=== PATIENT | female | born 2000 | race Caucasian/White ===

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

== ENCOUNTER 2021-02-11 18:42 | Emergency (ER) | payer MEDICAID, SELFPAY ==
[2021-02-11 19:02] VITALS: BP 123/86; PULSE 97; RESP 20; TEMP 37; O2SAT 97
--- NOTE | 2021-02-11 19:17 | ED_ITS ---
HPI - COVID General: Chief Complaint: COVID symptoms Stated Complaint: Cough, Covid + Results Time Seen by Provider: 02/11/21 19:16 Triage information: Has fever, cough or shortness of breath . Exposure to COVID + person last 14 days History of Present Illness: HPI Narrative: 20-year-old female comes in today for persistent cough and congestion for about 2 weeks. Patient been treated for bronchitis. Patient had a COVID-19 test done from [employer] and it tested positive. Patient has come in for a verification of the test due to where she works. Patient reports some cough and congestion with some mild shortness of breath. COVID 19 common symptoms: positive non-productive cough and dyspnea COVID Results: SARS-CoV-2 Antigen (Rapid) Positive (Negative) H 02/11/21 19:51 02/11/21 SARS-CoV-2 RNA (RT-PCR) See comment 05/12/20 10:52 05/12/20 Review of Systems General: Reports: 10 or more systems reviewed and unremarkable except in HPI and below Resp: Reports: dyspnea and non-productive cough PFSH ED PFSH: Medical History Pelvic pain Surgical History No history of previous surgery S/P breast biopsy Benign cyst Family History Father Seizures Hypertension Stroke Mother No problems noted. Grandmother Hypertension paternal Grandfather Hypertension paternal Diabetes paternal Family/Other Diabetes paternal uncle Social History Smoking and tobacco status: never smoked Alcohol intake: never Marital status: Number of children: 1 Current occupational status: employed Physical Exam Const: COMMON NORMALS: no acute distress and patient oriented x3 GENERAL APPEARANCE: cooperative HENMT: COMMON NORMALS: normocephalic, TM's normal bilaterally and Normal external nose present HEAD & SCALP: normal to inspection and normocephalic NOSE: Normal external nose present TYMPANIC MEMBRANE: TM's normal bilaterally MOUTH: Normal oral and palatal mucosa present THROAT: posterior oropharynx normal Eye: GENERAL EYE: appearance normal, both eyes and all related structures Neck/C-Spine: COMMON NORMALS: full ROM Lymph: LYMPHATIC: no lymphadenopathy noted Chest: COMMONS NORMALS: normal inspection of the chest Resp: COMMON NORMALS: normal respiratory effort and clear to auscultation bilaterally EFFORT & INSPECTION: Yes able to speak in complete sentences AUSCULTATION: clear to auscultation bilaterally Cardio: COMMON NORMALS: regular rate and regular rhythm RATE: regular rate RHYTHM: regular rhythm GI: COMMON NORMALS: non-tender : COMMON NORMALS: Yes no CVA tenderness BLADDER/KIDNEY EXAM: Yes no CVA tenderness Back/Pelvis: COMMON NORMALS: no CVA tenderness and thoracic and lumbar spine normal to inspection Extremity: COMMON NORMALS: normal to inspection Neuro: COMMON NORMALS: patient oriented x3 and moves all extremities Psych: COMMON NORMALS: mental status grossly normal and cooperative Skin: COMMON NORMALS: no rashes or lesions noted GENERAL SKIN EXAM: no rashes or lesions noted Course Vital Signs: Vital signs: Vital Signs Temperature 98.6 F 02/11/21 19:02 Pulse Rate 97 02/11/21 19:02 Respiratory Rate 20 H 02/11/21 19:02 Blood Pressure 152/105 02/11/21 19:41 Pulse Oximetry 98 02/11/21 19:41 MDM - COVID MDM Narrative: Medical decision making narrative: 20-year-old female comes in today for complaints of chest discomfort. Patient reports that she has been ill for probably about 2 weeks but has had 2 rounds of antibiotics without any help. Patient reports over last 2 to 3 days she has felt worse. On exam patient Vital signs are normal. Respirations are even lungs are clear to auscultation. Skin is warm and dry color is pink. Differential diagnosis includes bronchitis, pneumonia, COVID-19. X-ray noted no pneumonia. COVID-19 test was positive. Patient did have a positive home COVID-19 test t00. Recommended out of work for 1 week. Encourage plenty of fluids and activity as tolerated. Lab Data: Labs: Lab Results 02/11/21 Range/Units 19:51 SARS-CoV-2 Ag (Rap id) Positive H (Negative) COVID Results: SARS-CoV-2 Antigen (Rapid) Positive (Negative) H 02/11/21 19:51 02/11/21 SARS-CoV-2 RNA (RT-PCR) See comment 05/12/20 10:52 05/12/20 Discharge Plan Discharge Patient Disposition: Home Clinical Impression: COVID-19 Condition: Stable Prescriptions: No Action medroxyprogesterone [Depo-Provera] 150 mg/mL suspension 150 mg IM .every 90 days Qty: 1 RF: 2 Vistaril 25 mg capsule 25 mg PO BID Qty: 20 RF: 0 Discharge Orders: Discharge ED (Routine); Ordered 02/11/21 Ordered By: Tramaine Villalobos Referrals: Shoshana Looney FNP [Primary Care Provider] - Discharge Diet: Usual diet Discharge Activity: Increase activity as tolerated Patient Instructions: Viral Syndrome (ED), Opioid Safety Activity Restrictions/Additional Instructions: Encourage plenty of fluids. Use acetaminophen and ibuprofen for pain. Activity as tolerated. Follow-up with primary care as needed. Return to the ED for new concerns. Stand Alone Forms: Work/School Release Coding Level of Care Code ED Interrelated Special Education Teacher for Jesse Fwamy Exam Comprehensive
--- NOTE | 2021-02-11 19:26 | XRR_ITS ---
PROCEDURE INFORMATION: Exam: XR Chest Exam date and time: 02/11/2021 7:26 PM Age: 20 years old Clinical indication: Cough; Additional info: Cough, congestion TECHNIQUE: Imaging protocol: XR of the chest. Views: 1 view. COMPARISON: CR XR chest 1V portable [id number] 11/10/2019 10:07 PM FINDINGS: Lungs: Unremarkable. No consolidation. Pleural spaces: Unremarkable. No pleural effusion. No pneumothorax. Heart/Mediastinum: Unremarkable. No cardiomegaly. Bones/joints: Unremarkable. XR/XR chest 1V portable [id number] IMPRESSION: No acute findings.
[2021-02-11 19:41] VITALS: BP 152/105; O2SAT 98
[2021-02-11 20:56] LABS: SARS Covid-2 Antigen Positive (Negative)
[2021-02-11 21:18] VITALS: BP 171/99; PULSE 97; RESP 18; O2SAT 96
== END 2021-02-11 21:20 | disposition home or self-care (01) ==
PROVIDERS: Emergency Provider Nurse Practitioner Family; PCP Nurse Practitioner Family
DX: U07.1 COVID-19 (principal)
CPT/HCPCS: 71045; 87426; 99283

== ENCOUNTER → 2021-02-21 09:58 | Outpatient (BNVA) | payer MEDICAID, SELFPAY | PROVIDERS: PCP Nurse Practitioner Family; Visit Provider Podiatrist Foot & Ankle Surgery | DX: M25.571 Pain in right ankle and joints of right foot (principal) | CPT/HCPCS: 73630 ==

== ENCOUNTER → 2021-04-20 11:18 | Outpatient (BNVA) | payer MEDICAID, SELFPAY | PROVIDERS: PCP Nurse Practitioner Family; Visit Provider Obstetrics & Gynecology | DX: N93.9 Abnormal uterine and vaginal bleeding, unspecified (principal) | CPT/HCPCS: 83036; 83525; 84443 ==

== ENCOUNTER 2021-07-16 10:01 | Outpatient (CLI) | payer MEDICAID, SELFPAY ==
[2021-07-17 14:08] LABS: Insulin ( Reference Lab Test) 20.9 uIU/mL
== END 2021-07-16 10:02 | disposition home or self-care (01) ==
LOC: LAB 10:08
PROVIDERS: PCP Nurse Practitioner Family; Visit Provider Obstetrics & Gynecology
DX: N92.6 Irregular menstruation, unspecified (principal)
CPT/HCPCS: 36415; 76830; 81025; 83525; 84702

== ENCOUNTER 2021-08-02 21:32 | Emergency (ER) | payer MEDICAID, SELFPAY ==
[2021-08-02 21:42] VITALS: BP 135/95; PULSE 99; RESP 16; TEMP 36.6; O2SAT 99; BMI 34.0
--- NOTE | 2021-08-02 23:09 | ED_ITS ---
HPI - General Adult General: Chief complaint: General Medical Stated complaint: diabetic, preg, dizzy Time Seen by Provider: 08/02/21 23:07 History of Present Illness: HPI narrative: 21-year-old female comes in today with complaints of malaise and a headache. Patient appears well. Patient appears no acute distress. Patient states that she just found out she was but does not tell me how she knows she is whether she took a test at home or a test at another clinic. Patient said that she was tested at [facility] for COVID-19 and was negative. Review of the record noted that patient had a test on the third of this month and it was negative. Patient reports that she is trying to get . Patient is to have some lab work tomorrow morning at her OBs office to confirm . Associated symptoms: Reports malaise Review of Systems Const: Reports: malaise [facility] PFSH: Medical History (Updated 08/03/21 @ 00:27 by ALLIE Garcia) Hand pain Pelvic pain Surgical History No history of previous surgery S/P breast biopsy Benign cyst Family History Father Seizures Hypertension Stroke Mother No problems noted. Grandmother Hypertension paternal Grandfather Hypertension paternal Diabetes paternal Family/Other Diabetes paternal uncle Social History (Updated 07/16/21 @ 08:31 by Unique Whitten LPN) Smoking and tobacco status: never smoked Alcohol intake: never Marital status: Number of children: 1 Physical Exam Const: COMMON NORMALS: patient oriented x3 and healthy appearing NUTRITIONAL APPEARANCE: overweight HENMT: COMMON NORMALS: atraumatic HEAD & SCALP: atraumatic Neck/C-Spine: COMMON NORMALS: full ROM Resp: COMMON NORMALS: normal respiratory effort Cardio: COMMON NORMALS: regular rate and regular rhythm RATE: regular rate RHYTHM: regular rhythm Extremity: COMMON NORMALS: no pedal edema Neuro: COMMON NORMALS: patient oriented x3 Psych: ATTITUDE: Yes calm Skin: COMMON NORMALS: no rashes or lesions noted GENERAL SKIN EXAM: no rashes or lesions noted Course Vital Signs: Vital signs: Vital Signs Temperature 97.8 F 08/02/21 21:42 Pulse Rate 77 08/02/21 23:31 Respiratory Rate 16 08/02/21 21:42 Blood Pressure 129/75 08/02/21 23:31 Pulse Oximetry 99 08/02/21 21:42 MDM - General Adult MDM Narrative: Medical decision making narrative: Patient comes in today with complaints of a headache and some dizziness. Patient did have a positive test and has been working hard to get . On exam respirations are even lungs are clear to auscultation. Vital signs are normal. Patient is not orthostatic. No neural deficits are noted. Differential diagnosis includes but not limited to dehydration, migraine headache, tension headache, malingering. La boratory values were unremarkable. Urinalysis was contaminated with large amounts of skin cells. Patient's hCG was approximately 740. Recommended patient drink plenty of water I do not recommend any medications at this time for her headache. Recommend may be some muscle rub and contact her primary care or NEGATIVE DEVELOPER tomorrow about what they would recommend. Patient agreed to plan and need for follow-up or return to the ER. Lab Data: Labs: Lab Results 08/02/21 08/02/21 08/02/21 23:10 23:26 23:26 WBC 11.7 10^3/uL 10^3 /uL (4.5-13.0) RBC 4.79 10^6/uL 10^6 /uL (4.1-5.3) Hgb 13.1 g/dL g/dL (11.5-15.3) Hct 40.7 % % (37.0-47.0) MCV 85.0 fl fl (81-99) MCH 27.3 pg L pg (28.0-34.0) MCHC 32.2 g/dL g/dL (30.0-36.0) RDW 13.9 % % (12.1-15.1) Plt Count 250 10^3/cmm 10^3 /cmm (130-400) MPV 13.3 fL H fL (7.4-10.4) Neut % (Auto) 60.0 % % Lymph % (Auto) 29.6 % % Lipscomb % (Auto) 7.2 % % Eos % (Auto) 2.4 % % Baso % (Auto) 0.5 % % Neut # (Auto) 6.98 10^3/uL 10^3 /uL (1.8-8.0) Lymph # (Auto) 3.5 10^3/uL 10^3/ uL (1.5-6.5) Lipscomb # (Auto) 0.8 10^3/uL 10^3/ uL (0.2-0.9) Eos # (Auto) 0.3 10^3/uL 10^3/ uL (0.0-0.8) Baso # (Auto) 0.1 10^3/uL 10^3/ uL (0.0-0.1) Nucleated RBC % (a uto) 0 % % Nucleated RBCs # 0.0 /100WBC /100W BC Sodium 138 mmol/L mmol/L (136-145) Potassium 3.6 mmol/L mmol/L (3.5-5.1) Chloride 103 mmol/L mmol/L (98-107) Carbon Dioxide 22 mmol/L mmol/L (22-29) Anion Gap 16.6 (5-19) BUN 8 mg/dL mg/dL (6-20) Creatinine 0.5 mg/dL mg/dL (0.5-0.9) GFR Calculation 157.3 mL/min H mL /min (90-130) Glucose 94 mg/dL mg/dL (65-115) Calculated Osmolal ity 284 mOsm/kg L mOs m/kg (285-295) Calcium 8.4 mg/dL L mg/dL (8.5-10.5) Ser , Erin i-Qnt 792.00 mIU/mL mIU /mL Urine Color Yellow (Yellow) Urine Appearance Hazy A (CLEAR) Urine pH 5 (5-7) Ur Specific Gravit y 1.030 (1.005-1.030) Urine Protein Neg (Negative) Urine Glucose (UA) Norm (Normal) Urine Ketones Negative (Negative) Urine Blood Neg (Negative) Urine Nitrate Negative (Negative) Urine Bilirubin Neg (Negative) Urine Urobilinogen Norm mg/dL mg/dL (Negative) Ur Leukocyte Regina ase 2+ H (Negative) Urine RBC 0-4 /hpf H /hpf (0-2) Urine WBC 40-55 /hpf H /hpf (0-5) Ur Squamous Epith Cells 40-55 /hpf H /hpf (0-5) Calcium Oxalate Cr ystal 0-4 /hpf H /hpf Amorphous Sediment Not Reportable Urine Bacteria 2+ /hpf H /hpf (NONE) Urine Mucus 2+ /hpf /hpf Discharge Plan Discharge Patient Disposition: Home Clinical Impression: and infectious disease in first trimester Headache Qualifiers: Headache type: unspecified Headache chronicity pattern: acute headache Intractability: not intractable Qualified Code(s): R51.9 - Headache, unspecified Condition: Stable Prescriptions: No Action No Known Home Medications RF: 0 Discharge Orders: Discharge ED (Routine); Ordered 08/03/21 Ordered By: Tramaine Villalobos Referrals: Shoshana Looney FNP [Primary Care Provider] - Discharge Diet: Usual diet Discharge Activity: Increase activity as tolerated Activity Restrictions/Additional Instructions: Home and rest. Drink plenty of fluids. Follow-up with primary care or NEGATIVE DEVELOPER in the morning for further evaluation and treatment. Return to the ER as needed. Coding Level of Care Code ED Edge Bander Operator for Jesse Fwd Exam Comprehensive
[2021-08-02 23:27] LABS: Add Urine Culture? No; Add Urine Microscopic? YES; Bacteria Urine 2+ /hpf; Bilirubin Urine Neg (Negative); Blood Urine Neg (Negative); Calcium Oxalate Crystals Urine 0-4 /hpf; Glucose Urine UA Norm (Normal); Ketones Urine Negative (Negative); Leukocyte Esterase Urine 2+ (Negative); Mucus Urine 2+ /hpf; Nitrate Urine Negative (Negative); Protein Urine Neg (Negative); RBC Urine 0-4 /hpf (0-2); Squamous Epithelial Cell Urine 40-55 /hpf (0-5); Urine Appearance Hazy (CLEAR); Urine Color Yellow (Yellow); Urobilinogen Urine Norm (Negative); WBC Urine 40-55 /hpf (0-5); pH Urine 5 (5-7)
[2021-08-02 23:31] VITALS: BP 127/89; BP 129/75; BP 137/96; PULSE 77; PULSE 91; PULSE 92
[2021-08-02 23:37] LABS: Basophils # 0.1 10^3/uL (0.0-0.1); Basophils % 0.5 %; Eosinophils # 0.3 10^3/uL (0.0-0.8); Eosinophils % 2.4 %; Hematocrit 40.7 % (37.0-47.0); Hemoglobin 13.1 g/dL (11.5-15.3); Lymphocytes # 3.5 10^3/uL (1.5-6.5); Lymphocytes % 29.6 %; Mean Corpuscular HGB Conc 32.2 g/dL (30.0-36.0); Mean Corpuscular Hemoglobin 27.3 pg (28.0-34.0); Monocytes # 0.8 10^3/uL (0.2-0.9); Monocytes % 7.2 %; Neutrophils # 6.98 10^3/uL (1.8-8.0); Nucleated Red Blood Cells % 0 %; Platelet Count 250 10^3/cmm (130-400); Red Blood Count 4.79 10^6/uL (4.1-5.3); Red Cell Distribution Width 13.9 % (12.1-15.1); White Blood Count 11.7 10^3/uL (4.5-13.0)
[2021-08-02 23:55] LABS: Mean Platelet Volume 13.3 fL (7.4-10.4)
[2021-08-03 00:19] LABS: Anion Gap 16.6 (5-19); Blood Urea Nitrogen 8 mg/dL (6-20); Calcium 8.4 mg/dL (8.5-10.5); Carbon Dioxide 22 mmol/L (22-29); Chloride 103 mmol/L (98-107); Glomerular Filtration Rate 157.3 mL/min (90-130); Glucose 94 mg/dL (65-115); Osmolality Calculated 284 mOsm/kg (285-295); Potassium 3.6 mmol/L (3.5-5.1); Sodium 138 mmol/L (136-145)
== END 2021-08-03 00:40 | disposition home or self-care (01) ==
PROVIDERS: Family Medicine; Emergency Provider Nurse Practitioner Family; PCP Nurse Practitioner Family
DX: O98.911 Unspecified maternal infectious and parasitic disease complicating pregnancy, first trimester (principal); Z3A.00 Weeks of gestation of pregnancy not specified; O26.891 Other specified pregnancy related conditions, first trimester; R51.9 Headache, unspecified; R42 Dizziness and giddiness
CPT/HCPCS: 80048; 81001; 84702; 85025; 99283

== ENCOUNTER → 2021-08-06 09:35 | Outpatient (BNVA) | payer MEDICAID, SELFPAY | PROVIDERS: PCP Nurse Practitioner Family; Visit Provider Obstetrics & Gynecology | DX: Z32.01 Encounter for pregnancy test, result positive (principal) | CPT/HCPCS: 84702 ==

== ENCOUNTER 2021-08-13 15:21 | Outpatient (CLI) | payer MEDICAID, SELFPAY ==
--- NOTE | 2021-08-13 15:30 | US_ITS ---
WS: [id number] EARLY OBSTETRICAL ULTRASOUND (<14 WEEKS). HISTORY: Z34.90 - Encounter for supervision of normal , dating evaluation. COMPARISON: None available. Single intrauterine gestational sac is identified. Cardiac activity at 116 BPM. [place]-rump length angy sures 0.5 cm which corresponds to a gestation of 6w2d. Normal-appearing yolk sac and amnion demonstra mala. No subchorionic hemorrhage. No free fluid. Cystic mass in the LEFT adnexa inseparable from the ovary. There is a tiny soft tissue nodule associa mala with cyst. This cyst was a complex cyst on the prior study of 07/16/2021 with thick septations. The re is some increased vascularity noted within the septations. There are no septations identified on t jacquie's examination although there is a soft tissue nodule within the wall. LEFT adnexal cyst measures 3.6 x 3.8 x 3.8 cm. Mural nodule measures 1.0 x 0.5 cm. US/US OB <=14 wk fetus w transvag IMPRESSION: 1. Single intrauterine gestation of 6 weeks 2 days with an EDC of 04/06/2022. 2. Large LEFT adnexal cyst with a nodule. This is probably a corpus luteum cys t. Thick septations with mild increased vascularity noted on the prior ultrasou nd of 07/16/2021 where associated with the ovary. Septations are no longer presen t. Recommend short-term reevaluation of the LEFT ovary to be sure this cystic m ass resolves and that this is a corpus luteum of . Recommend follow-up ultrasound in 4-6 weeks. Transvaginal ultrasound may be necessary.
== END 2021-08-13 15:22 | disposition home or self-care (01) ==
PROVIDERS: PCP Nurse Practitioner Family; Visit Provider Obstetrics & Gynecology
DX: Z34.01 Encounter for supervision of normal first pregnancy, first trimester; Z3A.01 Less than 8 weeks gestation of pregnancy
CPT/HCPCS: 76801; 76817

== ENCOUNTER 2021-08-14 16:43 | Outpatient (CLI) | payer MEDICAID, SELFPAY ==
[2021-08-14 16:59] LABS: Add Urine Microscopic? YES; Bilirubin Urine 1+ (Negative); Blood Urine Neg (Negative); Glucose Urine UA Norm (Normal); Ketones Urine Negative (Negative); Leukocyte Esterase Urine 2+ (Negative); Nitrate Urine Negative (Negative); Protein Urine Neg (Negative); Urine Appearance SL Hazy (CLEAR); Urine Color Yellow (Yellow); Urobilinogen Urine Norm (Negative); pH Urine 5 (5-7)
[2021-08-14 17:09] LABS: Add Urine Culture? No; Bacteria Urine 1+ /hpf; Mucus Urine 1+ /hpf; Squamous Epithelial Cell Urine 15-25 /hpf (0-5); WBC Urine 0-4 /hpf (0-5)
== END 2021-08-14 16:44 | disposition home or self-care (01) ==
PROVIDERS: PCP Nurse Practitioner Family; Visit Provider Obstetrics & Gynecology
DX: R39.9 Unspecified symptoms and signs involving the genitourinary system (principal)
CPT/HCPCS: 81001; 87086

== ENCOUNTER → 2021-08-23 00:01 | Outpatient (BNVA) | payer MEDICAID, SELFPAY | PROVIDERS: PCP Nurse Practitioner Family; Visit Provider Obstetrics & Gynecology | DX: R39.9 Unspecified symptoms and signs involving the genitourinary system (principal) | CPT/HCPCS: 81000; 87086 ==

== ENCOUNTER → 2021-08-28 14:51 | Outpatient (BNVA) | payer MEDICAID, SELFPAY | PROVIDERS: PCP Nurse Practitioner Family; Visit Provider Nurse Practitioner Women's Health | DX: Z34.80 Encounter for supervision of other normal pregnancy, unspecified trimester (principal) | CPT/HCPCS: 81000 ==

== ENCOUNTER → 2021-09-17 11:20 | Outpatient (BNVA) | payer MEDICAID, SELFPAY | PROVIDERS: PCP Nurse Practitioner Family; Visit Provider Obstetrics & Gynecology | DX: O09.899 Supervision of other high risk pregnancies, unspecified trimester (principal) | CPT/HCPCS: 80307; 84315; 84443; 85025; 86592; 86762; 86803; 86850; 86900; 87086; 87340 ==

== ENCOUNTER → 2021-10-22 08:31 | Outpatient (BNVA) | payer MEDICAID, SELFPAY | PROVIDERS: PCP Nurse Practitioner Family; Visit Provider Obstetrics & Gynecology | DX: O09.899 Supervision of other high risk pregnancies, unspecified trimester (principal) | CPT/HCPCS: 81000 ==

== ENCOUNTER 2021-11-05 09:35 | Emergency (ER) | payer MEDICAID, SELFPAY ==
[2021-11-05 09:53] VITALS: BP 123/85; PULSE 97; RESP 15; TEMP 37.4; O2SAT 97; BMI 30.9
--- NOTE | 2021-11-05 10:13 | CT_ITS ---
WS: [id number] CT HEAD NONCONTRAST HISTORY: worst headache she has ever had, left side weakness TECHNIQUE: Contiguous axial imaging performed through the brain in 2.5 mm imaging. Bone and soft tiss ue windows. Sagittal and coronal reformats reviewed. All CT scans at [facility] use at least one of these dose optimization techniques: automated exposure control; mA and/or kV adjustment per pa tient size (includes targeted exams where dose is matched to clinical indication); or iterative recon struction. DLP: 893.6 mGy.cm COMPARISON: None available. No acute intracranial hemorrhage, midline shift or mass effect. No atrophy or prior infarcts or herniation. Ventricles: Normal size with no hydrocephalus. Paranasal sinuses: As visualized are clear. Mastoid air cells: Well pneumatized. Calvarium and scalp: Skull is intact with no soft tissue edema or swelling. CT/CT head wo con* [id number] IMPRESSION: Negative head CT.
--- NOTE | 2021-11-05 10:15 | ED_ITS ---
HPI - Headache General: Chief Complaint: Headache Stated Complaint: headache, weakness Time Seen by Provider: 11/05/21 10:02 History of Present Illness: Patient is a 21-year-old female who is 18 weeks comes to the ED with a headache and some left-sided weakness. Patient was seen at her OB doctor today. Patient had a normal OB exam and heart tones were normal at OB appointment today. She told OB doctor about her headache and left-sided weakness and they sent her here to the ED to be evaluated. Patient says she is having the worst headache she ever had is on the left side of her head. She rates it a 10 out of 10. She says has been going on for the past 3 weeks. Today she woke up and had some weakness to her left arm and left leg. Headache worsens with light. She denies any nausea or emesis. She does not have a history of migraines. Denies any vision changes. Denies any vaginal bleeding or concerns about current . Associated symptoms: Deny chest pain, fever(s), nausea, rash or vomiting Review of Systems Const: Denies: fever(s), chills or fatigue Eyes: Denies: change in vision or eye discomfort ENMT: Denies: throat pain, odynophagia, nasal discharge or nasal congestion Card: Denies: chest pain, palpitations, edema, swelling of feet/ankles, dyspnea on exertion or orthopnea Resp: Denies: dyspnea, productive cough or non-productive cough GI: Denies: abdominal pain, nausea, vomiting, diarrhea, constipation or hematochezia : Denies: flank pain, dysuria, hematuria, vaginal bleeding or vaginal discharge Musc: Denies: neck pain, back pain or extremity swelling Skin/Breast: Denies: rash or new lesions Neuro: Reports: headache(s) and weakness in extremities (Left arm and left leg); Denies: numbness in extremities PFS ED PFSH: Medical History Hand pain Hyperprolactinemia Pelvic pain Surgical History No history of previous surgery S/P breast biopsy Benign cyst Family History Father Seizures Hypertension Stroke Mother No problems noted. Grandmother Hypertension paternal Grandfather Hypertension paternal Diabetes paternal Family/Other Diabetes paternal uncle Stomach cancer maternal aunt Denies family history of Colon cancer Ovarian cancer Heart disease Hypercholesteremia Breast cancer Uterine cancer Thyroid disease Physical Exam Const: COMMON NORMALS: no acute distress, patient oriented x3 and alert GENERAL APPEARANCE: cooperative HENMT: COMMON NORMALS: normocephalic HEAD & SCALP: normocephalic MOUTH: Normal oral and palatal mucosa present THROAT: posterior oropharynx normal and uvula midline Eye: COMMON NORMALS: Equal, round and reactive pupils present, EOMs intact bilaterally and conjunctivae normal CONJUNCTIVA: Yes conjunctivae normal PUPIL: Yes Equal, round and reactive pupils present Neck/C-Spine: COMMON NORMALS: supple GENERAL: Yes normal visual inspection Resp: COMMON NORMALS: normal respiratory effort, No retractions, No use of accessory muscles and clear to auscultation bilaterally AUSCULTATION: clear to auscultation bilaterally Cardio: COMMON NORMALS: regular rate, regular rhythm, S1 normal heart sound present, S2 normal heart sound present, No gallops present (Cardio), No clicks present (Cardio), No murmurs present (Cardio) and Peripheral pulses 2+ throughout RATE: regular rate RHYTHM: regular rhythm HEART SOUNDS: S1 normal heart sound present and S2 normal heart sound present PERIPHERAL PULSES: Peripheral pulses 2+ throughout GI: COMMON NORMALS: Normal to inspection, nondistended, normoactive bowel sounds present, Soft to palpation, non-tender and no masses PALPATION: Yes Soft to palpation : COMMON NORMALS: Yes no CVA tenderness BLADDER/KIDNEY EXAM: Yes no CVA tenderness Back/Pelvis: COMMON NORMALS: no CVA tenderness Extremity: COMMON NORMALS: normal to inspection Neuro: COMMON NORMALS: patient oriented x3, CN's II-XII intact bilaterally, moves all extremities, no focal motor deficits and no sensory deficits noted SENSORIUM/ORIENTATION: Yes alert SENSORY EXAM: Yes extremities (intact) MOTOR EXAM: 5/5 motor strength present throughout Skin: GENERAL SKIN EXAM: dry skin Course Reevaluation(s): Reevaluation #1: Patient headache improved after medications. Patient would like to rest has ready to be discharged home. Time: 12:20 Vital Signs: Vital signs: Vital Signs Temperature 98 F 11/05/21 12:55 Pulse Rate 66 11/05/21 12:55 Respiratory Rate 18 11/05/21 12:55 Blood Pressure 129/56 11/05/21 12:55 Pulse Oximetry 96 11/05/21 12:55 MDM - Headache Medical Decision Making Patient is a 21-year-old female comes to the ED with headache. Patient is also 18 weeks and was seen at her OB this morning and they told her to come here to the ED for evaluation of headache. Patient has no or baby concerns. Headaches been going on now for 3 weeks. Vitals are stable. Exam is benign including neuro exam showing no deficits as well. UA was unremarkable. Head CT showed no acute findings. Patient was given IV pain meds here in the ED and headache did improve. Patient was stable for discharge home. She was told to follow-up with her OB at her next scheduled appointment. Lab Data Radiology Impressions Head CT 11/05/21 10:13 IMPRESSION: Negative head CT. Laboratory Results Urine Color Yellow (Yellow) 11/05/21 10:04 Urine Appearance Clear (CLEAR) 11/05/21 10:04 Urine pH 7 (5-7) 11/05/21 10:04 Ur Specific [place] 1.020 (1.005-1.030) 11/05/21 10:04 Urine Protein Neg (Negative) 11/05/21 10:04 Urine Glucose (UA) Norm (Normal) 11/05/21 10:04 Urine Ketones Negative (Negative) 11/05/21 10:04 Urine Blood Neg (Negative) 11/05/21 10:04 Urine Nitrate Negative (Negative) 11/05/21 10:04 Urine Bilirubin Neg (Negative) 11/05/21 10:04 Urine Urobilinogen Norm mg/dL (Negative) 11/05/21 10:04 Ur Leukocyte Esterase Negative (Negative) 11/05/21 10:04 Discharge Plan Discharge Patient Disposition: Home Clinical Impression: Headache Qualifiers: Headache type: unspecified Headache chronicity pattern: acute headache Intractability: not intractable Qualified Code(s): R51.9 - Headache, unspecified Condition: Stable Prescriptions: No Action Gummies 400 mcg-35 mg- 25 mg-5 mg tablet,chewable PO 0RF aspirin [Adult Aspirin Regimen] 81 mg tablet,delayed release (DR/EC) 81 mg PO DAILY 0RF acetaminophen [Tylenol] 325 mg capsule 325 mg PO QID PRN0RF buspirone 5 mg tablet 5 mg PO BID Qty: 60 6RF ondansetron HCl [Zofran] 4 mg tablet 4 mg PO Q6H PRN (Reason: nausea and vomiting) Qty: 30 2RF Rx Instructions: Take one tablet every 6 hours as needed for nausea/vomiting. Discharge Orders: Discharge ED (Routine); Ordered 11/05/21 Ordered By: Trent Overton Referrals: Shoshana Looney FNP [Primary Care Provider] - Discharge Diet: Regular Discharge Activity: Increase activity as tolerated Activity Restrictions/Additional Instructions: Follow-up with your OB provider at your neck scheduled appointment. Take medications as previously prescribed. Return to the ER or your medical provider if condition worsens. Please read and understand discharge instructions. Thank you for choosing [facility] for your healthcare needs today. Please realize this is an emergency room and that we are providing you with a medical screening exam and this may not be complete and all inclusive of all the testing and or work up that you may need to determine your ailment or severity of your illness. It is very important that you follow up as instructed or that you return to the Emergency Department should you have concerns or if your condition changes or worsens in any way. Coding Level of Care Code ED Electrical Appliance Mechanic for Jesse Plunkett Exam Comprehensive
[2021-11-05 10:31] VITALS: BP 136/88; PULSE 80; RESP 18; TEMP 36.6; O2SAT 96
[2021-11-05 10:38] LABS: Add Urine Microscopic? NO; Charge for UA Resulting for Rev
[2021-11-05] MEDS: acetaminophen 1,000 MG/100 ML PIGGYBACK 400 MG IV (10:38)
[2021-11-05] MEDS: diphenhydrAMINE 50 mg/mL SDV 1mL 25 MG IVP (10:38)
[2021-11-05] MEDS: sodium chloride 0.9% 500 ML 999 ML IV (10:39)
[2021-11-05 10:41] LABS: Bilirubin Urine Neg (Negative); Blood Urine Neg (Negative); Glucose Urine UA Norm (Normal); Ketones Urine Negative (Negative); Leukocyte Esterase Urine Negative (Negative); Nitrate Urine Negative (Negative); Protein Urine Neg (Negative); Urine Appearance Clear (CLEAR); Urine Color Yellow (Yellow); Urobilinogen Urine Norm (Negative); pH Urine 7 (5-7)
[2021-11-05] MEDS: HYDROcodone-acetaminophen 7.5-325 mg Tablet 1 TAB PO (11:29)
[2021-11-05 12:55] VITALS: BP 129/56; PULSE 66; RESP 18; TEMP 36.6; O2SAT 96
== END 2021-11-05 12:56 | disposition home or self-care (01) ==
PROVIDERS: Emergency Provider Physician Assistant; PCP Nurse Practitioner Family
DX: O26.892 Other specified pregnancy related conditions, second trimester (principal); R51.9 Headache, unspecified; Z3A.18 18 weeks gestation of pregnancy
CPT/HCPCS: 70450; 81000; 81003; 84443; 87086; 87491; 87591; 87661; 96361; 96374; 96375; 99283; J1200; J7040

== ENCOUNTER → 2021-11-22 08:44 | Outpatient (BNVA) | payer MEDICAID, SELFPAY | PROVIDERS: PCP Nurse Practitioner Family; Visit Provider Obstetrics & Gynecology | DX: O09.899 Supervision of other high risk pregnancies, unspecified trimester (principal); Z3A.00 Weeks of gestation of pregnancy not specified | CPT/HCPCS: 81000 ==

== ENCOUNTER 2021-12-31 11:55 | Outpatient (CLI) | payer MEDICAID, SELFPAY ==
[2021-12-31 11:55] VITALS: BMI 32.2
[2021-12-31 12:04] VITALS: BP 127/66; PULSE 90
[2021-12-31 12:15] LABS: Glucose Point of Care 107 mg/dL (70-110)
[2021-12-31 12:24] VITALS: BP 113/60; PULSE 99
[2021-12-31 12:57] VITALS: BP 113/60; PULSE 99; RESP 18
== END 2021-12-31 12:35 | disposition home or self-care (01) ==
LOC: OPOB 12:01 → OBGYN 12:03
PROVIDERS: PCP Nurse Practitioner Family; Visit Provider Family Medicine
DX: O26.899 Other specified pregnancy related conditions, unspecified trimester (principal); Z3A.00 Weeks of gestation of pregnancy not specified
CPT/HCPCS: 36416; 82962; 99211

== ENCOUNTER 2022-01-22 09:53 | Outpatient (CLI) | payer MEDICAID, SELFPAY ==
[2022-01-22] VITALS (10 sets, daily range): BP systolic 113–134; BP diastolic 53–70; PULSE 72–96; RESP 16–17; TEMP 36.3; BMI 33.1
[2022-01-22 10:55] LABS: Basophils % 0.4 %; Eosinophils # 0.1 10^3/uL (0.0-0.8); Hematocrit 31.4 % (37.0-47.0); Hemoglobin 9.9 g/dL (11.5-15.3); Lymphocytes # 1.9 10^3/uL (1.5-6.5); Lymphocytes % 20.1 %; Mean Corpuscular HGB Conc 31.5 g/dL (30.0-36.0); Mean Corpuscular Hemoglobin 26.6 pg (28.0-34.0); Mean Corpuscular Volume 84.4 fl (81-99); Monocytes # 0.7 10^3/uL (0.2-0.9); Monocytes % 7.3 %; Neutrophils # 6.44 10^3/uL (1.8-8.0); Neutrophils % 67.6 %; Nucleated Red Blood Cells % 0 %; Platelet Count 180 10^3/cmm (130-400); Red Blood Count 3.72 10^6/uL (4.1-5.3); Red Cell Distribution Width 14.1 % (12.1-15.1); White Blood Count 9.5 10^3/uL (4.5-13.0)
[2022-01-22 11:11] LABS: Alanine Aminotransferase < 5 U/L (0-33); Albumin Level 3.5 g/dL (3.5-5.2); Alkaline Phosphatase 60 IU/L (35-105); Anion Gap 15.3 (5-19); Aspartate Amino Transferase 9 U/L (0-32); Blood Urea Nitrogen 5 mg/dL (6-20); Carbon Dioxide 20 mmol/L (22-29); Chloride 105 mmol/L (98-107); Globulin 2.4 g/dL (1.3-4.6); Glomerular Filtration Rate 203.5 mL/min (90-130); Glucose 124 mg/dL (65-115); Osmolality Calculated 283 mOsm/kg (285-295); Potassium 3.3 mmol/L (3.5-5.1); Sodium 137 mmol/L (136-145); Total Bilirubin 0.2 mg/dL (0.15-1.2); Total Protein 5.9 g/dL (6.6-8.7); Uric Acid 3.5 mg/dL (2.4-5.7)
[2022-01-22 11:16] LABS: Mean Platelet Volume 13.7 fL (7.4-10.4)
[2022-01-22 11:17] LABS: Slide Review Slide Review Perform
[2022-01-22 11:26] LABS: Urine Creatinine 227 mg/dL (28-217); Urine Protein Random 19 mg/dL
[2022-01-22 11:27] LABS: UPRO/UCREAT Ratio 0.08 mg/mg CR
[2022-01-22] MEDS: potassium chloride ER 20 mEq Tablet PO (12:42)
[2022-01-22 21:17] LABS: Add Urine Microscopic? YES; Bacteria Urine 1+ /hpf; Bilirubin Urine Neg (Negative); Blood Urine 3+ (Negative); Glucose Urine UA Norm (Normal); Ketones Urine Negative (Negative); Leukocyte Esterase Urine Negative (Negative); Nitrate Urine Negative (Negative); Protein Urine Neg (Negative); RBC Urine 25-40 /hpf (0-2); Specific Gravity, Urine 1.025 (1.005-1.030); Squamous Epithelial Cell Urine 0-4 /hpf (0-5); Urine Appearance Cloudy (CLEAR); Urine Color Yellow (Yellow); Urobilinogen Urine 1 mg/dL (Negative); WBC Urine 0-4 /hpf (0-5); pH Urine 6 (5-7)
[2022-01-22 21:18] LABS: Add Urine Culture? Yes; Amorphous Sediment Urine 2+ /hpf; Calcium Oxalate Crystals Urine 0-4 /hpf
== END 2022-01-22 12:45 | disposition home or self-care (01) ==
LOC: OPOB 09:54 → OBGYN 09:57
PROVIDERS: PCP Nurse Practitioner Family; Visit Provider Family Medicine
DX: O26.899 Other specified pregnancy related conditions, unspecified trimester (principal); Z3A.00 Weeks of gestation of pregnancy not specified; R60.9 Edema, unspecified; R42 Dizziness and giddiness
CPT/HCPCS: 59025; 80053; 81001; 82570; 84156; 84550; 85025; 87086; 99211

== ENCOUNTER → 2022-02-25 08:42 | Outpatient (BNVA) | payer MEDICAID, SELFPAY | PROVIDERS: PCP Nurse Practitioner Family; Visit Provider Obstetrics & Gynecology | DX: O09.899 Supervision of other high risk pregnancies, unspecified trimester (principal); N94.89 Other specified conditions associated with female genital organs and menstrual cycle; O09.291 Supervision of pregnancy with other poor reproductive or obstetric history, first trimester; O99.210 Obesity complicating pregnancy, unspecified trimester | CPT/HCPCS: 81000 ==

== ENCOUNTER → 2022-02-26 07:58 | Outpatient (BNVA) | payer MEDICAID, SELFPAY | PROVIDERS: PCP Nurse Practitioner Family; Visit Provider Obstetrics & Gynecology | DX: O09.899 Supervision of other high risk pregnancies, unspecified trimester (principal); Z3A.00 Weeks of gestation of pregnancy not specified | CPT/HCPCS: 82951; 82952; 85025 ==

== ENCOUNTER → 2022-03-08 13:15 | Outpatient (BNVA) | payer MEDICAID, SELFPAY | PROVIDERS: PCP Nurse Practitioner Family; Visit Provider Obstetrics & Gynecology | DX: R30.0 Dysuria (principal) | CPT/HCPCS: 81000; 87086 ==

== ENCOUNTER 2022-03-10 08:35 | Outpatient (CLI) | payer MEDICAID, SELFPAY ==
[2022-03-10 08:35] VITALS: BMI 36.2
[2022-03-10 08:51] VITALS: BP 135/72; PULSE 125
[2022-03-10 09:06] VITALS: BP 131/65; PULSE 117
[2022-03-10 09:18] LABS: Actim Prom Negative
[2022-03-10 09:21] VITALS: BP 125/65; PULSE 98
[2022-03-10 09:30] VITALS: BP 125/65; PULSE 98; RESP 16
== END 2022-03-10 09:30 | disposition home or self-care (01) ==
LOC: OPOB 08:40 → OBGYN 08:41
PROVIDERS: PCP Nurse Practitioner Family; Visit Provider Obstetrics & Gynecology
DX: O26.899 Other specified pregnancy related conditions, unspecified trimester (principal); Z3A.00 Weeks of gestation of pregnancy not specified; R10.9 Unspecified abdominal pain
CPT/HCPCS: 59025; 84112; 99211

== ENCOUNTER → 2022-03-12 11:27 | Outpatient (BNVA) | payer MEDICAID, SELFPAY | PROVIDERS: PCP Nurse Practitioner Family; Visit Provider Obstetrics & Gynecology | DX: O09.93 Supervision of high risk pregnancy, unspecified, third trimester (principal); Z3A.00 Weeks of gestation of pregnancy not specified | CPT/HCPCS: 81000; 87086 ==

== ENCOUNTER 2022-03-14 15:27 | Outpatient (CLI) | payer MEDICAID, SELFPAY ==
[2022-03-14] VITALS (8 sets, daily range): BP systolic 119–133; BP diastolic 61–82; PULSE 89–104; RESP 16; TEMP 36.1–36.6; BMI 36.7
[2022-03-14 16:29] LABS: Basophils # 0.1 10^3/uL (0.0-0.1); Basophils % 0.6 %; Eosinophils # 0.2 10^3/uL (0.0-0.8); Eosinophils % 1.3 %; Hemoglobin 10.1 g/dL (11.5-15.3); Lymphocytes # 2.1 10^3/uL (1.5-6.5); Lymphocytes % 17.4 %; Mean Corpuscular HGB Conc 30.6 g/dL (30.0-36.0); Mean Corpuscular Hemoglobin 24.9 pg (28.0-34.0); Mean Corpuscular Volume 81.3 fl (81-99); Mean Platelet Volume 14.1 fL (7.4-10.4); Monocytes % 7.9 %; Neutrophils # 8.36 10^3/uL (1.8-8.0); Neutrophils % 68.4 %; Nucleated Red Blood Cells % 0.2 %; Platelet Count 218 10^3/cmm (130-400); Red Blood Count 4.06 10^6/uL (4.1-5.3); White Blood Count 12.2 10^3/uL (4.5-13.0)
[2022-03-14 16:58] LABS: Add Urine Culture? No; Bacteria Urine TRACE /hpf; Bilirubin Urine Neg (Negative); Blood Urine 3+ (Negative); Glucose Urine UA Norm (Normal); Ketones Urine Negative (Negative); Leukocyte Esterase Urine Negative (Negative); Nitrate Urine Negative (Negative); Protein Urine Neg (Negative); RBC Urine 25-40 /hpf (0-2); Squamous Epithelial Cell Urine 0-4 /hpf (0-5); Urine Appearance Clear (CLEAR); Urine Color Yellow (Yellow); WBC Urine 0-4 /hpf (0-5); pH Urine 6 (5-7)
[2022-03-14 17:14] LABS: Alanine Aminotransferase 7 U/L (0-33); Albumin Level 3.2 g/dL (3.5-5.2); Alkaline Phosphatase 87 U/L (35-105); Anion Gap 15.1 (5-19); Aspartate Amino Transferase 10 U/L (0-32); Blood Urea Nitrogen 6 mg/dL (6-20); Calcium 8.6 mg/dL (8.5-10.5); Carbon Dioxide 21 mmol/L (22-29); Chloride 103 mmol/L (98-107); Globulin 2.6 g/dL (1.3-4.6); Glomerular Filtration Rate 203.5 mL/min (90-130); Glucose 76 mg/dL (65-115); Osmolality Calculated 276 mOsm/kg (285-295); Potassium 4.1 mmol/L (3.5-5.1); Sodium 135 mmol/L (136-145); Total Bilirubin 0.2 mg/dL (0.15-1.2); Total Protein 5.8 g/dL (6.6-8.7); Uric Acid 4.1 mg/dL (2.4-5.7)
[2022-03-14 17:16] LABS: Urine Creatinine 89 mg/dL (28-217); Urine Protein Random 9 mg/dL
[2022-03-14 17:26] LABS: Slide Review Slide Review Perform
== END 2022-03-14 17:45 | disposition home or self-care (01) ==
LOC: OPOB 15:28 → OBGYN 15:29
PROVIDERS: Obstetrics & Gynecology; PCP Nurse Practitioner Family; Visit Provider Obstetrics & Gynecology
DX: O26.899 Other specified pregnancy related conditions, unspecified trimester (principal); Z3A.00 Weeks of gestation of pregnancy not specified
CPT/HCPCS: 36415; 59025; 80053; 81000; 81001; 82570; 84156; 84550; 85025; 87081; 87086; 99211

== ENCOUNTER 2022-03-15 18:55 | Outpatient (CLI) | payer MEDICAID, SELFPAY ==
[2022-03-15] VITALS (7 sets, daily range): BP systolic 117–156; BP diastolic 70–78; PULSE 84–111; BMI 36.7
[2022-03-15] MEDS: HYDROcodone-acetaminophen 5-325 mg Tablet 1 TAB PO (20:04)
[2022-03-15 20:31] LABS: Bilirubin Urine Neg (Negative); Blood Urine 3+ (Negative); Glucose Urine UA Norm (Normal); Ketones Urine Negative (Negative); Leukocyte Esterase Urine Trace (Negative); Nitrate Urine Negative (Negative); Protein Urine Neg (Negative); Specific Gravity, Urine 1.015 (1.005-1.030); Urine Appearance Hazy (CLEAR); Urine Color Yellow (Yellow); Urobilinogen Urine Neg (Negative); pH Urine 6 (5-7)
[2022-03-15 20:32] LABS: Add Urine Culture? No; Bacteria Urine TRACE /hpf; Mucus Urine TRACE /hpf; RBC Urine 25-40 /hpf (0-2); Squamous Epithelial Cell Urine 15-25 /hpf (0-5)
== END 2022-03-15 21:00 | disposition home or self-care (01) ==
LOC: OPOB 18:57 → OBGYN 18:58
PROVIDERS: PCP Nurse Practitioner Family; Visit Provider Family Medicine
DX: O26.899 Other specified pregnancy related conditions, unspecified trimester (principal); R03.0 Elevated blood-pressure reading, without diagnosis of hypertension; G43.909 Migraine, unspecified, not intractable, without status migrainosus; Z3A.37 37 weeks gestation of pregnancy
CPT/HCPCS: 59025; 81001; 99211

== ENCOUNTER 2022-03-18 17:57 | Outpatient (CLI) | payer MEDICAID, SELFPAY ==
[2022-03-18] VITALS (17 sets, daily range): BP systolic 110–137; BP diastolic 54–91; PULSE 87–103; RESP 15; TEMP 35.9–36.9; BMI 37.4
--- NOTE | 2022-03-18 18:32 | USR_ITS ---
PROCEDURE INFORMATION: Exam: US Biophysical Profile Without Non-Stress Test Exam date and time: 03/18/2022 6:49 PM Age: 21 years old Clinical indication: Other: Decreased motion; ; Additional info: Decreased movement. TECHNIQUE: Imaging protocol: US biophysical profile without non-stress testing. COMPARISON: US OB >= 14 weeks fetus [facility] 11/22/2021 8:03 AM FINDINGS: heart rate: 129 bpm presentation: Cephalic Placenta: Posterior and Left grade 2 placenta . Amniotic fluid: Amniotic fluid volume is normal. Amniotic fluid index: RAJ is 16.8 cm. BIOPHYSICAL PROFILE: breathing movement (BPP): 0/2. Biophysical profile is 4/8. 0 for breathing and 0 for tone. body movement (BPP): 2/2 tone (BPP): 0/2 Amniotic fluid (BPP): 2/2 Biophysical profile score (BPP): 4/8 MATERNAL ANATOMY: Cervix: Cervical length measures 5.7 cm. US/US OB BPP wo NST [id number] IMPRESSION: Biophysical profile is 4/8. 0 for breathing and 0 for tone. Otherwise unremarkable exam.
[2022-03-18 18:57] LABS: Basophils # 0.1 10^3/uL (0.0-0.1); Basophils % 0.4 %; Eosinophils # 0.1 10^3/uL (0.0-0.8); Eosinophils % 1.2 %; Hemoglobin 9.6 g/dL (11.5-15.3); Lymphocytes % 18.1 %; Mean Corpuscular Hemoglobin 24.6 pg (28.0-34.0); Mean Corpuscular Volume 82.1 fl (81-99); Mean Platelet Volume 13.9 fL (7.4-10.4); Monocytes # 0.9 10^3/uL (0.2-0.9); Neutrophils # 7.61 10^3/uL (1.8-8.0); Neutrophils % 67.5 %; Nucleated Red Blood Cells % 0.4 %; Platelet Count 199 10^3/cmm (130-400); Red Cell Distribution Width 16.4 % (12.1-15.1); White Blood Count 11.3 10^3/uL (4.5-13.0)
[2022-03-18 19:00] LABS: Bacteria Urine TRACE /hpf; Bilirubin Urine Neg (Negative); Blood Urine Trace (Negative); Glucose Urine UA Norm (Normal); Ketones Urine Negative (Negative); Leukocyte Esterase Urine 1+ (Negative); Nitrate Urine Negative (Negative); Protein Urine Neg (Negative); RBC Urine 0-4 /hpf (0-2); Urine Appearance Clear (CLEAR); Urine Color Yellow (Yellow); Urobilinogen Urine Norm (Negative); pH Urine 6 (5-7)
[2022-03-18 19:15] LABS: Alanine Aminotransferase 8 U/L (0-33); Albumin Level 3.4 g/dL (3.5-5.2); Alkaline Phosphatase 87 U/L (35-105); Anion Gap 15.9 (5-19); Aspartate Amino Transferase 10 U/L (0-32); Blood Urea Nitrogen 6 mg/dL (6-20); Calcium 8.3 mg/dL (8.5-10.5); Carbon Dioxide 20 mmol/L (22-29); Chloride 107 mmol/L (98-107); Globulin 2.3 g/dL (1.3-4.6); Glomerular Filtration Rate 203.5 mL/min (90-130); Glucose 113 mg/dL (65-115); Osmolality Calculated 286 mOsm/kg (285-295); Potassium 3.9 mmol/L (3.5-5.1); Sodium 139 mmol/L (136-145); Total Bilirubin 0.2 mg/dL (0.15-1.2); Total Protein 5.7 g/dL (6.6-8.7); Uric Acid 4.4 mg/dL (2.4-5.7)
[2022-03-18 19:16] LABS: Urine Creatinine 48 mg/dL (28-217); Urine Protein Random 7 mg/dL
[2022-03-18 19:24] LABS: UPRO/UCREAT Ratio 0.15 mg/mg CR
[2022-03-18 19:39] LABS: Slide Review Slide Review Perform
[2022-03-19] VITALS (27 sets, daily range): BP systolic 88–133; BP diastolic 51–75; PULSE 75–114; RESP 15; TEMP 36.3–36.4
[2022-03-19] MEDS: acetaminophen 500 mg Tablet 1000 MG PO (08:03)
--- NOTE | 2022-03-19 08:07 | US_ITS ---
WS: [id number] BIOPHYSICAL PROFILE AMNIOTIC FLUID HISTORY: Abnormal biophysical profile 03/18/2022. COMPARISON: 03/18/2022 Cardiac activity: 129 bpm. Cervix: closed. Placenta: Posterior, no previa or abruption. Placenta grade: 2 Parameters are as follows: Breathin Movement: 2 Tone: 2 Fluid volume: 2 Amniotic fluid index: 16.1 cm. Largest vertical pocket of amniotic fluid is 4.7 cm. US/US OB BPP wo NST [id number] IMPRESSION: 1. Biophysical profile score: 8/8. 2. Normal amniotic fluid.
== END 2022-03-19 09:09 | disposition home or self-care (01) ==
LOC: OPOB 17:58 → OBGYN 03-19 08:56
PROVIDERS: PCP Nurse Practitioner Family; Visit Provider Obstetrics & Gynecology
DX: O16.3 Unspecified maternal hypertension, third trimester (principal); Z3A.37 37 weeks gestation of pregnancy; O26.893 Other specified pregnancy related conditions, third trimester; R51.9 Headache, unspecified
CPT/HCPCS: 36415; 59025; 76819; 80053; 81001; 82570; 84156; 84550; 85025; 99211; G0378

== ENCOUNTER → 2022-03-21 11:20 | Outpatient (BNVA) | payer MEDICAID, SELFPAY | PROVIDERS: PCP Nurse Practitioner Family; Visit Provider Obstetrics & Gynecology | DX: O99.213 Obesity complicating pregnancy, third trimester (principal); O16.3 Unspecified maternal hypertension, third trimester; Z3A.37 37 weeks gestation of pregnancy | CPT/HCPCS: 76816 ==

== ENCOUNTER 2022-03-21 16:37 | Inpatient (IN) | payer MEDICAID, SELFPAY ==
[2022-03-21] VITALS (9 sets, daily range): BP systolic 106–135; BP diastolic 56–79; PULSE 78–100; BMI 36.8
[2022-03-21 17:57] LABS: Basophils # 0.1 10^3/uL (0.0-0.1); Basophils % 0.5 %; Eosinophils # 0.1 10^3/uL (0.0-0.8); Eosinophils % 1.1 %; Hematocrit 32.4 % (37.0-47.0); Hemoglobin 9.8 g/dL (11.5-15.3); Lymphocytes # 1.8 10^3/uL (1.5-6.5); Lymphocytes % 16.8 %; Mean Corpuscular HGB Conc 30.2 g/dL (30.0-36.0); Mean Corpuscular Hemoglobin 24.6 pg (28.0-34.0); Mean Corpuscular Volume 81.2 fl (81-99); Monocytes # 0.8 10^3/uL (0.2-0.9); Monocytes % 7.1 %; Neutrophils # 7.65 10^3/uL (1.8-8.0); Neutrophils % 70.1 %; Nucleated Red Blood Cells % 0.4 %; Platelet Count 205 10^3/cmm (130-400); Red Blood Count 3.99 10^6/uL (4.1-5.3); Red Cell Distribution Width 17.1 % (12.1-15.1); White Blood Count 10.9 10^3/uL (4.5-13.0)
[2022-03-21 18:29] LABS: Slide Review Slide Review Perform
--- NOTE | 2022-03-21 18:44 | PC.NURSE ---
Pt states she has had blurry vision bilaterally and headaches. Pt states she spoke with her provider about such situation.
[2022-03-21 20:16] LABS: Bilirubin Urine Neg (Negative); Blood Urine 3+ (Negative); Glucose Urine UA Norm (Normal); Ketones Urine 1+ (Negative); Nitrate Urine Negative (Negative); Protein Urine Neg (Negative); Urine Appearance Clear (CLEAR); Urine Color Yellow (Yellow); pH Urine 6 (5-7)
[2022-03-21 20:17] LABS: Add Urine Microscopic? YES; Leukocyte Esterase Urine Trace (Negative); Urobilinogen Urine Norm (Negative)
[2022-03-21 20:18] LABS: Alanine Aminotransferase 9 U/L (0-33); Albumin Level 3.2 g/dL (3.5-5.2); Alkaline Phosphatase 97 U/L (35-105); Anion Gap 17.3 (5-19); Aspartate Amino Transferase 13 U/L (0-32); Blood Urea Nitrogen 8 mg/dL (6-20); Calcium 8.5 mg/dL (8.5-10.5); Carbon Dioxide 19 mmol/L (22-29); Chloride 101 mmol/L (98-107); Globulin 2.5 g/dL (1.3-4.6); Glomerular Filtration Rate 157.3 mL/min (90-130); Glucose 67 mg/dL (65-115); Osmolality Calculated 273 mOsm/kg (285-295); Potassium 4.3 mmol/L (3.5-5.1); RBC Urine TOO NUMEROUS TO CNT /hpf (0-2); Sodium 133 mmol/L (136-145); Total Bilirubin 0.2 mg/dL (0.15-1.2); Total Protein 5.7 g/dL (6.6-8.7)
[2022-03-21 20:19] LABS: Add Urine Culture? No; Bacteria Urine 1+ /hpf; Mucus Urine 2+ /hpf; Squamous Epithelial Cell Urine 15-25 /hpf (0-5)
--- NOTE | 2022-03-21 20:20 | PM.OPHPUD ---
Labor & Delivery H&P Update Date of Procedure: March 21, 2022 Date H&P Performed: 03/21/22 H&P update information: I have reviewed H&P completed within last 30 days, I have examined patient prior to procedure and No changes to prior documentation Admission Diagnosis: Preop diagnosis: Term , EDC 09/06/19
[2022-03-21 20:51] LABS: Urine Creatinine 188 mg/dL (28-217)
[2022-03-21 21:02] LABS: UPRO/UCREAT Ratio 0.14 mg/mg CR; Urine Protein Random 26 mg/dL
[2022-03-21] MEDS: dextrose 5%-lactated ringers 1,000 ML 125 ML IV (21:19)
[2022-03-21] MEDS: miSOPROStol 100 mcg tablet 25 MCG VAGINAL (21:20)
[2022-03-22] VITALS (54 sets, daily range): BP systolic 105–136; BP diastolic 52–93; PULSE 60–157; RESP 16; TEMP 36.6–37; O2SAT 98–99
[2022-03-22] MEDS: miSOPROStol 100 mcg tablet 25 MCG VAGINAL ×2 (01:17→05:22)
--- NOTE | 2022-03-22 08:21 | PM.PN ---
Subjective Subjective: Ms. Cabral is a 21 year old established patient with LMP of 07/01/2021 and GEMA of 04/07/2022 based on LMP and consistent with 6 week sonogram placing her at 37-4/7 weeks gestation. Vitals/I&O/Wt Last Vital Signs Temp 98.6 F 03/22/22 03:10 Pulse 84 03/22/22 07:30 Resp 16 03/22/22 03:10 BP 108/58 03/22/22 07:30 O2 Del Method 03/21/22 16:10 03/21/22 03/22/22 03/22/22 22:59 06:59 14:59 Intake Total 85.417 / 85.417 814.583 / 900.000 Balance 85.417 / 85.417 814.583 / 900.000 Weight last 48 hrs Weight 97.522 kg Physical Exam Narrative: GA: Alert and oriented ?3. Lungs: Clear to auscultation bilaterally. Heart: Regular rhythm and rate. Abdomen: Gravid, full the height equals dates, nontender. INSPECTOR ASSEMBLY: SVE; dilation: 4--5 cm, effacement: %, station: 25, presentation: Cephalic, membranes: Intact. Extremities: no edema, no cyanosis, no calves pain. heart tracing: Basal rate: 140's bpm, Variability: moderate, Accelerations: present, Decelerations: absent, Contraction: Regular. Data : 03/24/22 11:35 03/24/22 11:35 A&P Assessment and plan (1) Term : Ms. Cabral is a 21 year old established patient with LMP of 07/01/2021 and GEMA of 04/07/2022 based on LMP and consistent with 6 week sonogram placing her at 37-4/7 weeks gestation. Admitted for induction. OB ultrasound suggestive of abdominal edema. The patient had previously been seen in triage with a complaining of no movement have been an observation. Follow-up biophysical profile was 02/18. Patient was counseled regarding induction. Misoprostol was given for cervical ripening x3. heart tracing category 1. We will plan to start with oxytocin augmentation. Status: Resolved (2) History of pre-eclampsia in prior , currently in first trimester: Status: Inactive Attestations Medical Necessity Statement*: In my professional opinion per admitting diagnosis Coding Level of Care Code Acute Travel Sales Consultant for Chg Fwd Diagnoses Term Z34.90 History of pre-eclampsia in prior , currently in first trimester O09.291
[2022-03-22] MEDS: oxytocin 30 UNIT/500 ML BAG IV (09:42)
[2022-03-22] MEDS: dextrose 5%-lactated ringers 1,000 ML 125 ML IV ×2 (10:45→20:59)
[2022-03-22] MEDS: lactated ringers 1,000 ML 999 ML IV ×2 (18:45→19:30)
--- NOTE | 2022-03-22 19:00 | P.PN_ITS ---
GLASS RIBBON MACHINE OPERATOR ASSISTANT Subjective Subjective: Interval history: Delfina is a 21-year-old 001 with an IUP 37W5D dated by LMP dated by LMP and 6-week sonogram. History of term nearly 3 years ago. This gestation is complicated by obesity class I, glucose intolerance, and newly diagnosed anasarca in the female fetus. She was admitted yesterday for induction of labor secondary to the anasarca. Delfina's partner is Anastacio who is present today. This will be his first child. The couple is expecting a girl, Patricia. The daughter at home is Trang. Hospital Course Since arrival she is received multiple doses of vaginal Misoprostol followed by infusion of Pitocin. Pitocin is currently infusing at 18 milliunits/min. Delfina has not required any pain management thus far. Labor: Pain Control: tolerating well Dilation (cm): 5 (AROM with return of clear fluid) Effacement (%): 50 Station: -1 Amniotic Membrane Status: Ruptured Monitor Mode: External Contraction Frequency: 5 (Every 4 to 5 minutes) Contraction Pattern: Regular Status: Category I Vitals/I&O/Wt Last Vital Signs Temp 98.3 F 03/22/22 16:30 Pulse 68 03/22/22 21:04 Resp 16 03/22/22 19:30 BP 119/60 03/22/22 21:04 Pulse Ox 99 03/22/22 20:35 O2 Del Method 03/21/22 16:10 03/22/22 03/22/22 03/22/22 06:59 14:59 22:59 Intake Total 814.583 / 900.000 134.80 / 134.80 1053.00 / 1187.80 Balance 814.583 / 900.000 134.80 / 134.80 1053.00 / 1187.80 Weight last 48 hrs Weight 215 lb Physical Exam Const: COMMON NORMALS: no acute distress, patient oriented x3, healthy appearing, alert and well nourished HENMT: COMMON NORMALS: normocephalic and atraumatic HEAD & SCALP: no rmocephalic and atraumatic TEETH & GINGIVA: Yes fair dentition : COMMON NORMALS: Yes no CVA tenderness, Yes normal external appearance and Yes normal appearance of the vagina BLADDER/KIDNEY EXAM: Yes no CVA tenderness MANUAL OB EXAM: not dilated, effaced and station OTHER: SVE: Separate stretchy 5 cm /50%/-1 --> SROM ~ 1837 clear fluid Back/Pelvis: COMMON NORMALS: no CVA tenderness Extremity: GENERAL: Yes normal exam except as noted and Yes edema Neuro: COMMON NORMALS: patient oriented x3 SENSORIUM/ORIENTATION: Yes alert Psych: COMMON NORMALS: mental status grossly normal, Normal thought process present, cooperative, normal affect, speech normal and activity/motor behavior normal SPEECH: Yes normal speech THOUGHT PROCESS: Normal thought process present Data : 03/21/22 17:08 03/21/22 19:22 A&P Assessment and plan (1) Rupture of membranes with clear amniotic fluid: Status: Acute (2) at 37 weeks gestation or greater with abnormal testing: * Proceed with induction of labor including titration of Pitocin * Now feeling pain and requests pain management so Fentanyl now while preparing for epidural * Category 1 heart tone tracing and anticipate with network mgr pre sent Status: Acute (3) Obesity affecting : Status: Acute (4) Supervision of other high-risk : Status: Acute (5) Term : Status: Acute (6) -induced glucose intolerance: Status: Acute Attestations Medical Necessity Statement*: IUP 37W5D, anomaly, IOL, management of labor, delivery of baby Coding Level of Care Code Acute Rod Mill Tender for Chg Fwd Exam Detailed Diagnoses Rupture of membranes with clear amniotic fluid at 37 weeks gestation or greater with abnormal testing Obesity affecting O99.210 Supervision of other high-risk O09.899 Term Z34.90 -induced glucose intolerance O99.810
[2022-03-22] MEDS: fentaNYL 50 mcg/mL INJ 2mL IVP (19:30)
--- NOTE | 2022-03-22 20:24 | P.ANESASSM_ITS ---
Pre-Anesthetic Assessment Height/Weight: Height 1.63 m Weight 97.522 kg Temp Pulse Resp BP Pulse Ox O2 Del Method 98.3 F 86 16 115/59 98 03/22/22 16:30 03/22/22 20:22 03/22/22 19:30 03/22/22 20:22 03/22/22 20:20 03/21/22 16:10 Preop Diagnosis: Term , EDC 09/06/19 Labor Epidural Familial anesthetic complications: None Last intake: 1630- clears Social No alcohol and No tobacco Exam alert, oriented x 3 and clear to auscultation bilaterally Airway Submandibular: within normal limits Cervical ROM: within normal limits Mallampati: Class II Dentition: full History/ROS No significant history except as noted Pulmonary None reported CV/HEM None reported None reported Hepatic None reported GI None reported Metabolic Morbid Obesity and None reported Musc/skel None reported Neuropsych None reported Anesthetic Plan ASA status: 2 Anesthesia: Regional (specify below) Other: Labor Epidural Medications/Allergies Home Medications Medication Instructions Recorded Confirmed Last Taken Type acetaminophen 325 mg capsule 325 mg PO QID PRN Pain 11/05/21 03/21/22 03/21/22 History (Tylenol) PNV 153-FA 400 mcg-om3 35 mg-dha 1 tab PO DAILY 02/25/22 03/21/22 03/21/22 History 25 mg-epa 5 mg-fish oil chew tablet ( Gummies) aspirin 325 mg tablet 325 mg PO DAILY 02/25/22 03/21/22 03/21/22 History ferrous sulfate 325 mg (65 mg 325 mg PO BID 02/25/22 03/21/22 03/21/22 History iron) tablet Allergies Allergy/AdvReac Type Severity Reaction Status Date / Time adhesive tape Allergy burning Verified 03/21/22 09:40 skin, rash flare up Current Medications Generic Name Dose Route Start Last Admin Trade Name Freq PRN Reason Stop Dose Admin Fentanyl 25 - 100 mcg 03/21/22 17:45 03/22/22 19:30 Fentanyl 50 Mcg/Ml Inj 2ml IVP 100 mcg Q1H PRN Administration SEVERE PAIN Lactated Ringer's 1,000 mls @ 999 mls/hr 03/21/22 17:45 03/22/22 18:45 Lactated Ringers IV 999 mls/hr .Q1H1M PRN Administration BLEEDING Dextrose/Lactated Ringer's 1,000 mls @ 125 mls/hr 03/21/22 17:45 03/22/22 18:45 Dextrose 5%-Lactated Ringers IV Infused .Q8H GOOD Infusion Oxytocin 30 unit in 500 mls @ 1 mls/hr 03/22/22 09:15 03/22/22 17:36 Pitocin IV 18 milliunit/min .Q24H GOOD 18 mls/hr Titration Protocol 1 MILLIUNIT/MIN Ropivacaine 200 mg in 100 mls @ 13 mls/hr 03/22/22 19:00 03/22/22 20:19 Naropin Premix EPIDURAL 13 mls/hr .Q7H42M GOOD Administration PFSH Anesthesia Medical History Hand pain Hyperprolactinemia Pelvic pain Surgical History No history of previous surgery S/P breast biopsy Benign cyst Family History Father Seizures Hypertension Stroke Mother No problems noted. Grandmother Hypertension paternal Grandfather Hypertension paternal Diabetes paternal Family/Other Diabetes paternal uncle Stomach cancer maternal aunt Denies family history of Colon cancer Ovarian cancer Heart disease Hypercholesteremia Breast cancer Uterine cancer Thyroid disease Social History Smoking and tobacco status: never smoked Female Reproductive History : 2 Data Anesthesia : 03/21/22 17:08 03/21/22 19:22 Short CBC 03/21/22 Range/Units 17:08 WBC 10.9 (4.5-13.0) 10^3/uL Hgb 9.8 L (11.5-15.3) g/dL Hct 32.4 L (37.0-47.0) % MCV 81.2 (81-99) fl Plt Count 205 (130-400) 10^3/cmm Neut % (Auto) 70.1 % Neut # (Auto) 7.65 (1.8-8.0) 10^3/uL BMP 03/21/22 19:22 Sodium 133 L Potassium 4.3 Chloride 101 Carbon Dioxide 19 L BUN 8 Creatinine 0.5 Glucose 67 Calcium 8.5 Liver Function 03/21/22 Range/Units 19:22 Total Bilirubin 0.2 (0.15-1.2) mg/dL AST 13 (0-32) U/L ALT 9 (0-33) U/L Alkaline Phosphatase 97 (35-105) U/L Albumin 3.2 L (3.5-5.2) g/dL Urine 03/21/22 Range/Units 19:22 Urine Color Yellow (Yellow) Urine Appearance Clear (CLEAR) Urine pH 6 (5-7) Ur Specific [place] 1.020 (1.005-1.030) Urine Protein Neg (Negative) Urine Glucose (UA) Norm (Normal) Urine Ketones 1+ H (Negative) Urine Nitrate Negative (Negative) Urine Bilirubin Neg (Negative) Ur Leukocyte Esterase Trace H (Negative) Urine RBC Too numerous to cnt H (0-2) /hpf Urine WBC 5-10 H (0-5) /hpf Cardiac Studies: No Data to Display Anesthesia Procedures Epidural Time Out Performed: Yes Consent: from patient, risks and benefits reviewed and patient agrees to proceed Lumbar Level: L3-L4 Epidural position: sitting Epidural procedure: sterile prep of area, 1% lidocaine to numb the area, ne gative for paresthesia passed, test dose given, 1.5% xylocaine 1:200k epi, placed PCEA, no systemic response, sterile dressing applied, L.U.D. no apparent complications and 0.2% Ropiavacaine @ mls/hr (13) Additional Comments: CELESTE at 7.5 cm catheter threaded to 15 cm VSS 100 mcg Fentanyl given via epidural with remainder of lidocaine.
--- NOTE | 2022-03-22 20:45 | PC.NURSE ---
This nurse recieved orders from Dr. Lamb at 1910 on 03/22/2022 to give 100mcg of fentanyl to this patient, I also received orders from from Adonis to half the pitocin during the epidural so this nurse turned the pitocin down to 9 at 1955.
[2022-03-22] MEDS: ondansetron 2 mg/ML SDV 2 mL 4 MG IVP (20:57)
--- NOTE | 2022-03-22 23:00 | PM.OBGYPN ---
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 History of term nearly 3 years ago. This gestation is complicated by obesity class I, glucose intolerance, and newly diagnosed anasarca in the female fetus. She was admitted yesterday for induction of labor secondary to the anasarca. Delfina's partner is Anastacio who is present today. This will be his first child. The couple is expecting a girl, Patricia. The daughter at home is Trang. Endorses continued loss of fluid, endorses scant vaginal bleeding, denies headache, denies right upper quadrant pain, denies visual changes. Endorses increasing pressure and denies pain. Hospital Course Since arrival she is received multiple doses of vaginal Misoprostol followed by infusion of Pitocin. Pitocin is c infusing. Epidural was placed without incident at which time the Pitocin infusion rate was halved. Labor: Dilation (cm): 5 Effacement (%): 50 Station: 0 Amniotic Membrane Status: Ruptured Monitor Mode: External Contraction Frequency: 5 (Every 4 to 5 minutes) Contraction Pattern: Regular Status: Category I Vitals/I&O/Wt Last Vital Signs Temp 98.3 F 03/22/22 16:30 Pulse 146 H 03/22/22 22:49 Resp 16 03/22/22 19:30 BP 112/61 03/22/22 22:49 Pulse Ox 99 03/22/22 20:35 O2 Del Method 03/21/22 16:10 03/22/22 03/22/22 03/23/22 14:59 22:59 06:59 Intake Total 134.80 / 134.80 1053.00 / 1187.80 Balance 134.80 / 134.80 1053.00 / 1187.80 Weight last 48 hrs Weight 215 lb Physical Exam Narrative: Endorses continued loss of fluid, endorses scant vaginal bleeding, denies headache, denies right upper quadrant pain, denies visual changes. Endorses increasing pressure and denies pain Const: COMMON NORMALS: patient oriented x3 : SPECULUM EXAM - CERVIX: Yes Cervical os open OB/EXTERNAL & SPECULUM: external exam normal, Active bleeding present, Cervical os open and other (SVE: Anterior lip/completely effaced/+1 station/anterior); no herpetic lesions, no vulvar erythema and no vulvar tenderness Extremity: NARRATIVE EXTREMITY EXAM: +3 pitting edema Neuro: COMMON NORMALS: patient oriented x3 and moves all extremities Urinary Catheter Management: Fonseca: Cath Placed During This Visit: yes Urinary Catheter Date of Insertion: 03/22/22 Urinary Catheter Time of Insertion: 21:50 Data : 03/21/22 17:08 03/21/22 19:22 A&P Assessment and plan (1) Term : Status: Acute (2) Obesity affecting : Status: Acute (3) Supervision of other high-risk : Status: Acute (4) Rupture of membranes with clear amniotic fluid: Continue titration of Pitocin. Continue titration of epidural. Category 2 tracing and anticipate with commercial fisher present. Status: Acute Attestations Medical Necessity Statement*: IUP 37W5D, anomaly, induction of labor, management of labor Coding Level of Care Code Acute Computer Information Science Professor for Chg Fwd Diagnoses Term Z34.90 Obesity affecting O99.210 Supervision of other high-risk O09.899 Rupture of membranes with clear amniotic fluid
[2022-03-23] VITALS (11 sets, daily range): BP systolic 102–147; BP diastolic 53–85; PULSE 70–94; RESP 16–18; TEMP 36.6–36.8; O2SAT 98–99
--- NOTE | 2022-03-23 00:40 | P.PCNOB_ITS ---
Delivery Note: Date of delivery: March 23, 2022 Pre-delivery diagnoses: * IUP 37W5D * 001 * Suspected anasarca/hydrops * Glucose intolerance Post-delivery diagnoses: * IUP 37W5D * 001 * Viable female with normal-appearing anatomy * Glucose intolerance Procedure: Term normal spontaneous delivery (). Delivering Physician: Julee Lamb MD, FACOG Estimated blood loss (mL): 200 Findings: Intact perineum with no perennial nor vaginal lacerations. Viable female infant, Patricia Taylor, with normal anatomy. * scores: 7 at one minute and 8 at five minutes. * weight: 8 lbs 5oz (3770 g) * Delivery time: 03/22/2022 at 2353 Pre-Delivery Course: Delfina is a 21-year-old now 002 who was admitted yesterday for induction of labor at term secondary to suspected anomaly. Gestation was complicated by maternal obesity and glucose intolerance. Specif ically, yesterday's ultrasound revealed increased abdominal girth thought to be anasarca/hydrops. She had history of having 1 term delivery without complications. GBS negative. After she was admitted she received several doses of Misoprostol, infusion of Pitocin, AROM (03/22/2022 @1837), and epidural without incident. Labor progressed normally. Delivery: Upon complete dilation, +3 station and medicine experiencing extreme pelvic pressure she was placed in modified Jatin position. She was instructed on pushing she pushed very effectively. With coaching the patient pushed about the 's head to the perineum. The perineum appeared adequate. The patient pushed again and the head crowns in the slight asynclitic KRISTINE position. Nuchal cord x1 was appreciated and it was loose enough to reduce. The anterior shoulder was delivered with a downward motion, the posterior shoulder delivered with an upward motion, and the remainder of the 's body delivered without any difficulty. cried spontaneously and was placed on the mother's abdomen and resuscitated by the attending manager heart. Delayed cord clamping was performed. Cord gases were collected as well as cord blood. Pitocin was administered and the placenta delivered spontaneously and was found to be intact with a centrally inserted three-vessel cord. Delfina delivered her second daughter, Patricia Taylor, who is anticipated to exclusively breast-feed. Viable female infant appeared to have normal anatomy. scores were 7 at one minute and 8 at five minutes. weight: 8 lbs 5oz (3770 g) Delivery time: 03/22/2022 at 2353 Post-Delivery Status: Remains with Delfina and partner, Anastacio. , Patricia Taylor, is to breast. Family appears to be bonding well. History History History 2 Term 1 0 Miscarriages/Ectopic 0 Living Children 1 Past Pregnancies Del. Date GA/Weeks Outcome Route Wt Inf Gender Labor Lgth Comp. Anesth esia Location 08/24/19 38 live - full term Vaginal 7 lb 15 oz Female [place], [place]-Dr. Avina A&P Assessment and plan (1) Normal spontaneous vaginal delivery: Status: Acute (2) care and examination immediately after delivery: Status: Acute Plan * Routine care * Breast-feeding * Anticipate discharge on day #2, 03/24/2022 Coding Level of Care Code Acute Chicle Grinder Feeder for Chg Fwd Diagnoses Normal spontaneous vaginal delivery O80 care and examination immediately after delivery Z39.0
--- NOTE | 2022-03-23 10:41 | ANE.PACU2 ---
Inpatient post-anesthesia follow up: Airway intact: Yes Vital signs: Temperature 98.3 F Pulse Rate 94 Respiratory Rate 17 Blood Pressure 147/81 Pulse Oximetry 99 Oxygen Delivery Me thod Room Air Oxygen Flow Rate Fraction of Inspir ed Oxygen Hydration adequate: Yes Nausea and vomiting: No Pain level: 2 Mental status: Baseline
[2022-03-23] MEDS: prenatal vitamin Capsule 1 CAP PO (11:23)
[2022-03-23] MEDS: docusate sodium 100 mg Capsule PO (11:23)
[2022-03-23] MEDS: ibuprofen 800 mg tablet PO ×2 (11:23→18:29)
[2022-03-23 11:54] LABS: Hemoglobin 8.6 g/dL (11.5-15.3); Mean Corpuscular HGB Conc 29.7 g/dL (30.0-36.0); Mean Corpuscular Hemoglobin 24.3 pg (28.0-34.0); Mean Corpuscular Volume 81.9 fl (81-99); Mean Platelet Volume 13.9 fL (7.4-10.4); Platelet Count 177 10^3/cmm (130-400); Red Blood Count 3.54 10^6/uL (4.1-5.3); Red Cell Distribution Width 17.2 % (12.1-15.1); White Blood Count 11.8 10^3/uL (4.5-13.0)
--- NOTE | 2022-03-23 14:25 | P.PN_ITS ---
Subjective Subjective: Hospital Course:?? Delfina is a 21-ye ar-old now 0 02 who was admitte d 03/22/2022 for ind uction of labor at term secondary to suspected a nomaly.? Gestation was complicated b y maternal obesity and glucose intol erance.? Specifica lly, pre-admit ult rasound revealed i ncreased abdominal girth thought to be anasarca/hydrop s.? She had histor y of having 1 term delivery without complications.? GB S negative. After she was admitted she received sever al doses of Misopr ostol, infusion of Pitocin, AROM (03/22/2022 @1837), and epidural without incident.? Labor p rogressed normally and resulted in N without compli cations. Patricia Taylor is not raising he r right arm otherw issimba is doing well and is breastfeedi ng. There was NO s houlder dystocia a lbeit there was a nuchal cord which was loose and easi ly reduced at the time of labor. Norma Taylor was imaged this morning. Vi able female infant ,?Patricia Taylor, with n ormal anatomy. * AP GAR scores:?7 at o ne minute and 8 at five minutes. * Fe ashli weight:?8 lbs 5oz (3770 g) * Deli very time:? 2 at 2353 Madiso n is PPD #1. Repo rts light vaginal bleeding/lochia, e ndorses mild urine cramping with monica ast-feeding, ambul ating without diff iculty, voiding wi thout difficulty, tolerating p.o. in take, and denies e motional concerns. Vitals/I&O/Wt Last Vital Signs Temp 98.0 F 03/23/22 11:30 Pulse 81 03/23/22 11:30 Resp 18 03/23/22 11:30 BP 132/85 03/23/22 11:30 Pulse Ox 98 03/23/22 11:30 O2 Del Method 03/23/22 11:30 03/22/22 03/23/22 03/23/22 22:59 06:59 14:59 Intake Total 1053.00 / 1187.80 Output Total 1000 / 1000 Balance 1053.00 / 1187.80 -1000 / 187.80 Weight last 48 hrs Weight 215 lb Physical Exam Const: COMMON NORMALS: no acute distress, patient oriented x3, healthy appearing (Albeit has the appearance consistent with class I obesity) and alert Resp: COMMON NORMALS: normal respiratory effort Cardio: COMMON NORMALS: regular rate and regular rhythm RATE: regular rate RHYTHM: regular rhythm : UTERUS PALPATION: No Uterus tender and Yes Other OB uterine findings (Firm fundus at the umbilicus) Extremity: OTHER: 2+ lower extremity pitting edema bilaterally; no signs of DVT Neuro: COMMON NORMALS: patient oriented x3 SENSORIUM/ORIENTATION: Yes alert Psych: COMMON NORMALS: mental status grossly normal, Normal thought process present, cooperative, normal affect, speech normal and activity/motor behavior normal SPEECH: Yes normal speech THOUGHT PROCESS: Normal thought process present Skin: COMMON NORMALS: no rashes or lesions noted, no wounds and turgor normal GENERAL SKIN EXAM: no rashes or lesions noted and turgor normal Urinary Catheter Management: Fonseca: Cath Placed During This Visit: yes, but has since been removed by the nurse Reason for Continuing Indwelling Catheter: Decision to DC Catheter Urinary Catheter Date of Insertion: 03/22/22 Urinary Catheter Time of Insertion: 21:50 Date Urinary Catheter Removed: 03/22/22 Time Urinary Catheter Discontinued: 23:44 Data : 03/23/22 11:40 03/21/22 19:22 Other Labs: Laboratory Tests 03/18/22 03/21/22 03/23/22 18:43 17:08 11:40 Hgb 9.6 L 9.8 L 8.6L Hct 32.0 L 32.4 L 29.0 L Plt Count 199 205 177 Micro: Microbiology 08/24/19 12:44 Gram Stain - Final Placenta A&P Assessment and plan (1) care and examination immediately after delivery: * Continue care. * Anticipate discharge on day #2 Status: Acute (2) Normal spontaneous vaginal delivery: * Continue breast-feeding. Status: Acute (3) Acute on chronic anemia: * IV iron, Venofer prior to discharge. Status: Acute Attestations Medical Necessity Statement*: care, acute on chronic anemia Coding Level of Care Code Acute Occupational Therapy Asst for [facility] Fwd Exam Detailed Diagnoses care and examination immediately after delivery Z39.0 Normal spontaneous vaginal delivery O80 Acute on chronic anemia D64.9
[2022-03-23] MEDS: iron sucrose 200 MG in sodium chloride 0.9% (100 ml) 100 ML 220 MG IV (17:29)
[2022-03-23] MEDS: lanolin oint 7 gm 1 APPLIC TOPICAL (21:22)
[2022-03-24 04:40] VITALS: BP 106/53; PULSE 72; RESP 14; TEMP 36.6
--- NOTE | 2022-03-24 09:01 | P.DS_ITS ---
Discharge Providers Date of Admission: 03/21/22 16:37 Date of Discharge: March 24, 2022 Attending Provider at Admission: Adryan Lopez MD Primary Care Provider: ALLIE Orozco Diagnoses at Discharge Discharge Diagnosis (1) care and examination immediately after delivery: Details from hospital stay: HOSPITAL COURSE Delfina is a 21-year-old now 002 PPD #2 who was admitted for induction of labor at term secondary to suspected anomaly.? Gestation was complicated by maternal obesity, anemia and glucose intolerance.? Specifically, ultrasound revealed increased abdominal girth thought to be anasarca/hydrops.? She had history of having 1 term delivery without complications.? GBS negative. Since admit had an uncomplicated induction of labor for recent significant above.? This is day #2 status post in the treatment of anemia.? Delfina had infusion of IV iron on post day #1 and day #2. Delfina reports light vaginal bleeding/lochia, endorses mild uterine cramping with breast-feeding, ambulating without dizziness, voiding without difficulty or pain, tolerating p.o. intake, and denies emotional concerns.? Requests discharge to home. Date of delivery:March 23, 2022 Intact perineum with no perennial nor vaginal lacerations. Viable female infant,?Patricia Taylor, with normal anatomy albeit will remain hospitalized for physical therapy associated with right arm. Patricia Taylor is not raising her right arm otherwise is doing well and is breastfeed- ing. There was NO shoulder dystocia albeit there was a nuchal cord which was loose and easily reduced at the time of delivery.? Patricia Taylor was imaged on PPD #1. * scores:?7 at one minute and 8 at five minutes. * weight:?8 lbs 5oz (3770 g) * Delivery time:?03/22/2022 at 2353 ? Vitals/I&O/Wt Last Vital Signs Temp ?98.0 F ?03/23/22 11:30 Pulse ?81 ?03/23/22 11:30 Resp ?18 ?03/23/22 11:30 BP ?132/85 ?03/23/22 11:30 Pulse Ox ?98 ?03/23/22 11:30 O2 Del Method ? ?03/23/22 11:30 ? 03/22/22 03/23/22 03/23/22 ? 22:59 06:59 14:59 Intake Total 1053.00 / 1187.80 ? ? Output Total ? 1000 / 1000 ? Balance 1053.00 / 1187.80 -1000 / 187.80 ? Weight last 48 hrs Weight? 215 lb? Physical Exam Const:?? COMMON NORMALS: no acute distress, patient oriented x3, healthy appearing (Albeit has the appearance consistent with class I obesity) and alert Resp:?? COMMON NORMALS: normal respiratory effort Cardio:?? COMMON NORMALS: regular rate and regular rhythm? RATE: regular rate? RHYTHM: regular rhythm :?? UTERUS PALPATION: No Uterus tender and Yes Other OB uterine findings (Firm fundus at the umbilicus) Extremity:?? OTHER: 2+ lower extremity pitting edema bilater ally; no signs of DVT Neuro:?? COMMON NORMALS: patient oriented x3? SENSORIUM/ORIENTATION: Yes alert Psych:?? COMMON NORMALS: mental status grossly normal, Normal thought process present, cooperative, normal affect, speech normal and activity/motor behavior normal? SPEECH: Yes normal speech? THOUGHT PROCESS: Normal thought process present Skin:?? COMMON NORMALS: no rashes or lesions noted, no wounds and turgor normal? GENERAL SKIN EXAM: no rashes or lesions noted and turgor normal Urinary Catheter Management:?? Fonseca: Cath Placed During This Visit: yes, but has since been removed by the nurse Reason for Continuing Indwelling Catheter: Decision to DC Catheter Urinary Catheter Date of Insertion: 03/22/22 Urinary Catheter Time of Insertion: 21:50 Date Urinary Catheter Removed: 03/22/22 Time Urinary Catheter Discontinued: 23:44 Status: Acute (2) Normal spontaneous vaginal delivery: Status: Acute (3) Acute on chronic anemia: Status: Acute Reason for Visit Reason for Visit: Induction Physical Exam Const: COMMON NORMALS: no acute distress, patient oriented x3, no limitations and alert HENMT: COMMON NORMALS: normocephalic and atraumatic HEAD & SCALP: normocephalic and atraumatic Chest: COMMONS NORMALS: normal inspection of the chest and normal inspection of the breasts Resp: COMMON NORMALS: normal respiratory effort and No retractions Cardio: COMMON NORMALS: regular rate and regular rhythm RATE: regular rate RHYTHM: regular rhythm GI: COMMON NORMALS: Soft to palpation and non-tender PALPATION: Yes Soft to palpation : COMMON NORMALS: Yes no CVA tenderness BLADDER/KIDNEY EXAM: Yes no CVA tenderness MANUAL OB EXAM: other (Firm fundus 1 fingerbreadth beneath the umbilicus) Back/Pelvis: COMMON NORMALS: no CVA tenderness Neuro: COMMON NORMALS: patient oriented x3 SENSORIUM/ORIENTATION: Yes alert Psych: COMMON NORMALS: mental status grossly normal, Normal thought process present, cooperative, normal affect, speech normal and activity/motor behavior normal SPEECH: Yes normal speech THOUGHT PROCESS: Normal thought process present Skin: COMMON NORMALS: no rashes or lesions noted and turgor normal GENERAL SKIN EXAM: no rashes or lesions noted and turgor normal Urinary Catheter Management: Fonseca: Cath Placed During This Visit: yes, but has since been removed by the nurse Reason for Continuing Indwelling Catheter: Decision to DC Catheter Urinary Catheter Date of Insertion: 03/22/22 Urinary Catheter Time of Insertion: 21:50 Date Urinary Catheter Removed: 03/22/22 Time Urinary Catheter Discontinued: 23:44 Discharge Data Studies Completed and Pending Laboratory Results WBC 11.8 10^3/uL (4.5-13.0) 03/23/22 11:40 RBC 3.54 10^6/uL (4.1-5.3) L 03/23/22 11:40 Hgb 8.6 g/dL (11.5-15.3) L 03/23/22 11:40 Hct 29.0 % (37.0-47.0) L 03/23/22 11:40 MCV 81.9 fl (81-99) 03/23/22 11:40 MCH 24.3 pg (28.0-34.0) L 03/23/22 11:40 MCHC 29.7 g/dL (30.0-36.0) L 03/23/22 11:40 RDW 17.2 % (12.1-15.1) H 03/23/22 11:40 Plt Count 177 10^3/cmm (130-400) 03/23/22 11:40 MPV 13.9 fL (7.4-10.4) H 03/23/22 11:40 Neut % (Auto) 70.1 % 03/21/22 17:08 Lymph % (Auto) 16.8 % 03/21/22 17:08 [place] % (Auto) 7.1 % 03/21/22 17:08 Eos % (Auto) 1.1 % 03/21/22 17:08 Baso % (Auto) 0.5 % 03/21/22 17:08 Neut # (Auto) 7.65 10^3/uL (1.8-8.0) 03/21/22 17:08 Lymph # (Auto) 1.8 10^3/uL (1.5-6.5) 03/21/22 17:08 [place] # (Auto) 0.8 10^3/uL (0.2-0.9) 03/21/22 17:08 Eos # (Auto) 0.1 10^3/uL (0.0-0.8) 03/21/22 17:08 Baso # (Auto) 0.1 10^3/uL (0.0-0.1) 03/21/22 17:08 Nucleated RBC % (auto) 0.4 % 03/21/22 17:08 Nucleated RBCs # 0.0 /100WBC 03/21/22 17:08 Sodium 133 mmol/L (136-145) L 03/21/22 19:22 Potassium 4.3 mmol/L (3.5-5.1) 03/21/22 19:22 Chloride 101 mmol/L (98-107) 03/21/22 19:22 Carbon Dioxide 19 mmol/L (22-29) L 03/21/22 19:22 Anion Gap 17.3 (5-19) 03/21/22 19:22 BUN 8 mg/dL (6-20) 03/21/22 19:22 Creatinine 0.5 mg/dL (0.5-0.9) 03/21/22 19:22 GFR Calculation 157.3 mL/min (90-130) H 03/21/22 19:22 Glucose 67 mg/dL (65-115) 03/21/22 19:22 Calculated Osmolality 273 mOsm/kg (285-295) L 03/21/22 19:22 Uric Acid 5.0 mg/dL (2.4-5.7) 03/21/22 19:22 Calcium 8.5 mg/dL (8.5-10.5) 03/21/22 19:22 Total Bilirubin 0.2 mg/dL (0.15-1.2) 03/21/22 19:22 AST 13 U/L (0-32) 03/21/22 19:22 ALT 9 U/L (0-33) 03/21/22 19:22 Alkaline Phosphatase 97 U/L (35-105) 03/21/22 19:22 Total Protein 5.7 g/dL (6.6-8.7) L 03/21/22 19: Albumin 3.2 g/dL (3.5-5.2) L 03/21/22 19: Globulin 2.5 g/dL (1.3-4.6) 03/21/22 19: Urine Color Yellow (Yellow) 03/21/22 19: Urine Appearance Clear (CLEAR) 03/21/22 19:22 Urine pH 6 (5-7) 03/21/22 19:22 Ur Specific Leonard 1.020 (1.005-1.030) 03/21/22 19:22 Urine Protein Neg (Negative) 03/21/22 19:22 Urine Glucose (UA) Norm (Normal) 03/21/22 19:22 Urine Ketones 1+ (Negative) H 03/21/22 19: Urine Blood 3+ (Negative) H 03/21/22 19: Urine Nitrate Negative (Negative) 03/21/22 19: Urine Bilirubin Neg (Negative) 03/21/22 19:22 Urine Urobilinogen Norm mg/dL (Negative) 03/21/22 19: Ur Leukocyte Esterase Trace (Negative) H 03/21/22 19:22 Urine RBC Too numerous to cnt /hpf (0-2) H 03/21/22 19:22 Urine WBC 5-10 /hpf (0-5) H 03/21/22 19:22 Ur Squamous Epith Cells 15-25 /hpf (0-5) H 03/21/22 19:22 Amorphous Sediment Not Reportable 03/21/22 19:22 Urine Bacteria 1+ /hpf (NONE) H 03/21/22 19:22 Urine Mucus 2+ /hpf 03/21/22 19:22 U Random Total Protein 26 mg/dL 03/21/22 19: Urine Creatinine 188 mg/dL (28-217) 03/21/22 19:22 Protein/Creatinin Ratio 0.14 mg/mg CR 03/21/22 19:22 Laboratory Tests 03/23/22 03/24/22 03/24/22 11:40 11:35 11:35 Hgb 8.6 L 8.4 L Hct 29.0 L 29.0 L Plt Count 177 160 BUN 7 Creatinine 0.6 AST 13 ALT 12 Vitals Last Vital Signs Temp 97.9 F 03/24/22 04:40 Pulse 72 03/24/22 04:40 Resp 14 03/24/22 04:40 BP 106/53 03/24/22 04:40 Pulse Ox 99 03/23/22 17:56 O2 Del Method 03/24/22 04:40 Discharge Plan Discharge Patient Disposition: Home Condition: Good Prescriptions: New ibuprofen 800 mg Tablet 800 mg PO TID 60 Days Qty: 40 1RF -U 106.5-1 mg Capsule 1 cap PO DAILY 360 Days Qty: 90 12RF Lanolin (HPA) 100 % Cream 1 applic topical PRN PRN (Reason: Dryness) 360 Days Qty: 1 11RF acetaminophen 325 mg Tablet 650 mg PO Q6H PRN (Reason: Mild pain or temp > 100.4) Qty: 60 1RF Continued ferrous sulfate 325 mg (65 mg iron) tablet 325 mg PO BID Gummies 400 mcg-35 mg- 25 mg-5 mg tablet,chewable 1 tab PO DAILY Discontinued acetaminophen [Tylenol] 325 mg capsule 325 mg PO QID PRN (Reason: Pain) aspirin 325 mg tablet 325 mg PO DAILY Discharge Orders: Discharge Order (Routine); Ordered 03/24/22 Ordered By: Julee Lamb Discharge Diet: As Directed Discharge Activity: Resume usual activity and Increase activity as tolerated Patient Instructions: Opioid Safety Activity Restrictions/Additional Instructions: Progress x6 weeks Return to clinic in 1 week for blood pressure check Preeclampsia/eclampsia precautions as well as HELLP precautions Discharge Attestations Time Spent in Discharge Care*: greater than 30 min Quality Metrics Clinical Quality Measures [ No reported AMI, CVA or VTE this stay] Coding Level of Care Code Acute Chg FW DC note Exam Comprehensive Diagnoses care and examination immediately after delivery Z39.0 Normal spontaneous vaginal delivery O80 Acute on chronic anemia D64.9
--- NOTE | 2022-03-24 09:10 | PM.PN ---
Subjective Subjective: HOSPITAL COURSE Delfina is a 21-year-old now 002 PPD #2 who was admitted for induction of labor at term secondary to suspected anomaly.? Gestation was complicated by maternal obesity, anemia and glucose intolerance.? Specifically, ultrasound revealed increased abdominal girth thought to be anasarca/hydrops.? She had history of having 1 term delivery without complications.? GBS negative. Since admit had an uncomplicated induction of labor for recent significant above. This is day #2 status post in the treatment of anemia. Delfina had infusion of IV iron on post day #1 and day #2. Delfina reports light vaginal bleeding/lochia, endorses mild uterine cramping with breast-feeding, ambulating without dizziness, voiding without difficulty or pain, tolerating p.o. intake, and denies emotional concerns. Requests discharge to home. Date of delivery:March 23, 2022 Intact perineum with no perennial nor vaginal lacerations. Viable female infant,?Patricia Taylor, with normal anatomy albeit will remain hospitalized for physical therapy associated with right arm. Patricia Taylor is not raising her right arm otherwise is doing well and is breastfeed- ing. There was NO shoulder dystocia albeit there was a nuchal cord which was loose and easily reduced at the time of delivery.? Patricia Taylor was imaged on PPD #1. scores:?7 at one minute and 8 at five minutes. weight:?8 lbs 5oz (3770 g) Delivery time:?03/22/2022 at 2353 Vitals/I&O/Wt Last Vital Signs Temp 97.9 F 03/24/22 04:40 Pulse 72 03/24/22 04:40 Resp 14 03/24/22 04:40 BP 106/53 03/24/22 04:40 Pulse Ox 99 03/23/22 17:56 O2 Del Method 03/24/22 04:40 Selected Entries 03/23/22 06:02 03/23/22 11:30 03/23/22 17:56 Blood Pressure 147/81 132/85 138/85 03/24/22 04:40 Blood Pressure 106/53 03/23/22 03/24/22 03/24/22 22:59 06:59 14:59 Intake Total 810 / 810 Balance 810 / 810 Physical Exam Const: COMMON NORMALS: no acute distress, average body habitus, patient oriented x3, no limitations, healthy appearing and alert Chest: COMMONS NORMALS: normal inspection of the chest and normal inspection of the breasts Resp: COMMON NORMALS: normal respiratory effort and No use of accessory muscles Cardio: COMMON NORMALS: regular rate and regular rhythm RATE: regular rate RHYTHM: regular rhythm GI: COMMON NORMALS: Soft to palpation and non-tender PALPATION: Yes Soft to palpation : COMMON NORMALS: Yes no CVA tenderness and Yes normal external appearance BLADDER/KIDNEY EXAM: Yes no CVA tenderness UTERUS PALPATION: No Uterus tender and Yes Other OB uterine findings (Firm fundus 1 fingerbreadth below the umbilicus) Back/Pelvis: COMMON NORMALS: no CVA tenderness Extremity: COMMON NORMALS: normal to inspection, full ROM, no clubbing, cyanosis or edema and no calf tenderness Neuro: COMMON NORMALS: patient oriented x3 SENSORIUM/ORIENTATION: Yes alert Psych: COMMON NORMALS: mental status grossly normal, Normal thought process present, cooperative, normal affect, speech normal and activity/motor behavior normal SPEECH: Yes normal speech THOUGHT PROCESS: Normal thought process present Skin: COMMON NORMALS: no rashes or lesions noted and turgor normal GENERAL SKIN EXAM: no rashes or lesions noted and turgor normal Urinary Catheter Management: Fonseac: Cath Placed During This Visit: yes, but has since been removed by the nurse Reason for Continuing Indwelling Catheter: Decision to DC Catheter Urinary Catheter Date of Insertion: 03/22/22 Urinary Catheter Time of Insertion: 21:50 Date Urinary Catheter Removed: 03/22/22 Time Urinary Catheter Discontinued: 23:44 Data : 03/23/22 11:40 03/21/22 19:22 A&P Assessment and plan (1) care and examination immediately after delivery: Contraception: 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 Activity: Pelvic rest for 6 weeks and resume normal activities as tolerated Status: Acute (2) Acute on chronic anemia: Status post IV iron infusion Increase dietary iron Status: Acute (3) Normal spontaneous vaginal delivery: Status: Acute (4) Obesity (BMI 30-39.9): Decrease simple carbohydrate intake Status: Acute (5) Elevated blood pressure reading without diagnosis of hypertension: PIH panel prior to discharge to home Status: Acute Attestations Medical Necessity Statement*: day #2, elevated blood pressure Coding Level of Care Code Acute Political Advisor for g Dimitrios Diagnoses care and examination immediately after delivery Z39.0 Acute on chronic anemia D64.9 Normal spontaneous vaginal delivery O80 Obesity (BMI 30-39.9) E66.9 Elevated blood pressure reading without diagnosis of hypertension R03.0
[2022-03-24] MEDS: ibuprofen 800 mg tablet PO ×2 (09:36→15:13)
[2022-03-24] MEDS: prenatal vitamin Capsule 1 CAP PO (09:37)
[2022-03-24] MEDS: docusate sodium 100 mg Capsule PO (09:37)
[2022-03-24] MEDS: iron sucrose 200 MG in sodium chloride 0.9% (100 ml) 100 ML 220 MG IV (09:39)
--- NOTE | 2022-03-24 10:49 | PC.NURSE ---
1045 PIID in left hand/wrist flushed without difficulty following ferrous sulfate infusion. PIID discontinued catheter tip intact. Site asymptomatic.
[2022-03-24 11:15] VITALS: BP 129/81; PULSE 77; RESP 16; TEMP 36.6; O2SAT 99
[2022-03-24 11:52] LABS: Basophils % 0.4 %; Eosinophils # 0.3 10^3/uL (0.0-0.8); Eosinophils % 2.7 %; Hemoglobin 8.4 g/dL (11.5-15.3); Lymphocytes # 2.1 10^3/uL (1.5-6.5); Lymphocytes % 20.8 %; Mean Corpuscular Hemoglobin 24.2 pg (28.0-34.0); Mean Corpuscular Volume 83.6 fl (81-99); Mean Platelet Volume 13.5 fL (7.4-10.4); Monocytes # 0.5 10^3/uL (0.2-0.9); Monocytes % 4.8 %; Neutrophils # 6.64 10^3/uL (1.8-8.0); Neutrophils % 65.8 %; Nucleated Red Blood Cells % 0.3 %; Platelet Count 160 10^3/cmm (130-400); Red Blood Count 3.47 10^6/uL (4.1-5.3); Red Cell Distribution Width 17.4 % (12.1-15.1); White Blood Count 10.1 10^3/uL (4.5-13.0)
[2022-03-24 12:09] LABS: Alanine Aminotransferase 12 U/L (0-33); Albumin Level 2.9 g/dL (3.5-5.2); Alkaline Phosphatase 72 U/L (35-105); Anion Gap 14.7 (5-19); Aspartate Amino Transferase 13 U/L (0-32); Blood Urea Nitrogen 7 mg/dL (6-20); Calcium 8.5 mg/dL (8.5-10.5); Carbon Dioxide 23 mmol/L (22-29); Chloride 110 mmol/L (98-107); Globulin 2.4 g/dL (1.3-4.6); Glomerular Filtration Rate 127.5 mL/min (90-130); Glucose 115 mg/dL (65-115); Osmolality Calculated 297 mOsm/kg (285-295); Potassium 3.7 mmol/L (3.5-5.1); Sodium 144 mmol/L (136-145); Total Bilirubin 0.2 mg/dL (0.15-1.2); Total Protein 5.3 g/dL (6.6-8.7)
[2022-03-24 18:20] VITALS: BP 128/84; PULSE 84; RESP 16; TEMP 36.7
== END 2022-03-24 18:30 | disposition home or self-care (01) | DRG 807 ==
LOC: OPOB 16:38 → OBGYN 16:40
PROVIDERS: Obstetrics & Gynecology; Admitting Provider Obstetrics & Gynecology; PCP Nurse Practitioner Family; Visit Provider Obstetrics & Gynecology
DX: O40.3XX0 Polyhydramnios, third trimester, not applicable or unspecified (principal); Z37.0 Single live birth; O13.4 Gestational [pregnancy-induced] hypertension without significant proteinuria, complicating childbirth; O99.214 Obesity complicating childbirth; O99.814 Abnormal glucose complicating childbirth; O69.2XX0 Labor and delivery complicated by other cord entanglement, with compression, not applicable or unspecified; O99.02 Anemia complicating childbirth; D64.9 Anemia, unspecified; Z3A.37 37 weeks gestation of pregnancy
CPT/HCPCS: 36415; 51702; 59025; 59409; 80053; 81000; 81001; 82570; 84156; 84550; 85025; 85027; 87086; J1756; J2405; J2795; J3010

== ENCOUNTER 2022-04-05 16:54 | Outpatient (CLI) | payer MEDICAID, SELFPAY ==
[2022-04-05 17:27] LABS: Basophils # 0.1 10^3/uL (0.0-0.1); Basophils % 1.1 %; Eosinophils # 0.4 10^3/uL (0.0-0.8); Eosinophils % 5.7 %; Hematocrit 40.3 % (37.0-47.0); Hemoglobin 12.2 g/dL (11.5-15.3); Lymphocytes # 2.6 10^3/uL (1.5-6.5); Mean Corpuscular HGB Conc 30.3 g/dL (30.0-36.0); Mean Corpuscular Hemoglobin 25.2 pg (28.0-34.0); Mean Corpuscular Volume 83.3 fl (81-99); Mean Platelet Volume 12.4 fL (7.4-10.4); Monocytes # 0.5 10^3/uL (0.2-0.9); Neutrophils # 3.91 10^3/uL (1.8-8.0); Neutrophils % 51.7 %; Nucleated Red Blood Cells % 0 %; Platelet Count 291 10^3/cmm (130-400); Red Blood Count 4.84 10^6/uL (4.1-5.3); Red Cell Distribution Width 18.6 % (12.1-15.1); White Blood Count 7.6 10^3/uL (4.5-13.0)
[2022-04-05 17:42] LABS: Ferritin 103 ng/mL (15-150)
== END 2022-04-05 16:55 | disposition home or self-care (01) ==
LOC: LAB 16:58
PROVIDERS: PCP Nurse Practitioner Family; Visit Provider Obstetrics & Gynecology
DX: D64.9 Anemia, unspecified (principal)
CPT/HCPCS: 36415; 82728; 85025

== ENCOUNTER → 2022-05-03 15:28 | Outpatient (BNVA) | payer MEDICAID, SELFPAY | PROVIDERS: PCP Nurse Practitioner Family; Visit Provider Obstetrics & Gynecology | DX: Z12.4 Encounter for screening for malignant neoplasm of cervix (principal) | CPT/HCPCS: 88175 ==

== ENCOUNTER 2022-07-21 20:17 | Emergency (ER) | payer MEDICAID, SELFPAY ==
[2022-07-21 20:40] VITALS: BP 132/87; PULSE 60; RESP 18; TEMP 36.4; O2SAT 98
--- NOTE | 2022-07-21 20:47 | ECG_ITS ---
[facility] Test Date: 2022-07-21 Pat Name: Delfina Cabral Department: Room: Gender: Female Clinical Supervisor: : 2000 Requested By: Luis Mitchell Order Number: [id number] Clifford MD: Yassine Jarrell M.D. Measurements Intervals [place] Rate: 71 P: 34 AL: 157 QRS: 22 QRSD: 110 T: 30 QT: 362 QTc: 394 Interpretive Statements SINUS RHYTHM Compared to ECG 11/22/2020 10:44:28 No significant changes Electronically Signed On 07-22-2022 20:34:22 RECORDS TECH by Yassine Jarrell M.D. [email or web address]
--- NOTE | 2022-07-21 20:47 | XRR_ITS ---
PROCEDURE INFORMATION: Exam: XR Chest Exam date and time: 07/21/2022 9:17 PM Age: 22 years old Clinical indication: Pain; Chest pressure; Additional info: Cp TECHNIQUE: Imaging protocol: Radiologic exam of the chest. Views: 1 view. COMPARISON: CR (CHEST, ) 02/11/2021 7:33 PM FINDINGS: Lungs: No consolidation. Pleural spaces: No pleural effusion. No pneumothorax. Heart/Mediastinum: No cardiomegaly. Bones/joints: Unremarkable. XR/XR chest 1V portable [id number] IMPRESSION: No acute abnormality demonstrated.
[2022-07-22 00:18] LABS: Basophils # 0.1 10^3/uL (0.0-0.1); Basophils % 0.4 %; Eosinophils # 0.4 10^3/uL (0.0-0.8); Eosinophils % 3.1 %; Hematocrit 42.5 % (37.0-47.0); Hemoglobin 13.6 g/dL (11.5-15.3); Lymphocytes % 26.2 %; Mean Corpuscular Hemoglobin 28.2 pg (28.0-34.0); Mean Corpuscular Volume 88.2 fl (81-99); Mean Platelet Volume 12.8 fL (7.4-10.4); Monocytes # 0.7 10^3/uL (0.2-0.9); Monocytes % 6.2 %; Neutrophils # 7.28 10^3/uL (1.8-7.7); Neutrophils % 63.6 %; Nucleated Red Blood Cells % 0 %; Platelet Count 212 10^3/cmm (130-400); Red Blood Count 4.82 10^6/uL (4.1-5.3); Red Cell Distribution Width 13.2 % (12.1-15.1); White Blood Count 11.5 10^3/uL (4.0-10.0)
[2022-07-22 00:46] LABS: Alanine Aminotransferase 34 U/L (0-33); Albumin Level 4.6 g/dL (3.5-5.2); Alkaline Phosphatase 82 U/L (35-105); Anion Gap 16.8 (5-19); Aspartate Amino Transferase 17 U/L (0-32); Blood Urea Nitrogen 18 mg/dL (6-20); Calcium 8.9 mg/dL (8.5-10.5); Carbon Dioxide 23 mmol/L (22-29); Chloride 105 mmol/L (98-107); Globulin 2.7 g/dL (1.3-4.6); Glomerular Filtration Rate 155.7 mL/min (90-130); Glucose 89 mg/dL (65-115); Lipase 19 U/L (13-60); Osmolality Calculated 293 mOsm/kg (285-295); Potassium 3.8 mmol/L (3.5-5.1); Sodium 141 mmol/L (136-145); Total Bilirubin 0.2 mg/dL (0.15-1.2); Total Protein 7.3 g/dL (6.6-8.7)
--- NOTE | 2022-07-22 00:46 | CTR_ITS ---
PROCEDURE INFORMATION: Exam: CT Head Without Contrast Exam date and time: 07/22/2022 12:57 AM Age: 22 years old Clinical indication: Pain; Headache not specified; Additional info: MARIE, worst headache of life, unrelenting TECHNIQUE: Imaging protocol: Computed tomography of the head without contrast. Radiation optimization: All CT scans at this facility use at least one of these dose optimization techniques: automated exposure control; mA and/or kV adjustment per patient size (includes targeted exams where dose is matched to clinical indication); or iterative reconstruction. COMPARISON: CT head wo con* [id number] 11/05/2021 10:51 AM RADIATION DOSE METRICS: Total DLP (mGy-cm): 1140.48 FINDINGS: Brain: No acute intracranial hemorrhage or mass effect. No definite acute infarct by CT. Cerebral ventricles: Ventricle size is normal for age. Paranasal sinuses: Minimal mucosal thickening in the right ethmoid sinus. Included paranasal sinuses otherwise appear essentially clear. Mastoid air cells: No significant acute finding. Bones/joints: No definite acute skull fracture. Soft tissues: No significant acute finding. CT/CT head wo con* [id number] IMPRESSION: 1. No acute intracranial hemorrhage or mass effect. 2. Other findings discussed above.
[2022-07-22 00:56] LABS: Thyroid Stimulating Hormone 15.21 uIU/mL (0.27-4.20)
--- NOTE | 2022-07-22 00:59 | ED_ITS ---
HPI - Chest Pain General: Chief Complaint: Chest Pain Stated Complaint: chest pain Time Seen by Provider: 07/22/22 00:05 Source: patient Mode of arrival: ambulatory Limitations: no limitations History of Present Illness: Patient presents emergency department today for evaluation treatment of multiple complaints including generalized headache for several weeks, intense fatigue with dyspnea on exertion, retrosternal chest pain, bilateral hand swelling, vision different . Patient is 4 months postpart and indicated she had preeclampsia during . Patient had some lab work and was found to have an abnormal thyroid. She started Synthroid approximately 5 days ago. Patient is currently breast-feeding. Patient states she has tried Tylenol and ibuprofen for her symptoms without any relief. She also notes that she is vitamin D deficient and is currently being supplemented. Patient states that she does get elevated blood pressures and that it causes her face to flush. She notified her doctor today of the symptoms persisting and they referred her on here to the emergency room. Review of Systems General: Reports: 10 or more systems reviewed and unremarkable except in HPI and below Const: Reports: fatigue Eyes: Reports: change in vision (feels her vision isnt the same) Card: Reports: chest pain and dyspnea on exertion Neuro: Reports: headache(s) PFSH ED PFSH: Medical History Cellulitis of forearm, left Hand pain History of pre-eclampsia in prior , currently in first trimester Hyperprolactinemia Pelvic pain Surgical History No history of previous surgery S/P breast biopsy Benign cyst Family History Father Seizures Hypertension Stroke Mother No problems noted. Grandmother Hypertension paternal Grandfather Hypertension paternal Diabetes paternal Family/Other Diabetes paternal uncle Stomach cancer maternal aunt Denies family history of Colon cancer Ovarian cancer Heart disease Hypercholesteremia Breast cancer Uterine cancer Thyroid disease Social History Smoking and tobacco status: never smoked Physical Exam Const: COMMON NORMALS: no acute distress, patient oriented x3 and alert HENMT: COMMON NORMALS: normocephalic, atraumatic, hearing grossly normal bilaterally and moist oral mucous membranes HEAD & SCALP: normocephalic and atraumatic Eye: COMMON NORMALS: Equal, round and reactive pupils present, EOMs intact bilaterally and conjunctivae normal CONJUNCTIVA: Yes conjunctivae normal PUPIL: Yes Equal, round and reactive pupils present Neck/C-Spine: COMMON NORMALS: full ROM and no JVD Lymph: LYMPHATIC: no lymphadenopathy noted Resp: COMMON NORMALS: normal respiratory effort, No retractions, No use of accessory muscles and clear to auscultation bilaterally AUSCULTATION: clear to auscultation bilaterally Cardio: COMMON NORMALS: no JVD, regular rate and regular rhythm RATE: regular rate RHYTHM: regular rhythm GI: COMMON NORMALS: Normal to inspection, nondistended, normoactive bowel sounds present : COMMON NORMALS: Yes no CVA tenderness BLADDER/KIDNEY EXAM: Yes no CVA tenderness Back/Pelvis: COMMON NORMALS: no CVA tenderness, no thoracic nor lumbar tenderness and thoraco-lumbar ROM normal Extremity: COMMON NORMALS: normal to inspection, full ROM and capillary refill normal Neuro: COMMON NORMALS: patient oriented x3 SENSORIUM/ORIENTATION: Yes alert Psych: COMMON NORMALS: mental status grossly normal, Normal thought process present, cooperative, normal affect and activity/motor behavior normal THOUGHT PROCESS: Normal thought process present Skin: COMMON NORMALS: no rashes or lesions noted and no wounds GENERAL SKIN EXAM: no rashes or lesions noted Course Vital Signs: Vital signs: Vital Signs Temperature 97.6 F 07/21/22 20:40 Pulse Rate 60 07/21/22 20:40 Respiratory Rate 18 07/21/22 20:40 Blood Pressure 132/87 07/21/22 20:40 Pulse Oximetry 98 07/21/22 20:40 MDM - Chest Pain Medical Decision Making Patient presented to the ER today for evaluation treatment of generalized headache, retrosternal chest pain, bilateral hand swelling, and nausea. Patient states she has had symptoms now for several weeks and did have a history of preeclampsia with her most recent . Patient is 4 months . She states her blood pressure has gotten elevated and causes her face to flush. Patient's initial lab work was otherwise unremarkable with a negative chest x- ray and head CT. However, during the patient's work-up, she indicated she needed to leave and left before her final lab work had posted and did not receive her total treatment course. Patient was asked to follow-up with her primary care doctor to go over her test results. It does appear that her TSH is significantly elevated which could be causing some of her issues-especially the possibility of chest pain problems. However, she needs to follow-up with primary care or, should return to the emergency department if acutely worsening. Differential Diagnosis Likely acute massive pulmonary embolism (Eclampsia, hypertension, TIA, ICH, anemia, electrolyte imbalance) and acute myocardial infarction Lab Data 07/21/22 00:12 07/21/22 00:12 Radiology Impressions Chest X-Ray 07/21/22 20:47 IMPRESSION: No acute abnormality demonstrated. Head CT 07/22/22 00:46 IMPRESSION: 1. No acute intracranial hemorrhage or mass effect. 2. Other findings discussed above. Laboratory Results WBC 11.5 10^3/uL (4.0-10.0) H 07/21/22 00:12 RBC 4.82 10^6/uL (4.1-5.3) 07/21/22 00:12 Hgb 13.6 g/dL (11.5-15.3) 07/21/22 00:12 Hct 42.5 % (37.0-47.0) 07/21/22 00:12 MCV 88.2 fl (81-99) 07/21/22 00:12 MCH 28.2 pg (28.0-34.0) 07/21/22 00:12 MCHC 32.0 g/dL (30.0-36.0) 07/21/22 00:12 RDW 13.2 % (12.1-15.1) 07/21/22 00:12 Plt Count 212 10^3/cmm (130-400) 07/21/22 00:12 MPV 12.8 fL (7.4-10.4) H 07/21/22 00:12 Neut % (Auto) 63.6 % 07/21/22 00:12 Lymph % (Auto) 26.2 % 07/21/22 00:12 [place] % (Auto) 6.2 % 07/21/22 00:12 Eos % (Auto) 3.1 % 07/21/22 00:12 Baso % (Auto) 0.4 % 07/21/22 00:12 Neut # (Auto) 7.28 10^3/uL (1.8-7.7) 07/21/22 00:12 Lymph # (Auto) 3.0 10^3/uL (0.8-4.8) 07/21/22 00:12 [place] # (Auto) 0.7 10^3/uL (0.2-0.9) 07/21/22 00:12 Eos # (Auto) 0.4 10^3/uL (0.0-0.8) 07/21/22 00:12 Baso # (Auto) 0.1 10^3/uL (0.0-0.1) 07/21/22 00:12 Nucleated RBC % (auto) 0 % 07/21/22 00:12 Nucleated RBCs # 0.0 /100WBC 07/21/22 00:12 D-Dimer <= 0.27 ug/mIFEU (0-0.59) 07/22/22 00:12 Sodium 141 mmol/L (136-145) 07/21/22 00:12 Potassium 3.8 mmol/L (3.5-5.1) 07/21/22 00:12 Chloride 105 mmol/L (98-107) 07/21/22 00:12 Carbon Dioxide 23 mmol/L (22-29) 07/21/22 00:12 Anion Gap 16.8 (5-19) 07/21/22 00:12 BUN 18 mg/dL (6-20) 07/21/22 00:12 Creatinine 0.5 mg/dL (0.5-0.9) 07/21/22 00:12 GFR Calculation 155.7 mL/min (90-130) H 07/21/22 00:12 Glucose 89 mg/dL (65-115) 07/21/22 00:12 Calculated Osmolality 293 mOsm/kg (285-295) 07/21/22 00:12 Calcium 8.9 mg/dL (8.5-10.5) 07/21/22 00:12 Total Bilirubin 0.2 mg/dL (0.15-1.2) 07/21/22 00:12 AST 17 U/L (0-32) 07/21/22 00:12 ALT 34 U/L (0-33) H 07/21/22 00:12 Alkaline Phosphatase 82 U/L (35-105) 07/21/22 00:12 Total Protein 7.3 g/dL (6.6-8.7) 07/21/22 00:12 Albumin 4.6 g/dL (3.5-5.2) 07/21/22 00:12 Globulin 2.7 g/dL (1.3-4.6) 07/21/22 00:12 Lipase 19 U/L (13-60) 07/21/22 00:12 TSH 15.21 uIU/mL (0.27-4.20) H 07/21/22 00:12 Urine Color Light yellow (Yellow) 07/22/22 01:00 Urine Appearance Clear (CLEAR) 07/22/22 01:00 Urine pH 5 (5-7) 07/22/22 01:00 Ur Specific [place] 1.025 (1.005-1.030) 07/22/22 01:00 Urine Protein Neg (Negative) 07/22/22 01:00 Urine Glucose (UA) Norm (Normal) 07/22/22 01:00 Urine Ketones Negative (Negative) 07/22/22 01:00 Urine Blood Neg (Negative) 07/22/22 01:00 Urine Nitrate Negative (Negative) 07/22/22 01:00 Urine Bilirubin Neg (Negative) 07/22/22 01:00 Urine Urobilinogen Neg mg/dL (Negative) 07/22/22 01:00 Ur Leukocyte Esterase Negative (Negative) 07/22/22 01:00 Discharge Plan Discharge Patient Disposition: Left Against Medical Advice Clinical Impression: Headache, Chest pain, Dyspnea on exertion Condition: Stable Prescriptions: No Action cholecalciferol (vitamin D3) [Dialyvite Vitamin D] 125 mcg (5,000 unit) capsule 125 mcg PO DAILY levothyroxine 13 mcg capsule 25 mcg PO DAILY Referrals: Fay Sommer DO [Primary Care Provider] - Activity Restrictions/Additional Instructions: Pt needs to follow up with PCP regarding testing results as most are still pending at this time. Coding Level of Care Code ED Glazier Helper for Chg Fwd Exam Comprehensive
[2022-07-22 01:07] LABS: D Dimer <= 0.27 ug/mIFEU (0-0.59)
[2022-07-22] MEDS: metoclopramide 5 mg/mL SDV 2 mL 10 MG IVP (01:15)
[2022-07-22 01:31] LABS: Add Urine Microscopic? NO; Charge for UA Resulting for Rev
[2022-07-22 01:33] LABS: Urine Appearance Clear (CLEAR); Urine Color Light yellow (Yellow); pH Urine 5 (5-7)
[2022-07-22 01:34] LABS: Bilirubin Urine Neg (Negative); Blood Urine Neg (Negative); Glucose Urine UA Norm (Normal); Ketones Urine Negative (Negative); Leukocyte Esterase Urine Negative (Negative); Nitrate Urine Negative (Negative); Protein Urine Neg (Negative); Specific Gravity, Urine 1.025 (1.005-1.030); Urobilinogen Urine Neg (Negative)
== END 2022-07-22 02:00 | disposition left against medical advice (07) ==
PROVIDERS: Emergency Medicine; Emergency Provider Physician Assistant; PCP Family Medicine
DX: R07.9 Chest pain, unspecified (principal); R51.9 Headache, unspecified; R06.00 Dyspnea, unspecified; Z53.21 Procedure and treatment not carried out due to patient leaving prior to being seen by health care provider
CPT/HCPCS: 36415; 70450; 71045; 80053; 81003; 83690; 84443; 85025; 85378; 93005; 96374; 99285; J2765

== ENCOUNTER → 2022-07-22 14:06 | Outpatient (BNVA) | payer MEDICAID, SELFPAY | PROVIDERS: PCP Family Medicine; Visit Provider Internal Medicine | DX: E03.9 Hypothyroidism, unspecified (principal); E07.9 Disorder of thyroid, unspecified | CPT/HCPCS: 36415; 83516; 84439; 84443; 84480; 86376; 86800 ==

== ENCOUNTER 2022-07-25 09:14 | Outpatient (CLI) | payer MEDICAID, SELFPAY ==
--- NOTE | 2022-07-25 09:30 | US_ITS ---
WS: [id number] THYROID ULTRASOUND HISTORY: hypothyroidism COMPARISON: None available. Right lobe: 3.4 cm x 2.9 cm x 6.9 cm (w x ap x l). Volume: 35.8 cm3. Markedly enlarged heterogeneous thyroid. Hypoechoic nodular pattern throughout the entire gland. No d iscrete mass. There is diffuse increased vascularity. Left lobe: 2.8 cm x 3.0 cm x 7.3 cm (w x ap x l). Volume: 31.8 cm3. Markedly enlarged heterogeneous thyroid. Hypoechoic, nodular pattern throughout the entire gland. No discrete mass. Diffuse increased vascularity. No adenopathy. Isthmus: 1.2 cm. US/US thyroid 71242 IMPRESSION: Markedly enlarged heterogeneous gland with increased vascularity. Most typical for Nola's thyroiditis.
== END 2022-07-25 09:15 | disposition home or self-care (01) ==
PROVIDERS: PCP Family Medicine; Visit Provider Internal Medicine
DX: E03.9 Hypothyroidism, unspecified (principal); E04.9 Nontoxic goiter, unspecified
CPT/HCPCS: 76536

== ENCOUNTER 2022-07-31 11:02 | Outpatient (CLI) | payer MEDICAID, SELFPAY ==
[2022-07-31 11:59] LABS: Free T4 Free Thyroxine 0.91 ng/dL (0.82-1.77)
== END 2022-07-31 11:03 | disposition home or self-care (01) ==
LOC: LAB 11:06
PROVIDERS: PCP Family Medicine; Visit Provider Internal Medicine
DX: E06.3 Autoimmune thyroiditis (principal); E03.9 Hypothyroidism, unspecified
CPT/HCPCS: 36415; 84439

== ENCOUNTER 2022-09-05 13:36 | Emergency (ER) | payer MEDICAID, SELFPAY ==
[2022-09-05] VITALS (7 sets, daily range): BP systolic 109–135; BP diastolic 73–102; PULSE 67–92; RESP 16; TEMP 36.9; O2SAT 95–100
[2022-09-05 15:05] LABS: Basophils # 0.1 10^3/uL (0.0-0.1); Basophils % 0.9 %; Eosinophils # 0.3 10^3/uL (0.0-0.8); Eosinophils % 2.9 %; Hematocrit 41.5 % (37.0-47.0); Hemoglobin 13.3 g/dL (11.5-15.3); Lymphocytes # 2.7 10^3/uL (0.8-4.8); Lymphocytes % 29.5 %; Mean Corpuscular Hemoglobin 28.4 pg (28.0-34.0); Mean Corpuscular Volume 88.5 fl (81-99); Mean Platelet Volume 12.8 fL (7.4-10.4); Monocytes # 0.6 10^3/uL (0.2-0.9); Monocytes % 6.1 %; Neutrophils # 5.37 10^3/uL (1.8-7.7); Neutrophils % 59.8 %; Nucleated Red Blood Cells % 0 %; Platelet Count 230 10^3/cmm (130-400); Red Blood Count 4.69 10^6/uL (4.1-5.3); Red Cell Distribution Width 13.7 % (12.1-15.1)
[2022-09-05 15:23] LABS: Alanine Aminotransferase 28 U/L (0-33); Albumin Level 4.4 g/dL (3.5-5.2); Alkaline Phosphatase 87 U/L (35-105); Anion Gap 16.1 (5-19); Aspartate Amino Transferase 19 U/L (0-32); Blood Urea Nitrogen 11 mg/dL (6-20); Calcium 8.8 mg/dL (8.5-10.5); Carbon Dioxide 25 mmol/L (22-29); Chloride 104 mmol/L (98-107); Glomerular Filtration Rate 126.2 mL/min (90-130); Glucose 83 mg/dL (65-115); Osmolality Calculated 291 mOsm/kg (285-295); Potassium 4.1 mmol/L (3.5-5.1); Sodium 141 mmol/L (136-145); Total Bilirubin 0.2 mg/dL (0.15-1.2); Total Protein 7.4 g/dL (6.6-8.7)
--- NOTE | 2022-09-05 15:30 | ECG_ITS ---
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 Measurements Intervals [place] Rate: 65 P: 17 HI: 159 QRS: 33 QRSD: 102 T: 23 QT: 422 QTc: 439 Interpretive Statements SINUS RHYTHM WITH SINUS ARRHYTHMIA Compared to ECG 07/21/2022 20:43:41 No significant changes Electronically Signed On 09-05-2022 22:23:55 [employer]UPOLA WORKER by Yassine Jarrell M.D. [id number]
--- NOTE | 2022-09-05 15:51 | W.ED.DIZZY ---
HPI - Dizziness General: Chief Complaint: Dizziness Stated Complaint: possible syncope Time Seen by Provider: 09/05/22 15:30 Source: patient Mode of arrival: ambulatory History of Present Illness: HPI Narrative: 22-year-old female who presents emergency room and there is syncopal episode. She had migraines for the last several months. She relates in the beginning when she completed her . She been seeing Dr. Porter for these apractic various medications. 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 She is currently on amoxicillin for a sinus infection. She felt like she had a hard time forming her words for a brief period of time but that passed. She has no focal neurologic deficits has normal speech and gait and balance when seen in the emergency room. MD elicited complaint: dizziness, lightheadedness and near syncope Onset (ago): minute(s) Timing: sudden onset Severity: moderate Description: lightheadedness and off-balance History of similar symptoms: Yes Exacerbating factors: nothing Relieving factors: nothing Associated symptoms: Reports nausea; Denies change in hearing, chest pain, chills, cough, diaphoresis, ear discharge, ear pressure, fevers/chills, headache(s), malaise, nasal congestion, palpitations, rash, short of breath, syncope, tinnitus, vomiting or weakness Review of Systems Const: Denies: fever(s), chills, malaise or diaphoresis ENMT: Reports: ear or mastoid pain; Denies: throat pain, ear discharge, change in hearing, tinnitus or nasal congestion Card: Denies: chest pain, palpitations or syncope Resp: Denies: dyspnea, productive cough or non-productive cough GI: Reports: nausea; Denies: abdominal pain or vomiting : Denies: flank pain, difficulty voiding, dysuria, urinary frequency or urinary urgency Skin/Breast: Denies: rash or pruritus Neuro: Denies: headache(s) PFS ED PFSH: Medical History Cellulitis of forearm, left Hand pain History of pre-eclampsia in prior , currently in first trimester Hospital discharge follow-up Hyperprolactinemia Pelvic pain Surgical History S/P breast biopsy Benign cyst - bilateral breasts Family History Father Seizures Hypertension Stroke Mother No problems noted. Grandmother Hypertension paternal Grandfather Hypertension paternal Diabetes paternal Family/Other Diabetes paternal uncle Stomach cancer maternal aunt Denies family history of Colon cancer Ovarian cancer Heart disease Hypercholesteremia Breast cancer Uterine cancer Thyroid disease Social History Smoking and tobacco status: never smoked Physical Exam Const: GENERAL APPEARANCE: cooperative and comfortable ORIENTATION/CONSCIOUSNESS: Yes awake, Yes oriented to person, Yes oriented to place and Yes oriented to time HENMT: COMMON NORMALS: normocephalic, atraumatic and hearing grossly normal bilaterally HEAD & SCALP: normocephalic and atraumatic Resp: COMMON NORMALS: normal respiratory effort, No retractions, No use of accessory muscles and clear to auscultation bilaterally AUSCULTATION: clear to auscultation bilaterally Cardio: COMMON NORMALS: regular rate, regular rhythm and No murmurs present (Cardio) RATE: regular rate RHYTHM: regular rhythm GI: COMMON NORMALS: Soft to palpation and No hepatosplenomegaly present AUSCULTATION: Yes normoactive bowel sounds PALPATION: Yes Soft to palpation, No Tenderness to palpation present (GI), No Guarding due to palpation present (GI) and Yes No hepatosplenomegaly present Extremity: COMMON NORMALS: normal to inspection, capillary refill normal, no clubbing, cyanosis or edema, no calf tenderness and no pedal edema Neuro: SENSORIUM/ORIENTATION: Yes oriented to person, Yes oriented to place and Yes oriented to time Skin: COMMON NORMALS: no rashes or lesions noted GENERAL SKIN EXAM: no rashes or lesions noted Course Vital Signs: Vital signs: Vital Signs Temperature 98.5 F 09/05/22 13:39 Pulse Rate 75 09/05/22 18:44 Respiratory Rate 16 09/05/22 18:44 Blood Pressure 123/79 09/05/22 18:44 Pulse Oximetry 95 09/05/22 18:44 Oxygen Delivery Me thod 09/05/22 13:39 MDM - Dizziness Medical Decision Making Patient improved slightly with fluids. She declined the medications we offered her because she is breast-feeding. She be discharged home with meclizine to use as needed. She has not had any further symptoms while she is here headache issues been ongoing thing refer back to Dr. Porter for those. I think the primary cause of her symptoms today was a transient orthostatic hypotension. Medical Records I reviewed the patient's medical records. Lab Data I reviewed the patient's lab results. 09/05/22 14:45 09/05/22 14:45 Laboratory Results WBC 9.0 10^3/uL (4.0-10.0) 09/05/22 14:45 RBC 4.69 10^6/uL (4.1-5.3) 09/05/22 14:45 Hgb 13.3 g/dL (11.5-15.3) 09/05/22 14:45 Hct 41.5 % (37.0-47.0) 09/05/22 14:45 MCV 88.5 fl (81-99) 09/05/22 14:45 MCH 28.4 pg (28.0-34.0) 09/05/22 14:45 MCHC 32.0 g/dL (30.0-36.0) 09/05/22 14:45 RDW 13.7 % (12.1-15.1) 09/05/22 14:45 Plt Count 230 10^3/cmm (130-400) 09/05/22 14:45 MPV 12.8 fL (7.4-10.4) H 09/05/22 14:45 Neut % (Auto) 59.8 % 09/05/22 14:45 Lymph % (Auto) 29.5 % 09/05/22 14:45 [place] % (Auto) 6.1 % 09/05/22 14:45 Eos % (Auto) 2.9 % 09/05/22 14:45 Baso % (Auto) 0.9 % 09/05/22 14:45 Neut # (Auto) 5.37 10^3/uL (1.8-7.7) 09/05/22 14:45 Lymph # (Auto) 2.7 10^3/uL (0.8-4.8) 09/05/22 14:45 [place] # (Auto) 0.6 10^3/uL (0.2-0.9) 09/05/22 14:45 Eos # (Auto) 0.3 10^3/uL (0.0-0.8) 09/05/22 14:45 Baso # (Auto) 0.1 10^3/uL (0.0-0.1) 09/05/22 14:45 Nucleated RBC % (auto) 0 % 09/05/22 14:45 Nucleated RBCs # 0.0 /100WBC 09/05/22 14:45 Sodium 141 mmol/L (136-145) 09/05/22 14:45 Potassium 4.1 mmol/L (3.5-5.1) 09/05/22 14:45 Chloride 104 mmol/L (98-107) 09/05/22 14:45 Carbon Dioxide 25 mmol/L (22-29) 09/05/22 14:45 Anion Gap 16.1 (5-19) 09/05/22 14:45 BUN 11 mg/dL (6-20) 09/05/22 14:45 Creatinine 0.6 mg/dL (0.5-0.9) 09/05/22 14:45 GFR Calculation 126.2 mL/min (90-130) 09/05/22 14:45 Glucose 83 mg/dL (65-115) 09/05/22 14:45 Calculated Osmolality 291 mOsm/kg (285-295) 09/05/22 14:45 Calcium 8.8 mg/dL (8.5-10.5) 09/05/22 14:45 Total Bilirubin 0.2 mg/dL (0.15-1.2) 09/05/22 14:45 AST 19 U/L (0-32) 09/05/22 14:45 ALT 28 U/L (0-33) 09/05/22 14:45 Alkaline Phosphatase 87 U/L (35-105) 09/05/22 14:45 Total Protein 7.4 g/dL (6.6-8.7) 09/05/22 14:45 Albumin 4.4 g/dL (3.5-5.2) 09/05/22 14:45 Globulin 3.0 g/dL (1.3-4.6) 09/05/22 14:45 HCG, Qual Negative (Negative) 09/05/22 17:15 Urine Color Yellow (Yellow) 09/05/22 17:15 Urine Appearance Cloudy (CLEAR) A 09/05/22 17:15 Urine pH 5 (5-7) 09/05/22 17:15 Ur Specific [place] 1.030 (1.005-1.030) 09/05/22 17:15 Urine Protein 1+ (Negative) H 09/05/22 17:15 Urine Glucose (UA) Norm (Normal) 09/05/22 17:15 Urine Ketones 1+ (Negative) H 09/05/22 17:15 Urine Blood 3+ (Negative) H 09/05/22 17:15 Urine Nitrate Negative (Negative) 09/05/22 17:15 Urine Bilirubin Neg (Negative) 09/05/22 17:15 Urine Urobilinogen Neg mg/dL (Negative) 09/05/22 17:15 Ur Leukocyte Esterase Trace (Negative) H 09/05/22 17:15 Urine RBC Too numerous to cnt /hpf (0-2) H 09/05/22 17:15 Urine WBC 0-4 /hpf (0-5) H 09/05/22 17:15 Ur Squamous Epith Cells 5-10 /hpf (0-5) H 09/05/22 17:15 Amorphous Sediment Not Reportable 09/05/22 17:15 Urine Bacteria None /hpf (NONE) 09/05/22 17:15 Urine Mucus 1+ /hpf 09/05/22 17:15 Discharge Plan Discharge Patient Disposition: Home Clinical Impression: Dizziness Condition: Stable Prescriptions: No Action amoxicillin-pot clavulanate 875-125 mg tablet 1 tab PO Q12H Qty: 14 0RF norethindrone (contraceptive) 0.35 mg tablet 0.35 mg PO DAILY Qty: 84 0RF cholecalciferol (vitamin D3) [Dialyvite Vitamin D] 125 mcg (5,000 unit) capsule 125 mcg PO DAILY levothyroxine [Synthroid] 50 mcg tablet 50 mcg PO DAILY Qty: 90 2RF Discharge Orders: Discharge ED (Routine); Ordered 09/05/22 Ordered By: Jeramie Duvall Referrals: Fay Sommer DO [Primary Care Provider] - Discharge Diet: Advance as tolerated Discharge Activity: Resume usual activity Patient Instructions: Dizziness (ED) Coding Level of Care Code ED Crime Scene Photographer for Jesse Plunkett
--- NOTE | 2022-09-05 15:59 | PC.NURSE ---
pt reports she started an antibiotic 6 days ago for a sinus infection. pt reports she began feeling dizzy, felt like she was going to pass out, and that she was getting warm. pt states when she calmed down, she began to feel like she was freezing. pt is alert and oriented. speech clear. speaking in complete sentences without difficulty.
[2022-09-05] MEDS: sodium chloride 0.9% 1,000 ML 999 ML IV (16:24)
[2022-09-05 17:36] LABS: HCG Qualitative Urine. Negative (Negative)
[2022-09-05 17:44] LABS: Add Urine Culture? Yes; Add Urine Microscopic? YES; Bilirubin Urine Neg (Negative); Blood Urine 3+ (Negative); Glucose Urine UA Norm (Normal); Ketones Urine 1+ (Negative); Leukocyte Esterase Urine Trace (Negative); Mucus Urine 1+ /hpf; Nitrate Urine Negative (Negative); Protein Urine 1+ (Negative); RBC Urine TOO NUMEROUS TO CNT /hpf (0-2); Urine Appearance Cloudy (CLEAR); Urine Color Yellow (Yellow); Urobilinogen Urine Neg (Negative); WBC Urine 0-4 /hpf (0-5); pH Urine 5 (5-7)
== END 2022-09-05 18:50 | disposition home or self-care (01) ==
PROVIDERS: Emergency Medicine; Emergency Provider Family Medicine; PCP Family Medicine
DX: R42 Dizziness and giddiness (principal)
CPT/HCPCS: 36415; 80053; 81001; 81025; 85025; 87086; 93005; 96360; 99284; J7030

== ENCOUNTER → 2022-09-11 11:40 | Outpatient (BNVA) | payer MEDICAID, SELFPAY | PROVIDERS: PCP Family Medicine; Visit Provider Otolaryngology | DX: E06.3 Autoimmune thyroiditis (principal); E01.0 Iodine-deficiency related diffuse (endemic) goiter | CPT/HCPCS: 36415; 84439; 84443; 84481 ==

== ENCOUNTER 2022-10-04 09:09 | Outpatient (CLI) | payer MEDICAID, SELFPAY ==
[2022-10-04 10:01] LABS: Estmated Average Glucose 100; Hemoglobin A1C 5.1 % (4.0-6.0)
[2022-10-04 10:19] LABS: Thyroid Stimulating Hormone 3.45 uIU/mL (0.27-4.20)
[2022-10-06 00:45] LABS: T3 Total 132 ng/dL (76-181)
== END 2022-10-04 09:10 | disposition home or self-care (01) ==
LOC: LAB 09:13
PROVIDERS: PCP Family Medicine; Visit Provider Internal Medicine
DX: E01.0 Iodine-deficiency related diffuse (endemic) goiter (principal); E07.9 Disorder of thyroid, unspecified; R13.10 Dysphagia, unspecified
CPT/HCPCS: 36415; 83036; 84443; 84480

== ENCOUNTER 2022-10-14 07:43 | Outpatient (CLI) | payer MEDICAID, SELFPAY ==
--- NOTE | 2022-10-14 07:59 | MR_ITS ---
WS: [id number] MRI HEAD WITHOUT AND WITH GADOLINIUM ENHANCEMENT WITH ATTENTION TO THE ORBITS TECHNIQUE: Sagittal T1, T2 axial, T2 axial FLAIR, axial susceptibility weighted imaging, axial diffus ion weighted images, and coronal T2 images were obtained. Pre and post-T1 axial and post T1 coronal i mages. ADC and FSPGR images. High-resolution imaging of the orbits with post gadolinium fat saturatio n imaging.Some images initially are degraded due to susceptibility artifact overlying the LEFT calvar ium from metal in bra. CLINICAL INFORMATION: OPTIC NERVE EDEMA COMPARISON: None. FINDINGS: No evidence of restricted diffusion to suggest acute ischemia. Ventricular system and basal cisterns are patent. Normal posterior fossa. Normal vascular flow voids at the skull base. No extra-axial flui d collections. No evidence of mass or mass effect. Mastoid air cells are well aerated. Normal posteri or nasopharynx. Normal parapharyngeal fat. No hemosiderin on susceptibly weighted images. Normal optic chiasm and pituitary infundibulum. No significant optic nerve edema or optic nerve enhan cement seen today. Optic nerves are normal in appearance. Normal pituitary enhancement. Normal pituit richard infundibulum. Normal cavernous sinuses and Meckel's cave. Normal rectus muscles. No evidence of intraconal mass or lesion. Globes are normal in appearance. Incidental venous angioma RIGHT cerebellum. Normal dural venous sinu ses. MR/MR head orbits wo/w* [id number] IMPRESSION: 1. Normal optic chiasm and pituitary infundibulum. 2. Optic nerves are normal in appearance. No significant optic nerve edema or optic neuritis. No abnormal enhancement. 3. No evidence of intraconal mass or lesion. Normal globes. 4. No restricted diffusion to suggest acute ischemia. 5. No suspicious intracranial signal abnormalities.
[2022-10-14] MEDS: gadobenate dimeglumine 20 mL vial IV (08:56)
== END 2022-10-14 07:44 | disposition home or self-care (01) ==
LOC: RAD 07:54
PROVIDERS: PCP Family Medicine; Visit Provider Student in an Organized Health Care Education/Training Program
DX: H47.10 Unspecified papilledema (principal)
CPT/HCPCS: 70543; 70553; A9577

== ENCOUNTER 2022-12-25 15:44 | Outpatient (CLI) | payer MEDICAID, SELFPAY ==
[2022-12-25 16:53] LABS: Free T4 Free Thyroxine 1.22 ng/dL (0.82-1.77); Thyroid Stimulating Hormone 1.67 uIU/mL (0.27-4.20)
[2022-12-27 01:44] LABS: T3 Total 126 ng/dL (76-181)
== END 2022-12-25 15:45 | disposition home or self-care (01) ==
PROVIDERS: PCP Family Medicine; Visit Provider Internal Medicine
DX: E07.9 Disorder of thyroid, unspecified (principal); E03.9 Hypothyroidism, unspecified; E01.0 Iodine-deficiency related diffuse (endemic) goiter; R13.10 Dysphagia, unspecified
CPT/HCPCS: 36415; 84439; 84443; 84480

== ENCOUNTER 2022-12-29 16:51 | Emergency (ER) | payer MEDICAID, SELFPAY ==
[2022-12-29 16:58] VITALS: BP 117/84; PULSE 98; RESP 17; TEMP 36.8; O2SAT 98; BMI 34.3
[2022-12-29 17:04] VITALS: BP 158/100; O2SAT 97
[2022-12-29 17:34] VITALS: O2SAT 97
[2022-12-29 17:48] LABS: Basophils # 0.1 10^3/uL (0.0-0.1); Basophils % 0.6 %; Eosinophils # 0.4 10^3/uL (0.0-0.8); Eosinophils % 3.8 %; Hematocrit 41.9 % (37.0-47.0); Hemoglobin 13.3 g/dL (11.5-15.3); Lymphocytes # 2.8 10^3/uL (0.8-4.8); Lymphocytes % 29.1 %; Mean Corpuscular HGB Conc 31.7 g/dL (30.0-36.0); Mean Corpuscular Hemoglobin 28.5 pg (28.0-34.0); Mean Corpuscular Volume 89.7 fl (81-99); Mean Platelet Volume 13.1 fL (7.4-10.4); Monocytes # 0.7 10^3/uL (0.2-0.9); Monocytes % 7.2 %; Neutrophils # 5.62 10^3/uL (1.8-7.7); Neutrophils % 58.8 %; Nucleated Red Blood Cells % 0 %; Platelet Count 206 10^3/cmm (130-400); Red Blood Count 4.67 10^6/uL (4.1-5.3); White Blood Count 9.6 10^3/uL (4.0-10.0)
[2022-12-29 18:39] LABS: Alanine Aminotransferase 24 U/L (0-33); Albumin Level 4.3 g/dL (3.5-5.2); Alkaline Phosphatase 62 U/L (35-105); Anion Gap 13.8 (5-19); Aspartate Amino Transferase 14 U/L (0-32); Blood Urea Nitrogen 10 mg/dL (6-20); Calcium 8.5 mg/dL (8.5-10.5); Carbon Dioxide 23 mmol/L (22-29); Chloride 107 mmol/L (98-107); Globulin 2.4 g/dL (1.3-4.6); Glomerular Filtration Rate 155.7 mL/min (90-130); Glucose 93 mg/dL (65-115); Osmolality Calculated 289 mOsm/kg (285-295); Potassium 3.8 mmol/L (3.5-5.1); Sodium 140 mmol/L (136-145); Total Bilirubin 0.2 mg/dL (0.15-1.2); Total Protein 6.7 g/dL (6.6-8.7)
--- NOTE | 2022-12-29 18:57 | W.ED.GIBLEED ---
HPI - GI Bleed General: Chief complaint: GI Bleed Stated complaint: blood in stool Time Seen by Provider: 12/29/22 17:13 History of Present Illness: 22-year-old female presents emergency room with 1 day episode of rectal bleeding. Patient denies any rectal pain, no sexual activity, no constipation, no abdominal pain, no dysuria or hematuria. She further reveals that she noticed a little blood in the bowl. Denies any clot. No rectal pain. No recent weight changes or night sweats. Associated symptoms: Denies abdominal pain, chills, fever(s), headache(s), nausea, rash or vomiting Review of Systems General: Reports: 10 or more systems reviewed and unremarkable except in HPI and below Const: Denies: fever(s), chills or body aches GI: Reports: hematochezia; Denies: abdominal pain, nausea, vomiting, hematemesis, excessive flatus, rectal pain, rectal itching, melena or white/light colored stool Skin/Breast: Denies: rash, pruritus, erythema or photosensitivity Neuro: Denies: headache(s), numbness in extremities, weakness in extremities, sensory changes, lack of coordination or difficulty walking PFSH ED PFSH: Medical History Cellulitis of forearm, left Hand pain History of pre-eclampsia in prior , currently in first trimester Hospital discharge follow-up Hyperprolactinemia Pelvic pain Surgical History S/P breast biopsy Benign cyst - bilateral breasts Family History Father Seizures Hypertension Stroke Mother No problems noted. Grandmother Hypertension paternal Grandfather Hypertension paternal Diabetes paternal Family/Other Diabetes paternal uncle Stomach cancer maternal aunt Denies family history of Colon cancer Ovarian cancer Heart disease Hypercholesteremia Breast cancer Uterine cancer Thyroid disease Social History Smoking and tobacco status: never smoked Substance/Drug Use: never Female Reproductive History: Date of last menstrual period: 12/08/22 Physical Exam Const: COMMON NORMALS: no acute distress, average body habitus, patient oriented x3, no limitations, healthy appearing, alert and well nourished HENMT: COMMON NORMALS: normocephalic, atraumatic, hearing grossly normal bilaterally, external ears normal, EAC's normal, TM's normal bilaterally, Normal external nose present, Normal nasal mucous membranes and turbinates present, moist oral mucous membranes, oropharynx normal, dentition normal and gingiva normal HEAD & SCALP: normocephalic and atraumatic NOSE: Normal external nose present and Normal nasal mucous membranes and turbinates present EXTERNAL EAR: Yes external ears normal EXTERNAL AUDITORY CANAL: EAC's normal TYMPANIC MEMBRANE: TM's normal bilaterally Neck/C-Spine: COMMON NORMALS: no JVD Chest: COMMONS NORMALS: normal inspection of the chest, normal palpation of entire chest wall, normal inspection of the breasts and normal palpation of the breasts Breast/axilla inspection: Yes normal inspection of the breasts BREAST/AXILLA PALPATION: Yes normal palpation of the breasts Resp: COMMON NORMALS: normal respiratory effort, No retractions, No use of accessory muscles, clear to auscultation bilaterally and percussion normal AUSCULTATION: clear to auscultation bilaterally PERCUSSION: percussion normal Cardio: COMMON NORMALS: no JVD, regular rate, regular rhythm, S1 normal heart sound present, S2 normal heart sound present, No gallops present (Cardio), No clicks present (Cardio), No murmurs present (Cardio), No rub (Cardio) and Peripheral pulses 2+ throughout RATE: regular rate RHYTHM: regular rhythm HEART SOUNDS: S1 normal heart sound present and S2 normal heart sound present PERIPHERAL PULSES: Peripheral pulses 2+ throughout GI: INSPECTION: No Laceration(s) present (GI) RECTAL EXAM: visual inspection normal, normal sphincter tone, abnormal sphincter tone, stool normal, heme positive stool, No External hemorrhoid(s) present, No Internal hemorrhoid(s) present, No Rectal prolapse, no fecal impaction, no lesion(s) noted, no fissure noted, no hemorrhoids noted, No Fistula present (GI), no laceration(s) noted, No Excoriation present (GI), no mass(es) noted, no tenderness noted and visual inspection normal Neuro: COMMON NORMALS: patient oriented x3 SENSORIUM/ORIENTATION: Yes alert Skin: COMMON NORMALS: no rashes or lesions noted, no wounds, turgor normal, no petechiae and no mottling GENERAL SKIN EXAM: no rashes or lesions noted and turgor normal Course ED course: Patient monitored in the ER for few hours. Discussed lab findings with the patient. Patient reassured and close follow-up with PCP recommended. Vital Signs: Vital signs: Vital Signs Temperature 98.3 F 12/29/22 16:58 Pulse Rate 98 12/29/22 16:58 Respiratory Rate 17 12/29/22 16:58 Blood Pressure 158/100 12/29/22 17:04 Pulse Oximetry 97 12/29/22 17:34 Oxygen Delivery Me thod Room Air 12/29/22 17:04 MDM - GI Bleed Medical Decision Making Patient was made comfortable emergency room. Blood work was obtained. Labs discussed with patient. She was reassured after discussing the lab findings with the patient. Differential Diagnosis Likely hemorrhoids, infectious diarrhea, gastritis, Trini-Bailey syndrome, Upper gastrointestinal hemorrhage, Lower gastrointestinal hemorrhage, hematochezia, melena and anal fissure Medical Records I reviewed the patient's medical records. Lab Data I reviewed the patient's lab results. 12/29/22 17:35 12/29/22 17:35 Laboratory Results WBC 9.6 10^3/uL (4.0-10.0) 12/29/22 17:35 RBC 4.67 10^6/uL (4.1-5.3) 12/29/22 17:35 Hgb 13.3 g/dL (11.5-15.3) 12/29/22 17:35 Hct 41.9 % (37.0-47.0) 12/29/22 17:35 MCV 89.7 fl (81-99) 12/29/22 17:35 MCH 28.5 pg (28.0-34.0) 12/29/22 17:35 MCHC 31.7 g/dL (30.0-36.0) 12/29/22 17:35 RDW 13.0 % (12.1-15.1) 12/29/22 17:35 Plt Count 206 10^3/cmm (130-400) 12/29/22 17:35 MPV 13.1 fL (7.4-10.4) H 12/29/22 17:35 Neut % (Auto) 58.8 % 12/29/22 17:35 Lymph % (Auto) 29.1 % 12/29/22 17:35 [place] % (Auto) 7.2 % 12/29/22 17:35 Eos % (Auto) 3.8 % 12/29/22 17:35 Baso % (Auto) 0.6 % 12/29/22 17:35 Neut # (Auto) 5.62 10^3/uL (1.8-7.7) 12/29/22 17:35 Lymph # (Auto) 2.8 10^3/uL (0.8-4.8) 12/29/22 17:35 [place] # (Auto) 0.7 10^3/uL (0.2-0.9) 12/29/22 17:35 Eos # (Auto) 0.4 10^3/uL (0.0-0.8) 12/29/22 17:35 Baso # (Auto) 0.1 10^3/uL (0.0-0.1) 12/29/22 17:35 Nucleated RBC % (auto) 0 % 12/29/22 17:35 Nucleated RBCs # 0.0 /100WBC 12/29/22 17:35 Sodium 140 mmol/L (136-145) 12/29/22 17:35 Potassium 3.8 mmol/L (3.5-5.1) 12/29/22 17:35 Chloride 107 mmol/L (98-107) 12/29/22 17:35 Carbon Dioxide 23 mmol/L (22-29) 12/29/22 17:35 Anion Gap 13.8 (5-19) 12/29/22 17:35 BUN 10 mg/dL (6-20) 12/29/22 17:35 Creatinine 0.5 mg/dL (0.5-0.9) 12/29/22 17:35 GFR Calculation 155.7 mL/min (90-130) H 12/29/22 17:35 Glucose 93 mg/dL (65-115) 12/29/22 17:35 Calculated Osmolality 289 mOsm/kg (285-295) 12/29/22 17:35 Calcium 8.5 mg/dL (8.5-10.5) 12/29/22 17:35 Total Bilirubin 0.2 mg/dL (0.15-1.2) 12/29/22 17:35 AST 14 U/L (0-32) 12/29/22 17:35 ALT 24 U/L (0-33) 12/29/22 17:35 Alkaline Phosphatase 62 U/L (35-105) 12/29/22 17:35 Total Protein 6.7 g/dL (6.6-8.7) 12/29/22 17:35 Albumin 4.3 g/dL (3.5-5.2) 12/29/22 17:35 Globulin 2.4 g/dL (1.3-4.6) 12/29/22 17:35 Discharge Plan Discharge Patient Disposition: Home Clinical Impression: Bright red rectal bleeding Condition: Stable Prescriptions: New Colace 100 mg capsule 100 mg PO BID Qty: 20 0RF No Action amoxicillin-pot clavulanate 875-125 mg tablet 1 tab PO Q12H Qty: 14 0RF norethindrone (contraceptive) 0.35 mg tablet 0.35 mg PO DAILY Qty: 84 0RF amitriptyline 25 mg tablet 25 mg PO DAILY cholecalciferol (vitamin D3) [Dialyvite Vitamin D] 125 mcg (5,000 unit) capsule 125 mcg PO DAILY Victoza 3-Vijay 0.6 mg/0.1 mL (18 mg/3 mL) pen injector See Rx Instructions SUBCUT DAILY 90 Days Qty: 27 1RF Rx Instructions: 1.2 daily for 1 week and then 1.8mg daily Discharge Orders: Discharge ED (Routine); Ordered 12/29/22 Ordered By: Garland Munoz Referrals: Fay Sommer DO [Primary Care Provider] - Patient Instructions: Opioid Safety, Pain Management Coding Level of Care Code ED 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
[2022-12-29 19:17] VITALS: BP 107/76; PULSE 90; RESP 14; O2SAT 99
== END 2022-12-29 19:21 | disposition home or self-care (01) ==
PROVIDERS: Emergency Provider Family Medicine; PCP Family Medicine
DX: K62.5 Hemorrhage of anus and rectum (principal)
CPT/HCPCS: 80053; 85025; 99283

== ENCOUNTER → 2022-12-30 16:17 | Outpatient (BNVA) | payer MEDICAID, SELFPAY | PROVIDERS: PCP Family Medicine; Visit Provider Family Medicine | DX: R10.9 Unspecified abdominal pain (principal); K62.5 Hemorrhage of anus and rectum | CPT/HCPCS: 80053; 82270; 83690; 85025 ==

== ENCOUNTER 2023-01-01 14:10 | Emergency (ER) | payer MEDICAID, SELFPAY ==
--- NOTE | 2023-01-01 16:03 | CTR_ITS ---
PROCEDURE INFORMATION: Exam: CT Abdomen And Pelvis With Contrast Exam date and time: 01/01/2023 4:59 PM Age: 22 years old Clinical indication: Abdominal pain; Generalized; Additional info: Abd pain, n/v/d, blood per rectum, colitis TECHNIQUE: Imaging protocol: Computed tomography of the abdomen and pelvis with contrast. Radiation optimization: All CT scans at this facility use at least one of these dose optimization techniques: automated exposure control; mA and/or kV adjustment per patient size (includes targeted exams where dose is matched to clinical indication); or iterative reconstruction. Contrast material: OMNI 350; Contrast volume: 100 ml; Contrast route: INTRAVENOUS (IV); REPORTING DATA: Count of CT and Cardiac NM exams in prior 12 months: This patient has received [address] and 0 known cardiac nuclear medicine studies in the 12 months prior to the current study. COMPARISON: CT abdomen pelvis w con* [id number] 08/25/2018 8:56 PM RADIATION DOSE METRICS: Total DLP (mGy-cm): 813 FINDINGS: Lungs: The visualized portions of the lung bases are normal. Liver: Mild fatty infiltration of the liver. No mass. Gallbladder and bile ducts: No calcified stones. No biliary ductal dilatation. Pancreas: Unremarkable CT appearance of the pancreatic parenchyma. No ductal dilatation. Spleen: Normal splenic parenchymal attenuation. No splenomegaly. Adrenal glands: Normal CT appearance of the adrenals. No mass. Kidneys and ureters: Normal renal contour. No mass seen. No hydronephrosis. Stomach and bowel: The noncontrast opacified stomach appears unremarkable. The noncontrast opacified small bowel loops appear unremarkable. The noncontrast opacified loops of colon show moderate constipation. No rectal wall thickening is seen on CT. The lack of orally administered contrast material limits assessment. Appendix: No CT evidence of appendicitis. Intraperitoneal space: No free air. No significant fluid collection. Vasculature: No abdominal aortic aneurysm. IVC and portal venous structures are unremarkable. Lymph nodes: No enlarged lymph nodes. Urinary bladder: No bladder wall thickening or debris. Reproductive: The uterus and right adnexal region appear normal. Left ovarian enhancing 1 x 1.7 cm lesion is seen, which may represent an involuting cyst. Recommend correlation with phase of gynecologic cycle. Bones/joints: No acute osseous abnormality seen. Soft tissues: Tiny umbilical hernia, containing peritoneal fat. CT/CT abdomen pelvis w con* [id number] IMPRESSION: 1. Moderate constipation. No colonic or rectal wall thickening seen on CT. Normal appendix. 2. Left ovarian enhancing 1 x 1.7 cm lesion, which may represent an involuting cyst. Recommend correlation with phase of gynecologic cycle.
--- NOTE | 2023-01-01 16:04 | W.ED.ABDPA2 ---
HPI - Abdominal Pain General: Chief Complaint: Abdominal Pain Stated Complaint: abd pain from colitis Time Seen by Provider: 01/01/23 15:51 History of Present Illness: Patient presents to the ER with complaints of nausea vomiting diarrhea and blood per rectum. Patient said this started about 3 days ago with bleeding in her stool x2. That she went to the ER where they did lab work and felt on her belly and sent her home. She went to her PCP the next day who diagnosed her with colitis and put her on Cipro and Flagyl. But the patient did not get filled till the next day which was yesterday. And patient is feeling worse today. The patient has had only 24 hours of Cipro and Flagyl. Patient has never had anything like this before and does not have a history of colitis. Review of Systems General: Reports: 10 or more systems reviewed and unremarkable except in HPI and below PFSH ED PFSH: Medical History Cellulitis of forearm, left Hand pain History of pre-eclampsia in prior , currently in first trimester Hospital discharge follow-up Hyperprolactinemia Pelvic pain Surgical History S/P breast biopsy Benign cyst - bilateral breasts Family History Father Seizures Hypertension Stroke Mother No problems noted. Grandmother Hypertension paternal Grandfather Hypertension paternal Diabetes paternal Family/Other Diabetes paternal uncle Stomach cancer maternal aunt Denies family history of Colon cancer Ovarian cancer Heart disease Hypercholesteremia Breast cancer Uterine cancer Thyroid disease Social History Smoking and tobacco status: never smoked Substance/Drug Use: never Physical Exam Const: COMMON NORMALS: no acute distress, average body habitus, patient oriented x3, no limitations, healthy appearing, alert and well nourished HENMT: COMMON NORMALS: normocephalic, atraumatic, hearing grossly normal bilaterally, external ears normal, Normal external nose present and moist oral mucous membranes HEAD & SCALP: normocephalic and atraumatic NOSE: Normal external nose present EXTERNAL EAR: Yes external ears normal Neck/C-Spine: COMMON NORMALS: no JVD Chest: COMMONS NORMALS: normal inspection of the chest and normal palpation of entire chest wall Resp: COMMON NORMALS: normal respiratory effort, No retractions, No use of accessory muscles and clear to auscultation bilaterally AUSCULTATION: clear to auscultation bilaterally Cardio: COMMON NORMALS: no JVD, regular rate, regular rhythm, S1 normal heart sound present, S2 normal heart sound present, No gallops present (Cardio), No clicks present (Cardio) and No rub (Cardio) RATE: regular rate RHYTHM: regular rhythm HEART SOUNDS: S1 normal heart sound present and S2 normal heart sound present GI: COMMON NORMALS: Normal to inspection, nondistended, normoactive bowel sounds present, Soft to palpation, No hepatosplenomegaly present and no masses PALPATION: Yes Soft to palpation, Yes Tenderness to palpation present (GI) (Diffusely) and Yes No hepatosplenomegaly present Neuro: COMMON NORMALS: patient oriented x3 SENSORIUM/ORIENTATION: Yes alert Course Vital Signs: Vital signs: Vital Signs Pulse Rate 87 01/01/23 16:46 Blood Pressure 124/107 01/01/23 16:46 Pulse Oximetry 94 01/01/23 16:46 MDM - Abdominal Pain Medical Decision Making Patient presents ER with complaints of abdominal pain. Patient is currently on dual therapy antibiotics for colitis with no relief after [address] scan did not show colitis but showed moderate constipation with also possible left ovarian cyst. Blood work was essentially benign. Patient will be discharged home with diagnosis of abdominal pain she is to finish her antibiotics previously prescribed her we will put her on some mild pain medicine in the interim. Patient should also take [id number] stool softener for relief of her constipation. Patient should follow-up with her family practice physician within 1 week or sooner as needed. Differential Diagnosis Likely abdominal pain; Unlikely acute appendicitis, calculus of kidney, constipation, diverticulitis, endometriosis, gastroenteritis, pancreatitis or small bowel obstruction Medical Records I reviewed the patient's medical records. Lab Data I reviewed the patient's lab results. 01/01/23 16:40 01/01/23 16:40 Labs/Radiology: Radiology Impressions Abdomen/Pelvis CT 01/01/23 16:03 IMPRESSION: 1. Moderate constipation. No colonic or rectal wall thickening seen on CT. Normal appendix. 2. Left ovarian enhancing 1 x 1.7 cm lesion, which may represent an involuting cyst. Recommend correlation with phase of gynecologic cycle. Laboratory Results WBC 11.8 10^3/uL (4.0-10.0) H 01/01/23 16:40 RBC 4.89 10^6/uL (4.1-5.3) 01/01/23 16:40 Hgb 14.0 g/dL (11.5-15.3) 01/01/23 16:40 Hct 43.9 % (37.0-47.0) 01/01/23 16:40 MCV 89.8 fl (81-99) 01/01/23 16:40 MCH 28.6 pg (28.0-34.0) 01/01/23 16:40 MCHC 31.9 g/dL (30.0-36.0) 01/01/23 16:40 RDW 13.2 % (12.1-15.1) 01/01/23 16:40 Plt Count 279 10^3/cmm (130-400) 01/01/23 16:40 MPV 13.7 fL (7.4-10.4) H 01/01/23 16:40 Neut % (Auto) 67.5 % 01/01/23 16:40 Lymph % (Auto) 22.2 % 01/01/23 16:40 [place] % (Auto) 6.3 % 01/01/23 16:40 Eos % (Auto) 2.8 % 01/01/23 16:40 Baso % (Auto) 0.6 % 01/01/23 16:40 Neut # (Auto) 7.98 10^3/uL (1.8-7.7) H 01/01/23 16:40 Lymph # (Auto) 2.6 10^3/uL (0.8-4.8) 01/01/23 16:40 [place] # (Auto) 0.7 10^3/uL (0.2-0.9) 01/01/23 16:40 Eos # (Auto) 0.3 10^3/uL (0.0-0.8) 01/01/23 16:40 Baso # (Auto) 0.1 10^3/uL (0.0-0.1) 01/01/23 16:40 Nucleated RBC % (auto) 0 % 01/01/23 16:40 Nucleated RBCs # 0.0 /100WBC 01/01/23 16:40 Sodium 137 mmol/L (136-145) 01/01/23 16:40 Potassium 3.7 mmol/L (3.5-5.1) 01/01/23 16:40 Chloride 105 mmol/L (98-107) 01/01/23 16:40 Carbon Dioxide 19 mmol/L (22-29) L 01/01/23 16:40 Anion Gap 16.7 (5-19) 01/01/23 16:40 BUN 10 mg/dL (6-20) 01/01/23 16:40 Creatinine 0.7 mg/dL (0.5-0.9) 01/01/23 16:40 GFR Calculation 105.6 mL/min (90-130) 01/01/23 16:40 Glucose 79 mg/dL (65-115) 01/01/23 16:40 Calculated Osmolality 282 mOsm/kg (285-295) L 01/01/23 16:40 Calcium 9.0 mg/dL (8.5-10.5) 01/01/23 16:40 Total Bilirubin 0.3 mg/dL (0.15-1.2) 01/01/23 16:40 AST 13 U/L (0-32) 01/01/23 16:40 ALT 27 U/L (0-33) 01/01/23 16:40 Alkaline Phosphatase 70 U/L (35-105) 01/01/23 16:40 Total Protein 7.4 g/dL (6.6-8.7) 01/01/23 16:40 Albumin 4.5 g/dL (3.5-5.2) 01/01/23 16:40 Globulin 2.9 g/dL (1.3-4.6) 01/01/23 16:40 Lipase 29 U/L (13-60) 01/01/23 16:40 HCG, Qual Negative (Negative) 01/01/23 16:25 Urine Color Yellow (Yellow) 01/01/23 16:25 Urine Appearance Cloudy (CLEAR) A 01/01/23 16:25 Urine pH 7 (5-7) 01/01/23 16:25 Ur Specific [place] 1.015 (1.005-1.030) 01/01/23 16:25 Urine Protein Neg (Negative) 01/01/23 16:25 Urine Glucose (UA) Norm (Normal) 01/01/23 16:25 Urine Ketones Negative (Negative) 01/01/23 16:25 Urine Blood Neg (Negative) 01/01/23 16:25 Urine Nitrate Negative (Negative) 01/01/23 16:25 Urine Bilirubin Neg (Negative) 01/01/23 16:25 Urine Urobilinogen Norm mg/dL (Negative) 01/01/23 16:25 Ur Leukocyte Esterase Negative (Negative) 01/01/23 16:25 Urine RBC Rare /hpf (0-2) 01/01/23 16:25 Urine WBC 0-4 /hpf (0-5) H 01/01/23 16:25 Ur Squamous Epith Cells 0-4 /hpf (0-5) H 01/01/23 16:25 Amorphous Sediment 3+ /hpf 01/01/23 16:25 Urine Bacteria Trace /hpf (NONE) 01/01/23 16:25 Urine Mucus R /hpf 01/01/23 16:25 Discharge Plan Discharge Patient Disposition: Home Clinical Impression: Acute abdominal pain Constipation Qualifiers: Constipation type: unspecified constipation type Qualified Code(s): K59.00 - Constipation, unspecified Condition: Stable Prescriptions: New meloxicam 7.5 mg tablet 7.5 mg PO BID PRN (Reason: pain) Qty: 14 0RF No Action metronidazole 500 mg tablet 500 mg PO TID 10 Days Qty: 30 0RF ciprofloxacin HCl 500 mg tablet 500 mg PO BID Qty: 20 0RF acetazolamide 250 mg tablet 250 mg PO QID Wegov[place] 0.25 mg/0.5 mL pen injector 0.25 mg SUBCUT Q7D Qty: 2 0RF Rx Instructions: 0.25mg weekly for 1 month; 0.50mg weekly for 1 month; then 1mg weekly and continue Wegovy 0.5 mg/0.5 mL pen injector 0.5 mg SUBCUT Q7D Qty: 2 0RF Rx Instructions: 0.25mg weekly for 1 month, 0.50mg weekly for 1 month; 1mg weekly Wegovy 1 mg/0.5 mL pen injector 1 mg SUBCUT Q7D Qty: 2 0RF Rx Instructions: 0.25mg weekly for 1 month, 0.50mg weekly for 1 month; 1mg weekly Discharge Orders: Discharge ED (Routine); Ordered 01/01/23 Ordered By: Keyshawn Sifuentes Referrals: Fay Sommer DO [Primary Care Provider] - 1 week Patient Instructions: Constipation (ED), Abdominal Pain (ED) Activity Restrictions/Additional Instructions: Please continue current antibiotics as previously prescribed. Please take pain medicine as directed. Please take [id number] stool softeners as needed for the next 3 to 4 days for constipation. Please follow-up with your family practice doctor within the next 1 week or sooner as needed. Coding Level of Care Code ED Need[employer] Goods Supervisor for Jesse Plunkett
[2023-01-01 16:41] LABS: HCG Qualitative Urine. Negative (Negative)
[2023-01-01 16:45] LABS: Specific Gravity, Urine 1.015 (1.005-1.030); Urine Appearance Cloudy (CLEAR); Urine Color Yellow (Yellow); pH Urine 7 (5-7)
[2023-01-01 16:46] VITALS: BP 124/107; PULSE 87; O2SAT 94
[2023-01-01 16:46] LABS: Add Urine Microscopic? YES; Bilirubin Urine Neg (Negative); Blood Urine Neg (Negative); Glucose Urine UA Norm (Normal); Ketones Urine Negative (Negative); Leukocyte Esterase Urine Negative (Negative); Nitrate Urine Negative (Negative); Protein Urine Neg (Negative); Urobilinogen Urine Norm (Negative)
[2023-01-01 16:50] LABS: Amorphous Sediment Urine 3+ /hpf; Bacteria Urine TRACE /hpf; Mucus Urine R /hpf; RBC Urine RARE /hpf (0-2); Squamous Epithelial Cell Urine 0-4 /hpf (0-5); WBC Urine 0-4 /hpf (0-5)
[2023-01-01 16:52] LABS: Add Urine Culture? No
[2023-01-01] MEDS: iohexol 350 mg/mL 500 mL Btl (per mL) IV (17:06)
[2023-01-01 17:25] LABS: Basophils # 0.1 10^3/uL (0.0-0.1); Basophils % 0.6 %; Eosinophils # 0.3 10^3/uL (0.0-0.8); Eosinophils % 2.8 %; Hematocrit 43.9 % (37.0-47.0); Lymphocytes # 2.6 10^3/uL (0.8-4.8); Lymphocytes % 22.2 %; Mean Corpuscular HGB Conc 31.9 g/dL (30.0-36.0); Mean Corpuscular Hemoglobin 28.6 pg (28.0-34.0); Mean Corpuscular Volume 89.8 fl (81-99); Mean Platelet Volume 13.7 fL (7.4-10.4); Monocytes # 0.7 10^3/uL (0.2-0.9); Monocytes % 6.3 %; Neutrophils # 7.98 10^3/uL (1.8-7.7); Neutrophils % 67.5 %; Nucleated Red Blood Cells % 0 %; Platelet Count 279 10^3/cmm (130-400); Red Blood Count 4.89 10^6/uL (4.1-5.3); Red Cell Distribution Width 13.2 % (12.1-15.1); White Blood Count 11.8 10^3/uL (4.0-10.0)
[2023-01-01 17:26] LABS: Alanine Aminotransferase 27 U/L (0-33); Albumin Level 4.5 g/dL (3.5-5.2); Alkaline Phosphatase 70 U/L (35-105); Anion Gap 16.7 (5-19); Aspartate Amino Transferase 13 U/L (0-32); Blood Urea Nitrogen 10 mg/dL (6-20); Carbon Dioxide 19 mmol/L (22-29); Chloride 105 mmol/L (98-107); Globulin 2.9 g/dL (1.3-4.6); Glomerular Filtration Rate 105.6 mL/min (90-130); Glucose 79 mg/dL (65-115); Lipase 29 U/L (13-60); Osmolality Calculated 282 mOsm/kg (285-295); Potassium 3.7 mmol/L (3.5-5.1); Sodium 137 mmol/L (136-145); Total Bilirubin 0.3 mg/dL (0.15-1.2); Total Protein 7.4 g/dL (6.6-8.7)
== END 2023-01-01 18:33 | disposition home or self-care (01) ==
PROVIDERS: Emergency Medicine; Emergency Provider Emergency Medicine; PCP Family Medicine
DX: R10.9 Unspecified abdominal pain (principal); K59.00 Constipation, unspecified
CPT/HCPCS: 74177; 80053; 81001; 81025; 83690; 85025; 99285; Q9967

== ENCOUNTER → 2023-01-07 14:46 | Outpatient (BNVA) | payer MEDICAID, SELFPAY | PROVIDERS: PCP Family Medicine; Visit Provider Obstetrics & Gynecology | DX: N92.6 Irregular menstruation, unspecified (principal) | CPT/HCPCS: 81025 ==

== ENCOUNTER → 2023-01-24 08:09 | Outpatient (BNVA) | payer MEDICAID, SELFPAY | PROVIDERS: PCP Family Medicine; Visit Provider Nurse Practitioner Women's Health | DX: Z34.90 Encounter for supervision of normal pregnancy, unspecified, unspecified trimester (principal) | CPT/HCPCS: 81000 ==

== ENCOUNTER 2023-01-26 08:47 | Emergency (ER) | payer MEDICAID, SELFPAY ==
[2023-01-26 08:57] VITALS: BP 125/105; PULSE 101; RESP 16; TEMP 36.8; O2SAT 100
--- NOTE | 2023-01-26 08:59 | USR_ITS ---
PROCEDURE INFORMATION: Exam: US , Limited Exam date and time: 01/26/2023 9:30 AM Age: 22 years old Clinical indication: Lmp or gestational age (in weeks): 6w; Antepartum complications; Bleeding; ; Additional info: 8-10wk with vaginal bleeding TECHNIQUE: Imaging protocol: Real-time ultrasound of the maternal uterus with image documentation. Exam focused on the clinical indication. COMPARISON: [place] [id number] 03/21/2022 11:22 AM FINDINGS: Gestation: Intrauterine gestational sac identified. heart rate: 136 bpm. Placenta: Unremarkable. No substantial subchorionic bleed. Amniotic fluid: Amniotic fluid/chorionic fluid is grossly appropriate for gestational age. BIOMETRY: Gestational age (AUA): The crown-rump length is 0.91 cm, corresponding to a gestational age of 6 weeks 6 days. MATERNAL: Uterus: Uterus measures 5.6 cm x 9.8 cm. Normal size, contour and echotexture. Right ovary/adnexa: The right ovary measures 3.2 x 1.6 x 3.3 cm. Arterial and venous flow are documented. No mass. Left ovary/adnexa: The left ovary measures 5.2 x 2.8 x 3.0 cm. Arterial and venous flow are documented. There appears to be a small left ovarian cyst as well as a small left paraovarian cyst. Intraperitoneal space: No free fluid in the pelvis. Urinary bladder: Normal as imaged. US/US OB limited [id number] IMPRESSION: Single viable intrauterine gestation with gestational age of 6 weeks 6 days by crown-rump length.
--- NOTE | 2023-01-26 09:00 | ED_ITS ---
HPI - General Adult General: Chief complaint: General Medical Stated complaint: early vaginal bleeding Time Seen by Provider: 01/26/23 08:52 History of Present Illness: Patient is a G3, P2 currently female comes to the ED with vaginal bleeding. Patient does not have the last date of her last menstrual period but thinks it was around the first week of November. Estimated 10 to 12 weeks gestation. Patient did not even know if she could get and was unaware she was until she took a test last week and it was positive. Yesterday patient says she started having some spotting and it continued to progress and now she is passing some clots. She denies bleeding through any pads and denies any heavy bleeding. She has some mild abdominal cramping. Denies any fevers or vomiting. She has a past medical history of idiopathic intracranial hypertensi on and is being referred to a maternal specialist in [place] to monitor her . Associated symptoms: Deny chest pain, dyspnea, headache(s), nausea, rash, palpitations or vomiting Review of Systems Const: Denies: fever(s), chills or fatigue Eyes: Denies: change in vision or eye discomfort ENMT: Denies: throat pain, odynophagia, nasal discharge or nasal congestion Card: Denies: chest pain, palpitations, edema, swelling of feet/ankles, dyspnea on exertion or orthopnea Resp: Denies: dyspnea, productive cough or non-productive cough GI: Denies: abdominal pain, nausea, vomiting, diarrhea, constipation or hematochezia : Reports: vaginal bleeding and pelvic pain (Mild cramping pain); Denies: flank pain, dysuria or hematuria Musc: Denies: neck pain, back pain or extremity swelling Skin/Breast: Denies: rash or new lesions Neuro: Denies: headache(s), numbness in extremities or weakness in extremities PFSH ED PFSH: Medical History (Updated 01/26/23 @ 11:23 by AVELINA Hairston) Colitis just finished abx 01/24/2023 Idiopathic intracranial hypertension (~07/2022) Kelsey at [facility]--neuro-opthamologist Terry Lugo at [facility] No pertinent past medical history neghx:dm,dvt/pe PCP: Dr Sommer Supervision of other high-risk Surgical History (Updated 01/24/23 @ 08:29 by Fay Zheng APN, WHNP) S/P breast biopsy Benign cyst - bilateral breasts Family History (Updated 01/24/23 @ 08:56 by Fay Zheng APN, MIGNON) Father Seizures Hypertension Stroke Mother No problems noted. Grandmother Hypertension paternal Grandfather Hypertension paternal Diabetes paternal Family/Other Diabetes paternal uncle Denies family history of Colon cancer Ovarian cancer Heart disease Hypercholesteremia Breast cancer Uterine cancer Thyroid disease Social History Smoking and tobacco status: never smoked Substance/Drug Use: never Physical Exam Const: COMMON NORMALS: no acute distress, patient oriented x3, healthy appearing and alert HENMT: COMMON NORMALS: normocephalic HEAD & SCALP: normocephalic MOUTH: Normal oral and palatal mucosa present THROAT: posterior oropharynx normal and uvula midline Neck/C-Spine: COMMON NORMALS: supple GENERAL: Yes normal visual inspection Resp: COMMON NORMALS: normal respiratory effort, No retractions, No use of accessory muscles and clear to auscultation bilaterally AUSCULTATION: clear to auscultation bilaterally Cardio: COMMON NORMALS: regular rate, regular rhythm, S1 normal heart sound present, S2 normal heart sound present, No gallops present (Cardio), No clicks present (Cardio), No murmurs present (Cardio) and Peripheral pulses 2+ th roughout RATE: regular rate RHYTHM: regular rhythm HEART SOUNDS: S1 normal heart sound present and S2 normal heart sound present PERIPHERAL PULSES: Peripheral pulses 2+ throughout GI: COMMON NORMALS: Normal to inspection, nondistended, normoactive bowel sounds present, Soft to palpation, non-tender and no masses PALPATION: Yes Soft to palpation : COMMON NORMALS: Yes no CVA tenderness BLADDER/KIDNEY EXAM: Yes no CVA tenderness Back/Pelvis: COMMON NORMALS: no CVA tenderness Extremity: COMMON NORMALS: normal to inspection Neuro: COMMON NORMALS: patient oriented x3 SENSORIUM/ORIENTATION: Yes alert GAIT: Yes Normal gait present Skin: GENERAL SKIN EXAM: dry skin Course Vital Signs: Vital signs: Vital Signs Temperature 98.2 F 01/26/23 08:57 Pulse Rate 101 H 01/26/23 08:57 Respiratory Rate 16 01/26/23 08:57 Blood Pressure 125/105 01/26/23 08:57 Pulse Oximetry 100 01/26/23 08:57 MDM - General Adult Medical Decision Making Patient is a G3, P2 currently female comes to the ED with vaginal bleeding. Patient does not have the last date of her last menstrual period but thinks it was around the first week of November. Estimated 10 to 12 weeks gestation. Patient did not even know if she could get and was unaware she was until she took a test last week and it was positive. Yesterday patient says she started having some spotting and it continued to progress and now she is passing some clots. She denies bleeding through any pads and denies any heavy bleeding. She has some mild abdominal cramping. Denies any fevers or vomiting. She has a past medical history of idiopathic intracranial hypertension and is being referred to a maternal specialist in [place] to monitor her . Vitals are stable. CBC and CMP are unremarkable. hCG quant 56,816. Urine shows signs of UTI. Ultrasound OB showed a single viable intrauterine with a gestation of 6 weeks and 6 days. Patient w as diagnosed with vaginal bleeding in and a UTI. She was discharged home with a prescription for an antibiotic. Told to follow-up with her OB at scheduled appointment or sooner if vaginal bleeding continues or worsens. She was given strict return to ED precautions. Patient understood and agreed with plan. Lab Data I reviewed the patient's lab results. 01/26/23 09:29 01/26/23 09:29 Radiology Impressions Obstetrics Ultrasound 01/26/23 08:59 IMPRESSION: Single viable intrauterine gestation with gestational age of 6 weeks 6 days by crown-rump length. Laboratory Results WBC 7.7 10^3/uL (4.0-10.0) 01/26/23 09:29 RBC 4.42 10^6/uL (4.1-5.3) 01/26/23 09:29 Hgb 12.3 g/dL (11.5-15.3) 01/26/23 09:29 Hct 39.7 % (37.0-47.0) 01/26/23 09:29 MCV 89.8 fl (81-99) 01/26/23 09:29 MCH 27.8 pg (28.0-34.0) L 01/26/23 09:29 MCHC 31.0 g/dL (30.0-36.0) 01/26/23 09: RDW 13.2 % (12.1-15.1) 01/26/23 09: Plt Count 188 10^3/cmm (130-400) 01/26/23 09:29 MPV 13.5 fL (7.4-10.4) H 01/26/23 09: Neut % (Auto) 66.2 % 01/26/23 09: Lymph % (Auto) 25.2 % 01/26/23 09:29 [place] % (Auto) 4.9 % 01/26/23 09: Eos % (Auto) 2.2 % 01/26/23 09: Baso % (Auto) 0.6 % 01/26/23 09: Neut # (Auto) 5.10 10^3/uL (1.8-7.7) 01/26/23 09: Lymph # (Auto) 1.9 10^3/uL (0.8-4.8) 01/26/23 09: [place] # (Auto) 0.4 10^3/uL (0.2-0.9) 01/26/23 09: Eos # (Auto) 0.2 10^3/uL (0.0-0.8) 01/26/23 09: Baso # (Auto) 0.1 10^3/uL (0.0-0.1) 01/26/23 09: Nucleated RBC % (auto) 0 % 01/26/23 09: Nucleated RBCs # 0.0 /100WBC 01/26/23 09: Sodium 136 mmol/L (136-145) 01/26/23 09: Potassium 3.6 mmol/L (3.5-5.1) 01/26/23 09: Chloride 105 mmol/L (98-107) 01/26/23 09: Carbon Dioxide 19 mmol/L (22-29) L 01/26/23 09: Anion Gap 15.6 (5-19) 01/26/23 09: BUN 7 mg/dL (6-20) 01/26/23 09: Creatinine 0.6 mg/dL (0.5-0.9) 01/26/23 09: GFR Calculation 126.2 mL/min (90-130) 01/26/23 09:29 Glucose 117 mg/dL (65-115) H 01/26/23 09:29 Calculated Osmolality 281 mOsm/kg (285-295) L 01/26/23 09:29 Calcium 8.5 mg/dL (8.5-10.5) 01/26/23 09: Total Bilirubin 0.3 mg/dL (0.15-1.2) 01/26/23 09: AST 13 U/L (0-32) 01/26/23 09: ALT 12 U/L (0-33) 01/26/23 09: Alkaline Phosphatase 51 U/L (35-105) 01/26/23 09: Total Protein 6.3 g/dL (6.6-8.7) L 01/26/23 09: Albumin 3.8 g/dL (3.5-5.2) 01/26/23 09: Globulin 2.5 g/dL (1.3-4.6) 01/26/23 09:29 Ser , Semi-Qnt 20040.00 mIU/mL 01/26/23 09:29 Urine Color Straw (Yellow) 01/26/23 10:20 Urine Appearance Sl hazy (CLEAR) A 01/26/23 10:20 Urine pH 7 (5-7) 01/26/23 10:20 Ur Specific [place] 1.010 (1.005-1.030) 01/26/23 10:20 Urine Protein Neg (Negative) 01/26/23 10:20 Urine Glucose (UA) Norm (Normal) 01/26/23 10:20 Urine Ketones Negative (Negative) 01/26/23 10:20 Urine Blood 3+ (Negative) H 01/26/23 10:20 Urine Nitrate Negative (Negative) 01/26/23 10:20 Urine Bilirubin Neg (Negative) 01/26/23 10:20 Urine Urobilinogen Norm mg/dL (Negative) 01/26/23 10:20 Ur Leukocyte Esterase 2+ (Negative) H 01/26/23 10:20 Urine RBC 10-15 /hpf (0-2) H 01/26/23 10:20 Urine WBC 25-40 /hpf (0-5) H 01/26/23 10:20 Ur Squamous Epith Cells 15-25 /hpf (0-5) H 01/26/23 10:20 Amorphous Sediment Not Reportable 01/26/23 10:20 Urine Bacteria 1+ /hpf (NONE) H 01/26/23 10:20 Discharge Plan Discharge Patient Disposition: Home Clinical Impression: Vaginal bleeding during UTI (urinary tract infection) Qualifiers: Urinary tract infection type: acute cystitis Hematuria presence: with hematuria Qualified Code(s): N30.01 - Acute cystitis with hematuria Condition: Stable Prescriptions: New nitrofurantoin macrocrystal 100 mg capsule 100 mg PO BID 7 Days Qty: 14 0RF Rx Instructions: must administer with a meal/food No Action Tylenol Ex Str Rapid Release 500 mg Tablet 500 mg PO Q6H PRN (Reason: Pain) Discharge Orders: Discharge ED (Routine); Ordered 01/26/23 Ordered By: Trent Overton Referrals: Fay Sommer DO [Primary Care Provider] - Discharge Diet: Regular Discharge Activity: Increase activity as tolerated Patient Instructions: Urinary Tract Infection in (ED) Activity Restrictions/Additional Instructions: Follow-up with your OB provider at your next scheduled appointment or sooner if possible. return to the ER or your medical provider if you start developing heavier vaginal bleeding, fevers, nausea/vomiting or worsening abdominal pain. Please read and understand discharge instructions. Thank you for choosing [facility] for your healthcare needs today. Please realize this is an emergency room and that we are providing you with a medical screening exam and this may not be complete and all inclusive of all the testing and or work up that you may need to determine your ailment or severity of your illness. It is very important that you follow up as instructed or that you return to the Emergency Department should you have concerns or if your condition changes or worsens in any way. Coding Level of Care Code ED Blender for Jesse Plunkett
--- NOTE | 2023-01-26 09:20 | PC.PHAR ---
PT STATES SHE IS ONLY TAKING TYLENOL PRN-PT STATES SHE HASNT TAKEN ACETAZOLAMIDE ER 500MG BID (LAST FILLED 12/05/22 30D/S)AND VICTOZA 0.6MG/0.1ML 1.8MG DAILY (RX FILLED 11/19/22 30D/S) FOR A FEW WEEKS-PT STATES SHE HASNT TAKEN LEVOTHYROXINE IN EXACTLY A MONTH TODAY-PT STATES NOT TAKEN PROPRAOLOL 20MG BID FILLED 08/26/22 30D/S OR IRON 325MG QD FILLED 07/15/22 90D/S FOR MONTHS-
[2023-01-26 09:49] LABS: Basophils # 0.1 10^3/uL (0.0-0.1); Basophils % 0.6 %; Eosinophils # 0.2 10^3/uL (0.0-0.8); Eosinophils % 2.2 %; Hematocrit 39.7 % (37.0-47.0); Hemoglobin 12.3 g/dL (11.5-15.3); Lymphocytes # 1.9 10^3/uL (0.8-4.8); Lymphocytes % 25.2 %; Mean Corpuscular Hemoglobin 27.8 pg (28.0-34.0); Mean Corpuscular Volume 89.8 fl (81-99); Mean Platelet Volume 13.5 fL (7.4-10.4); Monocytes # 0.4 10^3/uL (0.2-0.9); Monocytes % 4.9 %; Neutrophils % 66.2 %; Nucleated Red Blood Cells % 0 %; Platelet Count 188 10^3/cmm (130-400); Red Blood Count 4.42 10^6/uL (4.1-5.3); Red Cell Distribution Width 13.2 % (12.1-15.1); White Blood Count 7.7 10^3/uL (4.0-10.0)
[2023-01-26 10:15] LABS: Alanine Aminotransferase 12 U/L (0-33); Albumin Level 3.8 g/dL (3.5-5.2); Alkaline Phosphatase 51 U/L (35-105); Anion Gap 15.6 (5-19); Aspartate Amino Transferase 13 U/L (0-32); Blood Urea Nitrogen 7 mg/dL (6-20); Calcium 8.5 mg/dL (8.5-10.5); Carbon Dioxide 19 mmol/L (22-29); Chloride 105 mmol/L (98-107); Globulin 2.5 g/dL (1.3-4.6); Glomerular Filtration Rate 126.2 mL/min (90-130); Glucose 117 mg/dL (65-115); Osmolality Calculated 281 mOsm/kg (285-295); Potassium 3.6 mmol/L (3.5-5.1); Sodium 136 mmol/L (136-145); Total Bilirubin 0.3 mg/dL (0.15-1.2); Total Protein 6.3 g/dL (6.6-8.7)
[2023-01-26 10:58] LABS: Add Urine Microscopic? YES; Bilirubin Urine Neg (Negative); Blood Urine 3+ (Negative); Glucose Urine UA Norm (Normal); Ketones Urine Negative (Negative); Leukocyte Esterase Urine 2+ (Negative); Nitrate Urine Negative (Negative); Protein Urine Neg (Negative); Urine Appearance SL Hazy (CLEAR); Urine Color Straw (Yellow); Urobilinogen Urine Norm (Negative); pH Urine 7 (5-7)
[2023-01-26 10:59] LABS: Add Urine Culture? No; Bacteria Urine 1+ /hpf; Squamous Epithelial Cell Urine 15-25 /hpf (0-5); WBC Urine 25-40 /hpf (0-5)
== END 2023-01-26 11:33 | disposition home or self-care (01) ==
PROVIDERS: Emergency Provider Physician Assistant; PCP Family Medicine
DX: O46.91 Antepartum hemorrhage, unspecified, first trimester (principal); O23.41 Unspecified infection of urinary tract in pregnancy, first trimester; N39.0 Urinary tract infection, site not specified; Z3A.01 Less than 8 weeks gestation of pregnancy
CPT/HCPCS: 76815; 80053; 81001; 84702; 85025; 99284

== ENCOUNTER → 2023-01-30 09:49 | Outpatient (BNVA) | payer MEDICAID, SELFPAY | PROVIDERS: PCP Family Medicine; Visit Provider Nurse Practitioner Women's Health | DX: O09.899 Supervision of other high risk pregnancies, unspecified trimester (principal) | CPT/HCPCS: 87086 ==

== ENCOUNTER → 2023-02-04 08:20 | Outpatient (BNVA) | payer MEDICAID, SELFPAY | PROVIDERS: PCP Family Medicine; Visit Provider Obstetrics & Gynecology | DX: O09.899 Supervision of other high risk pregnancies, unspecified trimester (principal) | CPT/HCPCS: 80307; 81000; 87086 ==

== ENCOUNTER → 2023-02-18 08:03 | Outpatient (BNVA) | payer MEDICAID, SELFPAY | PROVIDERS: PCP Family Medicine; Visit Provider Obstetrics & Gynecology | DX: O09.899 Supervision of other high risk pregnancies, unspecified trimester (principal) | CPT/HCPCS: 81000; 82950; 85027; 86592; 86762; 86803; 86850; 86900; 87340; 87806 ==

== ENCOUNTER → 2023-03-04 08:40 | Outpatient (BNVA) | payer MEDICAID, SELFPAY | PROVIDERS: PCP Family Medicine; Visit Provider Obstetrics & Gynecology | DX: O09.899 Supervision of other high risk pregnancies, unspecified trimester (principal) | CPT/HCPCS: 81000 ==

== ENCOUNTER → 2023-03-25 10:26 | Outpatient (BNVA) | payer MEDICAID, SELFPAY | PROVIDERS: PCP Family Medicine; Visit Provider Obstetrics & Gynecology | DX: O09.899 Supervision of other high risk pregnancies, unspecified trimester (principal) | CPT/HCPCS: 81000 ==

== ENCOUNTER → 2023-04-01 15:53 | Outpatient (BNVA) | payer MEDICAID, SELFPAY | PROVIDERS: PCP Family Medicine; Visit Provider Obstetrics & Gynecology | DX: O09.899 Supervision of other high risk pregnancies, unspecified trimester (principal); Z3A.00 Weeks of gestation of pregnancy not specified | CPT/HCPCS: 81000 ==

== ENCOUNTER → 2023-04-09 08:28 | Outpatient (BNVA) | payer MEDICAID, SELFPAY | PROVIDERS: PCP Family Medicine; Visit Provider Obstetrics & Gynecology | DX: O09.899 Supervision of other high risk pregnancies, unspecified trimester (principal); Z3A.17 17 weeks gestation of pregnancy | CPT/HCPCS: 76815 ==

== ENCOUNTER → 2023-04-21 09:00 | Outpatient (BNVA) | payer MEDICAID, SELFPAY | PROVIDERS: PCP Family Medicine; Visit Provider Obstetrics & Gynecology | DX: R30.0 Dysuria (principal) | CPT/HCPCS: 81000; 87086 ==

== ENCOUNTER → 2023-04-30 12:45 | Outpatient (BNVA) | payer MEDICAID, SELFPAY | PROVIDERS: PCP Family Medicine; Visit Provider Obstetrics & Gynecology | DX: O09.899 Supervision of other high risk pregnancies, unspecified trimester (principal); Z3A.20 20 weeks gestation of pregnancy | CPT/HCPCS: 81000; 87491; 87591 ==

== ENCOUNTER 2023-05-01 08:02 | Outpatient (CLI) | payer MEDICAID, SELFPAY ==
--- NOTE | 2023-05-01 08:10 | US_ITS ---
WS: [id number] ULTRASOUND BREAST RIGHT TECHNIQUE: Ultrasound right breast focused area of concern. CLINICAL INFORMATION: O92.29 - Other disorders of breast associated with pregna... COMPARISON: Ultrasound 2019 FINDINGS: Ultrasound RIGHT breast at the 9 o'clock position in the area of patient concern 4 cm from the nipple . Hypoechoic ovoid nodule measuring 1.2 x 1.2 x 0.9 cm. This is similar in appearance to the previous ly described lesions in 2019 that were resected. 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 This could be biopsied under ultrasound guidance if desired. Previously described 7:00 lesion is no longer present and was reportedly resected. There is a similar -appearing lesion at the 6 o'clock position measuring 1.0 x 0.6 cm 1 cm from the nipple. IMPRESSION: BI-RADS 2 benign US/US breast RT complete [id number] FOLLOW-UP: Recommend annual screening mammography age 40 Palpable ovoid lesion at the 9 o'clock position could be biopsied under ultraso und guidance versus surgical resection if desired.
== END 2023-05-01 08:03 | disposition home or self-care (01) ==
PROVIDERS: PCP Family Medicine; Visit Provider Obstetrics & Gynecology
DX: N64.4 Mastodynia (principal); O92.29 Other disorders of breast associated with pregnancy and the puerperium; Z3A.00 Weeks of gestation of pregnancy not specified
CPT/HCPCS: 76641

== ENCOUNTER → 2023-05-06 08:00 | Outpatient (BNVA) | payer MEDICAID, SELFPAY | PROVIDERS: PCP Family Medicine; Visit Provider Obstetrics & Gynecology | DX: O09.899 Supervision of other high risk pregnancies, unspecified trimester (principal); E03.9 Hypothyroidism, unspecified; Z3A.00 Weeks of gestation of pregnancy not specified | CPT/HCPCS: 84439; 84443; 87491; 87591 ==

== ENCOUNTER 2023-05-07 10:23 | Emergency (ER) | payer MEDICAID, SELFPAY ==
[2023-05-07 10:28] VITALS: BP 130/90; PULSE 87; RESP 20; O2SAT 100; BMI 33.6
--- NOTE | 2023-05-07 10:31 | ECG_ITS ---
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 Measurements Intervals [place] Rate: 78 P: 6 TX: 151 QRS: 11 QRSD: 96 T: 6 QT: 363 QTc: 415 Interpretive Statements SINUS RHYTHM WITH SINUS ARRHYTHMIA No previous ECG available for comparison Electronically Signed On 05-07-2023 19:07:52 CDT by Abrahan Dobbs M.D. [email or web address]
[2023-05-07 10:33] VITALS: BP 137/94
--- NOTE | 2023-05-07 10:42 | ED_ITS ---
HPI - Chest Pain General: Chief Complaint: Chest Pain Stated Complaint: chest pain sob 22 weeks preg Time Seen by Provider: 05/07/23 10:25 Source: patient Mode of arrival: ambulatory Limitations: no limitations History of Present Illness: 23-year-old female who is currently 22 weeks is G3, P2. She states that she is have ongoing headache for the last 2 to 3 weeks states she is felt like she had some visual disturbances she does have a history of intracranial hypertension. She states that she has had some slight chest pain as well she checked her blood pressure this morning it was in the 140s blood pressure currently is 137/94. She has had preeclampsia with previous pregnancies. Associated symptoms: Deny abdominal pain, dyspnea, fever(s), nausea or vomiting Review of Systems Const: Denies: fever(s), chills, body aches or change in appetite Eyes: Denies: eye discomfort ENMT: Denies: throat pain or dental pain Card: Reports: chest pain Resp: Denies: dyspnea GI: Denies: abdominal pain, nausea, vomiting or diarrhea : Denies: dysuria Musc: Denies: neck pain or back pain Skin/Breast: Denies: rash Neuro: Reports: headache(s) PFSH ED PFSH: Medical History Colitis just finished abx 01/24/2023 Idiopathic intracranial hypertension (~07/2022) Kelsey at [facility]--neuro-opthamologist Terry Lugo at [facility] No pertinent past medical history neghx:dm,dvt/pe PCP: Dr Sommer Supervision of other high-risk Surgical History S/P breast biopsy Benign cyst - bilateral breasts Family History Father Seizures Hypertension Stroke Mother No problems noted. Grandmother Hypertension paternal Grandfather Hypertension paternal Diabetes paternal Family/Other Diabetes paternal uncle Denies family history of Colon cancer Ovarian cancer Heart disease Hypercholesteremia Breast cancer Uterine cancer Thyroid disease Social History Smoking and tobacco/nicotine status: never used tobacco/nicotine Substance/Drug Use: never Physical Exam Const: COMMON NORMALS: no acute distress, patient oriented x3 and healthy appearing HENMT: COMMON NORMALS: normocephalic and atraumatic HEAD & SCALP: normocephalic and atraumatic Eye: COMMON NORMALS: Equal, round and reactive pupils present and EOMs intact bilaterally PUPIL: Yes Equal, round and reactive pupils present Neck/C-Spine: COMMON NORMALS: full ROM and supple Chest: COMMONS NORMALS: normal inspection of the chest Resp: COMMON NORMALS: normal respiratory effort and clear to auscultation bilaterally AUSCULTATION: clear to auscultation bilaterally Cardio: COMMON NORMALS: regular rate, regular rhythm and No murmurs present (Cardio) RATE: regular rate RHYTHM: regular rhythm GI: COMMON NORMALS: Normal to inspection, nondistended, normoactive bowel sounds present, Soft to palpation, non-tender and no masses PALPATION: Yes Soft to palpation Extremity: COMMON NORMALS: normal to inspection and full ROM Neuro: COMMON NORMALS: patient oriented x3, moves all extremities and no focal motor deficits Psych: COMMON NORMALS: mental status grossly normal, Normal thought process present and cooperative THOUGHT PROCESS: Normal thought process present Skin: COMMON NORMALS: no rashes or lesions noted and no wounds GENERAL SKIN EXAM: no rashes or lesions noted Course Vital Signs: Vital signs: Vital Signs Pulse Rate 87 05/07/23 10:28 Respiratory Rate 20 H 05/07/23 10:28 Blood Pressure 137/94 05/07/23 10:43 Pulse Oximetry 100 05/07/23 10:28 Oxygen Delivery Me thod Room Air 05/07/23 10:28 MDM - Chest Pain Medical Decision Making Patient presents here with headache chest pain along with hypertension she is 22 weeks she does have a history of preeclampsia with previous has spoke to Dr. Lopez OB and will discharge patient to labor and delivery at this time for preeclamptic work-up Medical Records I reviewed the patient's medical records. Lab Data I reviewed the patient's lab results. No radiology studies performed this visit EKG Data EKG 1: I personally reviewed and interpreted this EKG as follows: EKG interpretation date: 05/07/23 EKG interpretation time: 10:31 Interpretation: nsr hr [address] or t wave abnormalities qrs 96 qtc 396 Discharge Plan Discharge Patient Disposition: Home Clinical Impression: Hypertension affecting , Chest pain, Headache Condition: Stable Prescriptions: No Action Gummies 400 mcg-35 mg- 25 mg-5 mg tablet,chewable PO DAILY phenazopyridine [Pyridium] 100 mg tablet 100 mg PO TID PRN (Reason: pain) Qty: 90 2RF acetazolamide 500 mg capsule, extended release 1,000 mg PO DAILY ondansetron HCl 4 mg tablet 4 mg PO Q8H PRN (Reason: nausea and vomiting) Qty: 30 2RF [id number] [Fioricet] 50-300-40 mg capsule 1 cap PO Q8H PRN (Reason: pain) Qty: 30 1RF metronidazole [Metrogel] 1 % gel 1 applic topical DAILY Qty: 60 1RF Rx Instructions: Apply once daily for 5 days Tylenol Ex Str Rapid Release 500 mg Tablet 500 mg PO Q6H PRN (Reason: Pain) Discharge Orders: Discharge ED (Routine); Ordered 05/07/23 Ordered By: Jeramie Duvall Referrals: Fay Sommer DO [Primary Care Provider] - Discharge Diet: Advance as tolerated Discharge Activity: Resume usual activity Patient Instructions: Hypertension During (ED) Coding Level of Care Code ED Trophy Assembler for Jesse Plunkett
[2023-05-07 10:43] VITALS: BP 137/94
== END 2023-05-07 10:47 | disposition home or self-care (01) ==
PROVIDERS: Emergency Provider Emergency Medicine; PCP Family Medicine
DX: O16.2 Unspecified maternal hypertension, second trimester (principal); O26.892 Other specified pregnancy related conditions, second trimester; R07.9 Chest pain, unspecified; R51.9 Headache, unspecified; Z3A.22 22 weeks gestation of pregnancy
CPT/HCPCS: 93005; 99283

== ENCOUNTER 2023-05-07 10:52 | Outpatient (CLI) | payer MEDICAID, SELFPAY ==
[2023-05-07] VITALS (11 sets, daily range): BP systolic 106–127; BP diastolic 51–78; PULSE 62–215; O2SAT 83–100; BMI 33.6
--- NOTE | 2023-05-07 11:28 | US_ITS ---
WS: [id number] LIMITED OBSTETRICAL ULTRASOUND HISTORY: Chest Pain; SOB COMPARISON: 04/09/2023 and 01/26/2023 Presentation: Vertex. Cervix: Closed and normal length. Prominent mucous plug. Placenta: Posterior, no previa or abruption. Placenta ends 5 cm from the cervical os. Grade: 1 HEART: FHR of 153 BPM. measurements: BPD = 5.0 cm = 21w0d; 31% HC = 19.2 cm = 21w3d; 42% AC = 15.9 cm = 21w0d; 29% FL = 3.8 cm = 22w1d; 67% RAJ: 15.5 cm EFW: 430 g; 48% AGA by ultrasound: 21w3d GEMA by ultrasound: 09/14/2023 IMPRESSION: 1. Single intrauterine gestation of 21 weeks 3 days with an EDC of 09/14/2023. Appropriate growth sinc e the first trimester ultrasound. 2. Normal amniotic fluid. 3. No growth asymmetry. Estimated weight at the 48th percentile.
[2023-05-07 11:39] LABS: Basophils # 0.1 10^3/uL (0.0-0.1); Basophils % 0.6 %; Eosinophils # 0.1 10^3/uL (0.0-0.8); Eosinophils % 1.1 %; Hematocrit 37.9 % (36-47); Lymphocytes # 2.2 10^3/uL (0.8-4.8); Lymphocytes % 20.8 %; Mean Corpuscular HGB Conc 31.9 g/dL (30-55); Mean Corpuscular Hemoglobin 27.6 pg (27-33); Mean Corpuscular Volume 86.5 fl (85-98); Monocytes # 0.6 10^3/uL (0.2-0.9); Monocytes % 5.5 %; Neutrophils # 7.07 10^3/uL (1.8-7.7); Neutrophils % 68.3 %; Nucleated Red Blood Cells % 0 %; Platelet Count 186 10^3/cmm (157-399); Red Blood Count 4.38 10^6/uL (3.85-5.65); White Blood Count 10.34 10^3/uL (3.29-11.43)
[2023-05-07 11:59] LABS: Alanine Aminotransferase 8 U/L (0-33); Albumin Level 3.9 g/dL (3.5-5.2); Alkaline Phosphatase 54 U/L (35-105); Anion Gap 16.4 (5-19); Aspartate Amino Transferase 7 U/L (0-32); Blood Urea Nitrogen 7 mg/dL (6-20); Calcium 8.7 mg/dL (8.5-10.5); Carbon Dioxide 16 mmol/L (22-29); Chloride 112 mmol/L (98-107); Globulin 2.5 g/dL (1.3-4.6); Glomerular Filtration Rate 154.3 mL/min (90-130); Glucose 88 mg/dL (65-115); Osmolality Calculated 289 mOsm/kg (285-295); Potassium 3.4 mmol/L (3.5-5.1); Sodium 141 mmol/L (136-145); Total Bilirubin 0.2 mg/dL (0.15-1.2); Total Protein 6.4 g/dL (6.6-8.7); Uric Acid 3.3 mg/dL (2.4-5.7)
[2023-05-07 12:03] LABS: Urine Appearance Cloudy (CLEAR); Urine Color Yellow (Yellow); pH Urine 8 (5-7)
[2023-05-07 12:04] LABS: Add Urine Microscopic? YES; Bilirubin Urine Neg (Negative); Blood Urine Neg (Negative); Glucose Urine UA Norm (Normal); Ketones Urine Negative (Negative); Leukocyte Esterase Urine 2+ (Negative); Nitrate Urine Negative (Negative); Protein Urine Neg (Negative); Sulfosalicylic Acid Urine Negative (Negative); Urobilinogen Urine Norm (Negative)
[2023-05-07 12:08] LABS: Amorphous Sediment Urine 2+ /hpf; Amphetamines Screen Urine Negative (Negative); Bacteria Urine 1+ /hpf; Barbiturates Screen Urine Negative (Negative); Benzodiazepines Screen Urine Negative (Negative); Cocaine Screen Urine Negative (Negative); Mucus Urine 2+ /hpf; Opiate Screen Urine Negative (Negative); PCP Screen Urine Negative (Negative); RBC Urine 0-4 /hpf (0-2); THC Screen Urine Negative (Negative); WBC Urine 15-25 /hpf (0-5)
[2023-05-07 12:09] LABS: Add Urine Culture? Yes
[2023-05-07 12:20] LABS: Urine Creatinine 84 mg/dL (28-217); Urine Protein Random 8 mg/dL
[2023-05-07 12:28] LABS: Slide Review Slide Review Perform
== END 2023-05-07 13:05 | disposition home or self-care (01) ==
LOC: OPOB 11:03 → OBGYN 11:06
PROVIDERS: PCP Family Medicine; Visit Provider Obstetrics & Gynecology
DX: O26.899 Other specified pregnancy related conditions, unspecified trimester (principal); Z3A.00 Weeks of gestation of pregnancy not specified; R07.9 Chest pain, unspecified; R06.02 Shortness of breath
CPT/HCPCS: 36415; 59025; 76815; 80053; 80306; 81001; 82570; 84156; 84550; 85025; 87086; 99211

== ENCOUNTER → 2023-05-22 07:49 | Outpatient (BNVA) | payer MEDICAID, SELFPAY | PROVIDERS: PCP Family Medicine; Visit Provider Obstetrics & Gynecology | DX: O09.892 Supervision of other high risk pregnancies, second trimester (principal); Z36.2 Encounter for other antenatal screening follow-up; Z3A.23 23 weeks gestation of pregnancy | CPT/HCPCS: 76816; 81000 ==

== ENCOUNTER → 2023-06-02 10:50 | Outpatient (BNVA) | payer MEDICAID, SELFPAY | PROVIDERS: PCP Family Medicine; Visit Provider Obstetrics & Gynecology | DX: O09.899 Supervision of other high risk pregnancies, unspecified trimester (principal) | CPT/HCPCS: 81000; 82950 ==

== ENCOUNTER 2023-06-07 21:22 | Outpatient (CLI) | payer MEDICAID, SELFPAY ==
[2023-06-07] VITALS (11 sets, daily range): BP systolic 115–131; BP diastolic 57–72; PULSE 71–88; RESP 16; TEMP 35.8; BMI 36.3
[2023-06-07 22:28] LABS: Basophils # 0.1 10^3/uL (0.0-0.1); Basophils % 0.4 %; Eosinophils # 0.2 10^3/uL (0.0-0.8); Eosinophils % 1.6 %; Hematocrit 30.4 % (36-47); Lymphocytes # 2.7 10^3/uL (0.8-4.8); Lymphocytes % 23.3 %; Mean Corpuscular HGB Conc 31.9 g/dL (30-55); Mean Corpuscular Hemoglobin 27.2 pg (27-33); Mean Corpuscular Volume 85.2 fl (85-98); Mean Platelet Volume 13.4 fL (7.4-10.4); Monocytes # 0.9 10^3/uL (0.2-0.9); Monocytes % 7.3 %; Neutrophils # 7.53 10^3/uL (1.8-7.7); Nucleated Red Blood Cells % 0 %; Platelet Count 179 10^3/cmm (157-399); Red Blood Count 3.57 10^6/uL (3.85-5.65); Red Cell Distribution Width 14.2 % (12.1-15.1); White Blood Count 11.59 10^3/uL (3.29-11.43)
[2023-06-07 22:44] LABS: Alanine Aminotransferase 8 U/L (0-33); Albumin Level 3.4 g/dL (3.5-5.2); Alkaline Phosphatase 57 U/L (35-105); Anion Gap 14.4 (5-19); Aspartate Amino Transferase 10 U/L (0-32); Blood Urea Nitrogen 8 mg/dL (6-20); Calcium 8.4 mg/dL (8.5-10.5); Carbon Dioxide 20 mmol/L (22-29); Chloride 110 mmol/L (98-107); Globulin 2.6 g/dL (1.3-4.6); Glomerular Filtration Rate 199.6 mL/min (90-130); Glucose 98 mg/dL (65-115); Osmolality Calculated 290 mOsm/kg (285-295); Potassium 3.4 mmol/L (3.5-5.1); Sodium 141 mmol/L (136-145); Total Bilirubin 0.2 mg/dL (0.15-1.2); Uric Acid 3.1 mg/dL (2.4-5.7)
[2023-06-07 22:50] LABS: Urine Creatinine 149 mg/dL (28-217); Urine Protein Random 13 mg/dL
[2023-06-07 22:51] LABS: UPRO/UCREAT Ratio 0.09 mg/mg CR
[2023-06-07 23:05] LABS: Add Urine Microscopic? YES; Bacteria Urine 1+ /hpf; Bilirubin Urine Neg (Negative); Blood Urine Neg (Negative); Glucose Urine UA Norm (Normal); Ketones Urine Negative (Negative); Leukocyte Esterase Urine 2+ (Negative); Nitrate Urine Negative (Negative); Protein Urine Neg (Negative); RBC Urine 0-4 /hpf (0-2); Specific Gravity, Urine 1.025 (1.005-1.030); Urine Appearance Hazy (CLEAR); Urine Color Yellow (Yellow); Urobilinogen Urine Neg (Negative); WBC Urine 0-4 /hpf (0-5); pH Urine 5 (5-7)
[2023-06-07 23:06] LABS: Add Urine Culture? No; Amorphous Sediment Urine 1+ /hpf
[2023-06-07 23:18] LABS: Slide Review Slide Review Perform
== END 2023-06-07 23:35 | disposition home or self-care (01) ==
LOC: OPOB 21:22 → OBGYN 21:23
PROVIDERS: PCP Family Medicine; Visit Provider Obstetrics & Gynecology
DX: O16.9 Unspecified maternal hypertension, unspecified trimester (principal); R07.9 Chest pain, unspecified
CPT/HCPCS: 36415; 80053; 81001; 82570; 84156; 84550; 85025; 99211

== ENCOUNTER 2023-06-19 11:59 | Outpatient (CLI) | payer MEDICAID, SELFPAY ==
[2023-06-19] VITALS (14 sets, daily range): BP systolic 114–140; BP diastolic 59–83; PULSE 77–91; RESP 17; BMI 37.5
[2023-06-19 13:23] LABS: Add Urine Microscopic? YES; Bilirubin Urine Neg (Negative); Blood Urine Neg (Negative); Glucose Urine UA Norm (Normal); Ketones Urine Negative (Negative); Leukocyte Esterase Urine 1+ (Negative); Nitrate Urine Negative (Negative); Protein Urine Neg (Negative); Specific Gravity, Urine 1.015 (1.005-1.030); Urine Appearance Hazy (CLEAR); Urine Color Yellow (Yellow); Urobilinogen Urine Neg (Negative); pH Urine 7 (5-7)
[2023-06-19 13:24] LABS: Add Urine Culture? No; Amorphous Sediment Urine 1+ /hpf; Bacteria Urine 3+ /hpf; Coarse Granular Casts Urine RARE /lpf; Hyaline Casts Urine RARE /lpf; Mucus Urine TRACE /hpf; RBC Urine 0-4 /hpf (0-2); Squamous Epithelial Cell Urine 15-25 /hpf (0-5)
[2023-06-19 13:29] LABS: Urine Creatinine 71 mg/dL (28-217); Urine Protein Random 7 mg/dL
[2023-06-19 13:37] LABS: Basophils # 0.1 10^3/uL (0.0-0.1); Basophils % 0.6 %; Eosinophils # 0.1 10^3/uL (0.0-0.8); Eosinophils % 1.4 %; Hematocrit 33.8 % (36-47); Lymphocytes # 1.8 10^3/uL (0.8-4.8); Lymphocytes % 18.5 %; Mean Corpuscular HGB Conc 31.4 g/dL (30-55); Mean Corpuscular Hemoglobin 26.6 pg (27-33); Mean Corpuscular Volume 84.9 fl (85-98); Mean Platelet Volume 13.3 fL (7.4-10.4); Monocytes # 0.8 10^3/uL (0.2-0.9); Monocytes % 7.7 %; Neutrophils # 6.66 10^3/uL (1.8-7.7); Neutrophils % 68.4 %; Nucleated Red Blood Cells % 0 %; Platelet Count 175 10^3/cmm (157-399); Red Blood Count 3.98 10^6/uL (3.85-5.65); Red Cell Distribution Width 14.1 % (12.1-15.1); White Blood Count 9.74 10^3/uL (3.29-11.43)
[2023-06-19 14:00] LABS: Alanine Aminotransferase 6 U/L (0-33); Albumin Level 3.5 g/dL (3.5-5.2); Alkaline Phosphatase 69 U/L (35-105); Anion Gap 16.1 (5-19); Aspartate Amino Transferase 13 U/L (0-32); Blood Urea Nitrogen 8 mg/dL (6-20); Calcium 8.9 mg/dL (8.5-10.5); Carbon Dioxide 24 mmol/L (22-29); Chloride 104 mmol/L (98-107); Globulin 2.7 g/dL (1.3-4.6); Glomerular Filtration Rate 199.6 mL/min (90-130); Glucose 120 mg/dL (65-115); Osmolality Calculated 290 mOsm/kg (285-295); Potassium 4.1 mmol/L (3.5-5.1); Sodium 140 mmol/L (136-145); Total Bilirubin 0.2 mg/dL (0.15-1.2); Total Protein 6.2 g/dL (6.6-8.7); Uric Acid 2.8 mg/dL (2.4-5.7)
--- NOTE | 2023-06-19 14:25 | US_ITS ---
WS: [id number] ULTRASOUND OB FOCUSED HISTORY: increased blood pressure COMPARISON: 05/22/2023 Breech position. Cervix is closed. heart rate at 141 BPM. Normal amniotic fluid. Amniotic fluid index at 15.1 cm. Placenta is fundal. No previa or abruption. IMPRESSION: 1. Normal fundal placenta. No abruption. 2. Normal cardiac activity. 3. Normal amniotic fluid.
--- NOTE | 2023-06-19 15:51 | P.CONIM_ITS ---
Providers/Reason For Consult 2 Consulting Physician/Specialty*: Dr. Lopez Reason for Consult*: Visual and auditory loss Attending Physician: Adryan Lopez MD Primary Care Provider: Fay Sommer DO History of Present Illness History of Present Illness Delfina Oleary is a 23 year old female seen stat in labor and delivery for altered neurologic state. Dr. Lopez called me because the patient is unable to see clearly out of her left eye since this morning and she has lost hearing in her left ear. She has had continuous headaches for the last several months. Her headaches are severe, throbbing and pounding. I saw her 07/25/2022 for severe headaches that started after the of her daughter in March 2022. Her pain was throbbing, holocephalic, nauseating and sometimes causing vomiting. She had bilateral blurred vision, lightheadedness, photophobia and phonophobia. 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 Her previous was complicated by preeclampsia. While she was in October 2021 she had a terrible headache, worst of her life, accompanied by left-sided weakness. On my examination that day I did a careful funduscopic exam and found normal disc margins with normal venous pulsations, no sign of papilledema. I started her on amitriptyline and she was unable to come for her appointment a month later in August 2022 and I have not seen her since then. She came to the ER with a syncopal episode 09/05/2022 and was referred back to my office but did not make an appointment. She believes it was in October that she attended an eye appointment at [facility] and was discovered to have papilledema. She was referred to Dr. Soriano who arranged for her to have a lumbar puncture performed at the surgery center. She does not know the results. She was referred to an customer service receptionist at [facility], Rebecca Garcia MD, who has been seeing her at 2 to 4-week intervals. An MRV was ordered but she was not able to travel to the appointment and she was doing better at the time that that was scheduled. She continued to have severe headaches and a very high blood pressure with concern for preeclampsia. She was on Diamox 500 mg twice daily and on her June 18 appointment, Dr. Garcia increased Diamox 1500 mg a day. Her headaches have continued unabated. Its only been a day since she increased her Diamox. The last time she had her eyes checked by Dr. Soriano her pressure was down. Review of Systems 2 Const: Denies: fever(s), change in weight or fatigue Eyes: Reports: change in vision, blurry vision, blind spots and photophobia; Denies: eye discomfort, seeing flashes or other (Glaucoma) ENMT: Reports: change in hearing and tinnitus; Denies: hoarseness, sinus pain or other (Loss of taste/smell) Card: Denies: chest pain, palpitations, syncope or other (Calf cramps) Resp: Denies: dyspnea, non-productive cough, wheezing or hemoptysis GI: Denies: abdominal pain, nausea, heartburn, diarrhea, constipation or hematochezia : Denies: urinary frequency or urinary incontinence Musc: Denies: neck pain, muscle weakness or other (Muscle pain) Skin/Breast: Denies: rash, new lesions or breast mass Neuro: Reports: headache(s) and other (Sleep Apnea); Denies: weakness in extremities, sensory changes, difficulty walking, Slurred speech present or seizure-like activity Psych: Reports: difficulty concentrating; Denies: depression, irritability, memory loss or other (Personality changes) Endo: Denies: polyuria, polydipsia, excessive sweating or change in body appearance Jaciel/Lymph: Denies: easy bruising, easy bleeding or enlarged lymph nodes Medications/Allergies Home Medications Medication Instructions Recorded Confirmed Last Taken Type acetazolamide 500 mg 1,000 mg PO BID 03/25/23 06/07/23 06/07/23 History capsule,extended release aspirin 81 mg capsule 81 mg PO DAILY 06/07/23 06/07/23 06/07/23 History Allergies Allergy/AdvReac Type Severity Reaction Status Date / Time adhesive tape Allergy burning Verified 06/07/23 22:27 skin, rash flare up PFSH Acute 2 PFSH: Medical History Colitis just finished abx 01/24/2023 Idiopathic intracranial hypertension (~07/2022) Kelsey at [facility]--neuro-opthamologist Terry Lugo at [facility] No pertinent past medical history neghx:dm,dvt/pe PCP: Dr Sommer Supervision of other high-risk Surgical History S/P breast biopsy Benign cyst - bilateral breasts Family History Father Seizures Hypertension Stroke Mother No problems noted. Grandmother Hypertension paternal Grandfather Hypertension paternal Diabetes paternal Family/Other Diabetes paternal uncle Denies family history of Colon cancer Ovarian cancer Heart disease Hypercholesteremia Breast cancer Uterine cancer Thyroid disease Social History Smoking and tobacco/nicotine status: never used tobacco/nicotine Substance/Drug Use: never Female Reproductive History: : 3 Vitals/I&O/Wt Last Vital Signs Pulse 80 06/19/23 14:29 Resp 17 06/19/23 12:33 BP 121/66 06/19/23 14:29 O2 Del Method Room Air 06/19/23 13:33 Weight last 48 hrs Weight 212 lb Physical Exam 2 Narrative: GENERAL: The patient was well-nourished with a healthy appearance and appropriately groomed. MENTAL STATUS: Orientation was full to 10 of 10 questions of orientation. Speech was fluent without word hesitation. No difficulty following a complex command. The affect was euthymic. CRANIAL NERVES: Funduscopic exam reveals mild blurring of the disc margins on both sides with no hemorrhages. Visual woodson full to confrontation. She was able to read small print out of the left eye. Visual acuity was not tested. She could hear a very softly whispered number in each ear. Speech was clear and fluent. MOTOR: There was no drift of the extended arms. Fine movements in the hands were rapid and symmetric. Grades 1 Thru 6 Visiting Teacher were strong. SENSATION: Pin, touch intact in the four extremities distally. COORDINATION: Ojmprb-pirm-wghnjr, dbrd-oded-tiym and rapid alternating movements were performed smoothly without evidence of tremor or ataxia. DEEP TENDON REFLEXES: 2/4 throughout. GAIT: Not tested HEENT: Normocephalic without dysmorphic features. Conjunctivae were not injected and sclerae were nonicteric. NECK: Carotid upstroke was strong bilaterally without bruits. The thyroid was not enlarged and there were no palpable lymph nodes. CHEST: Clear to auscultation. CARDIOVASCULAR: The heart sounds were normal without murmur or gallop. Regular rate and rhythm. EXTREMITIES: There was no edema or cyanosis. The skin was unremarkable. The spine exhibited normal thoracic kyphosis and normal lumbar lordosis without deformities. Data 06/19/23 13:14 06/19/23 13:14 A&P Assessment and plan (1) Idiopathic intracranial hypertension: Benign intracranial hypertension diagnosed by ophthalmology and managed by ophthalmology at [place]. She has new symptoms of left-sided hearing loss and reduced vision in the left eye but these changes are mild as demonstrated on exam as she is able to read small print out of the left eye and was able to hear a softly whispered number in the left ear. I think at this point she needs to go ahead and have MR venogram to make sure that she does not have central venous thrombosis as a cause for her intracranial hypertension. Recommend continuing Diamox 500 mg 3 times a day. She needs to follow-up with her customer service receptionist at [facility] and with Dr. Soriano locally for ongoing monitoring of her visual woodson. Once Dr. Lopez is comfortable that she does not have preeclampsia and her MR venogram is completed I think she can go home. 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
[2023-09-09] VITALS (9 sets, daily range): BP systolic 123–148; BP diastolic 56–88; PULSE 65–90; RESP 16; BMI 41.1
[2023-09-09] MEDS: lactated ringers 1,000 ML 999 ML IV (06:11)
[2023-09-09] MEDS: ceFAZolin 2,000 MG in sodium chloride 0.9% (plus) 50 ML 100 MG IV (06:16)
[2023-09-09] MEDS: metoclopramide 5 mg/mL SDV 2 mL 10 MG IVP (06:59)
[2023-09-09] MEDS: citric acid-sodium citrate 30 mL UDC PO (06:59)
[2023-09-09] MEDS: famotidine 20 mg/2 mL INJ IVP (06:59)
[2023-09-09] MEDS: BUPivacaine liposome 266 MG, BUPivacaine 0.25% 30 ML in sodium chloride 0.9% 50 ML 30 MG INFILTRATI (07:53)
[2023-09-09] MEDS: ondansetron 2 mg/ML SDV 2 mL 4 MG IVP (10:38)
== END 2023-06-19 15:40 | disposition home or self-care (01) ==
LOC: OPOB 12:00 → OBGYN 12:01
PROVIDERS: PCP Family Medicine; Visit Provider Obstetrics & Gynecology
DX: O26.899 Other specified pregnancy related conditions, unspecified trimester (principal); Z3A.00 Weeks of gestation of pregnancy not specified; G93.2 Benign intracranial hypertension; E06.3 Autoimmune thyroiditis
CPT/HCPCS: 36415; 76815; 80053; 81001; 82570; 84156; 84550; 85025; 99211; C9290; J0690; J1200; J1885; J2274; J2371; J2405; J2765; J3010; J3490; J7120

== ENCOUNTER → 2023-06-23 08:11 | Outpatient (BNVA) | payer MEDICAID, SELFPAY | PROVIDERS: PCP Family Medicine; Visit Provider Obstetrics & Gynecology | DX: O09.899 Supervision of other high risk pregnancies, unspecified trimester (principal); I10 Essential (primary) hypertension | CPT/HCPCS: 76815; 76819; 81000; 85025 ==

== ENCOUNTER → 2023-07-10 07:51 | Outpatient (BNVA) | payer MEDICAID, SELFPAY | PROVIDERS: PCP Family Medicine; Visit Provider Obstetrics & Gynecology | DX: O09.899 Supervision of other high risk pregnancies, unspecified trimester (principal); Z3A.30 30 weeks gestation of pregnancy | CPT/HCPCS: 76819; 81000 ==

== ENCOUNTER → 2023-07-21 07:54 | Outpatient (BNVA) | payer MEDICAID, SELFPAY | PROVIDERS: PCP Family Medicine; Visit Provider Obstetrics & Gynecology | DX: O09.899 Supervision of other high risk pregnancies, unspecified trimester (principal); Z3A.32 32 weeks gestation of pregnancy | CPT/HCPCS: 76815; 76819; 81000; 87491; 87591 ==

== ENCOUNTER 2023-08-02 19:50 | Outpatient (CLI) | payer MEDICAID, SELFPAY ==
[2023-08-02] VITALS (10 sets, daily range): BP systolic 126–148; BP diastolic 57–77; PULSE 83–100; RESP 17; TEMP 35.9; BMI 38.4
[2023-08-02 21:02] LABS: Glucose Urine UA Norm (Normal); Ketones Urine Negative (Negative); Protein Urine Neg (Negative); Urine Appearance Turbid (CLEAR); Urine Color Yellow (Yellow); pH Urine 6 (5-7)
[2023-08-02 21:03] LABS: Amorphous Sediment Urine TRACE /hpf; Bacteria Urine 2+ /hpf; Bilirubin Urine Neg (Negative); Blood Urine Neg (Negative); Hyaline Casts Urine 0-4 /lpf; Leukocyte Esterase Urine 2+ (Negative); Mucus Urine 2+ /hpf; Nitrate Urine Negative (Negative); Squamous Epithelial Cell Urine 15-25 /hpf (0-5); Urobilinogen Urine Norm (Negative); WBC Urine 25-40 /hpf (0-5)
== END 2023-08-02 21:52 | disposition home or self-care (01) ==
LOC: OPOB 19:57 → OBGYN 19:58
PROVIDERS: PCP Family Medicine; Visit Provider Obstetrics & Gynecology
DX: O36.8190 Decreased fetal movements, unspecified trimester, not applicable or unspecified (principal); Z3A.00 Weeks of gestation of pregnancy not specified; R10.9 Unspecified abdominal pain
CPT/HCPCS: 59025; 81001; 87086; 99211

== ENCOUNTER 2023-08-05 19:44 | Outpatient (CLI) | payer MEDICAID, SELFPAY ==
[2023-08-05] VITALS (15 sets, daily range): BP systolic 106–132; BP diastolic 55–77; PULSE 83–103; RESP 17–18; TEMP 36.3–36.4; BMI 38.6
[2023-08-05 21:06] LABS: Basophils # 0.1 10^3/uL (0.0-0.1); Basophils % 0.4 %; Eosinophils # 0.2 10^3/uL (0.0-0.8); Eosinophils % 1.1 %; Hematocrit 31.6 % (36-47); Lymphocytes # 2.4 10^3/uL (0.8-4.8); Lymphocytes % 17.8 %; Mean Corpuscular HGB Conc 30.7 g/dL (30-55); Mean Corpuscular Hemoglobin 24.6 pg (27-33); Mean Corpuscular Volume 80.2 fl (85-98); Mean Platelet Volume 13.9 fL (7.4-10.4); Monocytes # 0.9 10^3/uL (0.2-0.9); Monocytes % 6.8 %; Neutrophils # 9.46 10^3/uL (1.8-7.7); Neutrophils % 69.5 %; Nucleated Red Blood Cells % 0.2 %; Platelet Count 221 10^3/cmm (157-399); Red Blood Count 3.94 10^6/uL (3.85-5.65); Red Cell Distribution Width 15.6 % (12.1-15.1); White Blood Count 13.63 10^3/uL (3.29-11.43)
--- NOTE | 2023-08-05 21:06 | USR_ITS ---
PROCEDURE INFORMATION: Exam: US Biophysical Profile Without Non-Stress Test Exam date and time: 08/05/2023 10:09 PM Age: 23 years old Clinical indication: Screening exam; Encounter for screening of mother; Third trimester (=28 weeks 0 days); ; Patient HX: Bpp; Additional info: Pre-e work up TECHNIQUE: Imaging protocol: US biophysical profile without non-stress testing. COMPARISON: US OB lmt w/ BPP wo NST 07/21/2023 8:02 AM FINDINGS: heart rate: 136 bpm presentation: Cephalic Placenta: Posterior and Fundal grade 1 placenta without previa. Amniotic fluid: Amniotic fluid volume is normal. Amniotic fluid index: RAJ is 21.65 cm. BIOPHYSICAL PROFILE: breathing movement (BPP): 2/2 body movement (BPP): 2/2 tone (BPP): 2 out of 2. Amniotic fluid (BPP): 2/2 Biophysical profile score (BPP): 8/8 MATERNAL ANATOMY: Cervix: Cervical length measures 4.79 cm. US/US OB BPP wo NST 38793 IMPRESSION: 1. Single live intrauterine gestation. 2. Biophysical profile score 8/8.
[2023-08-05 21:24] LABS: Alanine Aminotransferase 11 U/L (0-33); Albumin Level 3.5 g/dL (3.5-5.2); Alkaline Phosphatase 64 U/L (35-105); Anion Gap 14.8 (5-19); Aspartate Amino Transferase 10 U/L (0-32); Blood Urea Nitrogen 8 mg/dL (6-20); Calcium 8.2 mg/dL (8.5-10.5); Carbon Dioxide 18 mmol/L (22-29); Chloride 110 mmol/L (98-107); Globulin 2.7 g/dL (1.3-4.6); Glomerular Filtration Rate 154.3 mL/min (90-130); Glucose 93 mg/dL (65-115); Osmolality Calculated 286 mOsm/kg (285-295); Potassium 3.8 mmol/L (3.5-5.1); Sodium 139 mmol/L (136-145); Total Bilirubin 0.2 mg/dL (0.15-1.2); Total Protein 6.2 g/dL (6.6-8.7); Uric Acid 3.7 mg/dL (2.4-5.7)
[2023-08-05 21:31] LABS: Urine Creatinine 85 mg/dL (28-217); Urine Protein Random 12 mg/dL
[2023-08-05 21:36] LABS: UPRO/UCREAT Ratio 0.14 mg/mg CR
[2023-08-05 21:42] LABS: Add Urine Microscopic? YES; Bacteria Urine 1+ /hpf; Bilirubin Urine Neg (Negative); Blood Urine Neg (Negative); Glucose Urine UA Norm (Normal); Ketones Urine Negative (Negative); Leukocyte Esterase Urine 1+ (Negative); Nitrate Urine Negative (Negative); Protein Urine Neg (Negative); Sulfosalicylic Acid Urine Negative (Negative); Urine Appearance Hazy (CLEAR); Urine Color Yellow (Yellow); Urobilinogen Urine Norm (Negative); WBC Urine 0-4 /hpf (0-5); pH Urine 8 (5-7)
[2023-08-05 21:43] LABS: Add Urine Culture? No
[2023-08-05] MEDS: acetaminophen 500 mg Tablet 1000 MG PO (23:06)
== END 2023-08-05 23:30 | disposition home or self-care (01) ==
LOC: OPOB 19:45 → OBGYN 19:46
PROVIDERS: PCP Family Medicine; Visit Provider Obstetrics & Gynecology
DX: O16.3 Unspecified maternal hypertension, third trimester (principal); Z3A.00 Weeks of gestation of pregnancy not specified; R51.9 Headache, unspecified; H53.8 Other visual disturbances
CPT/HCPCS: 36415; 59025; 76819; 80053; 81001; 82570; 84156; 84550; 85025; 99211

== ENCOUNTER → 2023-08-07 08:45 | Outpatient (BNVA) | payer MEDICAID, SELFPAY | PROVIDERS: PCP Family Medicine; Visit Provider Obstetrics & Gynecology | DX: O09.899 Supervision of other high risk pregnancies, unspecified trimester (principal); Z3A.28 28 weeks gestation of pregnancy; O13.3 Gestational [pregnancy-induced] hypertension without significant proteinuria, third trimester | CPT/HCPCS: 76819; 81000 ==

== ENCOUNTER → 2023-08-11 08:08 | Outpatient (BNVA) | payer MEDICAID, SELFPAY | PROVIDERS: PCP Family Medicine; Visit Provider Obstetrics & Gynecology | DX: O09.899 Supervision of other high risk pregnancies, unspecified trimester (principal) | CPT/HCPCS: 81000 ==

== ENCOUNTER 2023-08-12 08:47 | Outpatient (CLI) | payer MEDICAID, SELFPAY ==
[2023-08-12 08:50] VITALS: BMI 38.6
[2023-08-12 09:07] VITALS: BP 139/86; PULSE 99
[2023-08-12 09:28] VITALS: BP 132/77; PULSE 100
[2023-08-12 09:48] VITALS: BP 130/72; PULSE 98
[2023-08-12 10:07] VITALS: BP 129/65; PULSE 87
[2023-08-12 10:22] VITALS: BP 129/65; PULSE 87; RESP 16; TEMP 36.9
== END 2023-08-12 10:20 | disposition home or self-care (01) ==
LOC: OPOB 08:51 → OBGYN 08:59
PROVIDERS: PCP Family Medicine; Visit Provider Obstetrics & Gynecology
DX: O41.00X0 Oligohydramnios, unspecified trimester, not applicable or unspecified (principal); Z3A.00 Weeks of gestation of pregnancy not specified
CPT/HCPCS: 59025; 99211

== ENCOUNTER 2023-08-13 16:03 | Outpatient (CLI) | payer MEDICAID, SELFPAY ==
[2023-08-13] VITALS (10 sets, daily range): BP systolic 123–141; BP diastolic 66–92; PULSE 75–97; RESP 16; TEMP 36.5; BMI 38.4
[2023-08-13 17:41] LABS: Hematocrit 31.4 % (36-47); Mean Corpuscular HGB Conc 29.9 g/dL (30-55); Mean Corpuscular Hemoglobin 23.6 pg (27-33); Mean Corpuscular Volume 78.9 fl (85-98); Platelet Count 196 10^3/cmm (157-399); Red Blood Count 3.98 10^6/uL (3.85-5.65); Red Cell Distribution Width 15.9 % (12.1-15.1); White Blood Count 12.43 10^3/uL (3.29-11.43)
[2023-08-13 17:57] LABS: Alanine Aminotransferase 11 U/L (0-33); Albumin Level 3.3 g/dL (3.5-5.2); Alkaline Phosphatase 66 U/L (35-105); Anion Gap 14.7 (5-19); Aspartate Amino Transferase 9 U/L (0-32); Blood Urea Nitrogen 7 mg/dL (6-20); Calcium 8.4 mg/dL (8.5-10.5); Carbon Dioxide 23 mmol/L (22-29); Chloride 105 mmol/L (98-107); Globulin 2.9 g/dL (1.3-4.6); Glomerular Filtration Rate 154.3 mL/min (90-130); Glucose 79 mg/dL (65-115); Osmolality Calculated 285 mOsm/kg (285-295); Potassium 3.7 mmol/L (3.5-5.1); Sodium 139 mmol/L (136-145); Total Bilirubin 0.2 mg/dL (0.15-1.2); Total Protein 6.2 g/dL (6.6-8.7); Uric Acid 3.4 mg/dL (2.4-5.7)
[2023-08-13 18:05] LABS: Glucose Urine UA Norm (Normal); Ketones Urine Negative (Negative); Protein Urine Neg (Negative); Urine Appearance Cloudy (CLEAR); Urine Color Light yellow (Yellow); pH Urine 6.5 (5-7)
[2023-08-13 18:06] LABS: Add Urine Microscopic? YES; Bilirubin Urine Neg (Negative); Blood Urine 2+ (Negative); Leukocyte Esterase Urine 2+ (Negative); Nitrate Urine Negative (Negative); Urobilinogen Urine Norm (Negative)
[2023-08-13 18:15] LABS: Add Urine Culture? Yes; Bacteria Urine 2+ /hpf; Transitional Epi Cells Urine 0-4 /hpf; WBC Urine >100 /hpf (0-5)
[2023-08-13 18:16] LABS: Urine Creatinine 25 mg/dL (28-217); Urine Protein Random 7 mg/dL
[2023-08-13 18:18] LABS: UPRO/UCREAT Ratio 0.28 mg/mg CR
[2023-08-13 18:24] LABS: Slide Review Slide Review Perform
[2023-08-13 18:25] LABS: Absolute Neutrophil 9.4 10^3/cmm (1.4-6.5); Absolute Segmented Neutrophil 9.4 10/cmm (1.6-7.1); Anisocytosis 2+; Eosinophils 0 %; Giant Platelets 2+; Lymphocytes 17 %; Lymphocytes Absolute 2.1 10^3/cmm (1.2-3.4); Monocytes Absolute 0.6 10^3/cmm (0.1-0.6); Platelet Estimate Normal (Normal); Polychromasia Trace; Segmented Neutrophils 76 %; Total Cells Counted 100 (0-100)
--- NOTE | 2023-08-13 18:36 | USR_ITS ---
PROCEDURE INFORMATION: Exam: US Biophysical Profile Without Non-Stress Test Exam date and time: 08/13/2023 8:21 PM Age: 23 years old Clinical indication: ; Patient HX: No prior c-sections. Maternal intracranial hypertensions discovered shortly before this via mrv, mri, and CT. G3-p2, maternal HTN, pre-eclampsia. A is being planned due to maternal intracranial hypertension. ; Additional info: well being, maternal elevated blood pressure, MARIE, ich, (intracranial hypertension) TECHNIQUE: Imaging protocol: US biophysical profile without non-stress testing. COMPARISON: US OB BPP NST 57270 08/07/2023 8:55 AM FINDINGS: Limited study for biophysical profile. There is a single, living, intrauterine gestation in vertex presentation, with positive heart motion at 131 bpm. Placenta is located posteriorly without previa or hemorrhage. Amniotic fluid is qualitatively and quantitatively normal, with the amniotic fluid index measuring 18.9 cm in 4 quadrants. Cervical os is closed. Bilateral adnexa were not evaluated. heart rate: 131 bpm. BIOPHYSICAL PROFILE: breathing movement (BPP): 2 out of 2. body movement (BPP): 2 out of 2. tone (BPP): 2 out of 2. Amniotic fluid (BPP): 2 out of 2. US/US OB BPP NST 11188 IMPRESSION: 1. Single, living, intrauterine gestation in vertex presentation. 2. Biophysical profile 02/18.
--- NOTE | 2023-08-13 20:24 | PC.NURSE ---
Flavio with ultrasound at bedside for BPP at approximately 2019.
--- NOTE | 2023-08-13 20:56 | PC.NURSE ---
Flavio came out of OB 13 and stated that pt baby was breech, BPP was 8/8, RAJ was 18.9, and cervix was closed. +
== END 2023-08-13 21:04 | disposition home or self-care (01) ==
LOC: OPOB 16:04 → OBGYN 20:24
PROVIDERS: Obstetrics & Gynecology; PCP Family Medicine; Visit Provider Obstetrics & Gynecology
DX: O16.9 Unspecified maternal hypertension, unspecified trimester (principal); Z3A.00 Weeks of gestation of pregnancy not specified
CPT/HCPCS: 36415; 59025; 76819; 80053; 81001; 82570; 84156; 84550; 85007; 85025; 87086; 99211

== ENCOUNTER 2023-08-14 09:12 | Outpatient (CLI) | payer MEDICAID, SELFPAY ==
--- NOTE | 2023-08-14 09:15 | US_ITS ---
WS: [id number] BIOPHYSICAL PROFILE AMNIOTIC FLUID HISTORY: BPP and presentation confirmation COMPARISON: 08/13/2023 position: Breech Cardiac activity: 133 bpm. Cervix: 4.2 cm; closed. Placenta: Posterior and fundal. Grade 1. Placenta grade: 1 Parameters are as follows: Breathin Movement: 2 Tone: 2 Fluid volume: 2 Amniotic Fluid Index: 20.6 cm. IMPRESSION: 1. Biophysical profile score: 8/8. 2. Breech position. 3. Normal amniotic fluid.
--- NOTE | 2023-08-14 09:33 | PC.NURSE ---
pt returning for a repeat BPP and verify presentation
== END 2023-08-14 10:15 | disposition home or self-care (01) ==
LOC: OPOB 09:12 → OBGYN 09:13
PROVIDERS: PCP Family Medicine; Visit Provider Obstetrics & Gynecology
DX: O26.899 Other specified pregnancy related conditions, unspecified trimester (principal); Z3A.00 Weeks of gestation of pregnancy not specified
CPT/HCPCS: 59025; 76819; 99211

== ENCOUNTER → 2023-08-18 07:56 | Outpatient (BNVA) | payer MEDICAID, SELFPAY | PROVIDERS: PCP Family Medicine; Visit Provider Obstetrics & Gynecology | DX: Z36.9 Encounter for antenatal screening, unspecified (principal); O16.3 Unspecified maternal hypertension, third trimester; Z3A.37 37 weeks gestation of pregnancy | CPT/HCPCS: 76815; 76819 ==

== ENCOUNTER 2023-08-18 09:36 | Outpatient (CLI) | payer MEDICAID, SELFPAY ==
[2023-08-18 09:45] VITALS: BP 139/84; PULSE 100; TEMP 35.6
[2023-08-18 09:46] VITALS: RESP 16
[2023-08-18 09:47] VITALS: BMI 39.3
[2023-08-18 10:00] VITALS: BP 141/73; PULSE 96
[2023-08-18 10:11] VITALS: BP 137/70; PULSE 101
[2023-08-18 10:15] VITALS: BP 122/60; PULSE 96
[2023-08-18 10:21] VITALS: BP 122/60; PULSE 96; RESP 16
== END 2023-08-18 10:20 | disposition home or self-care (01) ==
LOC: OPOB 09:38 → OBGYN 09:39
PROVIDERS: PCP Family Medicine; Visit Provider Obstetrics & Gynecology
DX: O26.899 Other specified pregnancy related conditions, unspecified trimester (principal); Z3A.00 Weeks of gestation of pregnancy not specified
CPT/HCPCS: 59025; 99211

== ENCOUNTER → 2023-08-18 10:25 | Day surgery (SDC) | payer MEDICAID, SELFPAY ==
--- NOTE | 2023-08-13 22:35 | PC.NURSE ---
Pt called floor at 2214 stating the reports showing on her patient portal say baby is in vertex presentation. This RN brought up her profile to see the report she was reading from and it does read baby was vertex presentation. Pt stated Flavio with ultrasound told her baby was in the breech presentation. This RN then called Flavio and he stated I don't care what the report shows I scanned her myself and she is breech . I stated I understood but Dr. Sims the radiologist reviewed the report and has documented that baby is in vertex position. He stated, Let me just give you his number and you can call and find out yourself. Flavio gave me the number to [facility]. This RN called [facility] and spoke with Dr. Sims who reviewed and signed off on the report. Dr. Sims stated every BPP she has had including the one on 08/07/2023 baby was vertex and at her gestational age baby could not turn and be in breech presentation. Dr. Sims also stated Flavio could have had the probe not in the correct positioning or presentation. I stated that he specifically told the pt baby was breech presentation. Dr. Sims said he would call Flavio himself and notify him of his findings.
--- NOTE | 2023-08-18 11:05 | ANES.PREANE2 ---
Pre-Anesthetic Assessment Height/Weight: Height 1.6 m Operation Date: 09/09/23 07:20 Proposed Procedures p Primary section 48000, bilateral tubal ligation 73160 G93.2,Z87.59,Z30.2(Not Applicable) - Adryan Lopez MD Familial anesthetic complications: None Social No alcohol and No tobacco Exam alert, oriented x 3, clear to auscultation bilaterally and regular rate & rhythm Airway Dentition: chipped CV/HEM Hypertension Metabolic Thyroid Disease (back to baseline) Neuropsych Pseudotumor cerebri - Although IIH is rare, there are special considerations for anesthetic management in the parturient. Despite the presence of raised ICP in these patients, there are no specific contraindications to neuraxial techniques, and uncal herniation has not been reported to occur in patients with IIH. Sheila Oconnor, Indy G, Con Do. Management of idiopathic intracranial hypertension in parturients: anesthetic considerations. Can J Anaesth. 2011 Jan;58(7):650. doi: 10.1007/k99959-365-5480-3. Epub 2010Nov 06. PMID: [id number]. Anesthetic Plan ASA status: 3 Anesthesia: Regional (specify below) Other: w/ spinal, Patient was instructed to obtain a note from her neurologist indicated spinal anesthesia is not contraindicated Risk of > 500 ml blood loss (7ml/kg in children): Yes, adequate IV access and fluids planned Medications/Allergies Home Medications Medication Instructions Recorded Confirmed Last Taken Type aspirin 81 mg capsule 81 mg PO DAILY 06/07/23 08/18/23 08/02/23 History acetazolamide 500 mg 1,500 mg PO BID 06/23/23 08/18/23 08/02/23 History capsule,extended release 1 tab PO DAILY 08/02/23 08/18/23 08/02/23 History metronidazole 500 mg tablet 500 mg PO BID Vaginal discharge 7 08/04/23 08/18/23 Unknown Rx days #14 tabs nitrofurantoin macrocrystal 100 mg 100 mg PO BID uti symptoms #10 caps 08/04/23 08/18/23 Unknown Rx capsule Allergies Allergy/AdvReac Type Severity Reaction Status Date / Time adhesive tape Allergy burning Verified 08/18/23 08:10 skin, rash flare up [facility] Anesthesia Medical History Colitis just finished abx 01/24/2023 No pertinent past medical history neghx:dm,dvt/pe PCP: Dr Sommer Idiopathic intracranial hypertension (~07/2022) Kelsey at [facility]--neuro-opthamologist Terry Lugo at [facility] Supervision of other high-risk Surgical History S/P breast biopsy Benign cyst - bilateral breasts Family History Father Seizures Hypertension Stroke Mother No problems noted. Grandmother Hypertension paternal Grandfather Hypertension paternal Diabetes paternal Family/Other Diabetes paternal uncle Denies family history of Colon cancer Ovarian cancer Heart disease Hypercholesteremia Breast cancer Uterine cancer Thyroid disease Social History Smoking and tobacco/nicotine status: never used tobacco/nicotine Substance/Drug Use: never Data Anesthesia Cardiac Studies: No Data to Display
--- NOTE | 2023-09-09 07:41 | P.ANESASSM_ITS ---
Pre-Anesthetic Assessment Height/Weight: Height 1.6 m Preop Diagnosis: Idiopathic intracranial HTN/ Undesired fertility Operation Date: 09/09/23 07:20 Proposed Procedures p Primary section 13490, bilateral tubal ligation 92817 G93.2,Z87.59,Z30.2(Not Applicable) - Adryan Lopez MD Was Beta Benny taken within 24 hours: N/A Was Clonidine taken within 24 hours: N/A Social No alcohol and No tobacco Exam alert, oriented x 3, clear to auscultation bilaterally and regular rate & rhythm Airway Submandibular: within normal limits Cervical ROM: within normal limits Mallampati: Class II Dentition: full History/ROS No significant history except as noted and No significant complaints Pulmonary None reported CV/HEM None reported None reported Hepatic None reported GI None reported Metabolic Thyroid Disease [facility] None reported Neuropsych Idiopathic intracranial HTN Anesthetic Plan ASA status: 2 Anesthesia: Anesthesia Evaluation and Regional (specify below) Risk of > 500 ml blood loss (7ml/kg in children): No Medications/Allergies Home Medications Medication Instructions Recorded Confirmed Last Taken Type acetazolamide 500 mg 1,500 mg PO BID 06/23/23 09/09/23 08/02/23 History capsule,extended release 1 tab PO DAILY 08/02/23 09/09/23 08/02/23 History Allergies Allergy/AdvReac Type Severity Reaction Status Date / Time adhesive tape Allergy burning Verified 09/09/23 06:44 skin, rash flare up PFSH Anesthesia Medical History Colitis just finished abx 01/24/2023 No pertinent past medical history neghx:dm,dvt/pe PCP: Dr Sommer Idiopathic intracranial hypertension (~07/2022) Kelsey at [facility]--neuro-opthamologist Terry Lugo at [facility] Supervision of other high-risk Surgical History S/P breast biopsy Benign cyst - bilateral breasts Family History Father Seizures Hypertension Stroke Mother No problems noted. Grandmother Hypertension paternal Grandfather Hypertension paternal Diabetes paternal Family/Other Diabetes paternal uncle Denies family history of Colon cancer Ovarian cancer Heart disease Hypercholesteremia Breast cancer Uterine cancer Thyroid disease Social History Smoking and tobacco/nicotine status: never used tobacco/nicotine Substance/Drug Use: never Data Anesthesia Cardiac Studies: No Data to Display
--- NOTE | 2023-09-09 08:57 | PM.OP ---
Operative Report Date of procedure: September 09, 2023 Pre-op diagnosis: Term Desire permanent sterilization Post-op diagnosis: Term delivered Desire permanent sterilization Procedure done: Primary low-transverse delivery Bilateral salpingectomy Specimens removed/disposition: Left and right fallopian tubes Surgeon: Adryan Lopez MD Estimated blood loss (mL): 800 IV fluids (mL): 1,700 Urine output (mL): 300 Complications: None Procedure: After assuring informed consent, the patient was taken to the operating room and anesthesia was initiated. She was placed in the dorsal supine position with a left lateral tilt. The abdomen was prepped and draped in the usual sterile manner. A time-out procedure was performed. Preop antibiotics was administered. A Pfannenstiel skin incision was made with the scalpel and carried through to the underlying layer of fascia with the Bovie. The fascia was nicked in the midline and the incision extended laterally with the Pina scissors. The superior aspect of the fascial incision was then grasped with Juvenal clamps and elevated and the underlying rectus muscle dissected off bluntly and sharp with pina scissors. Attention was then turned to the inferior aspect of the incision which, in similar fashion, was grasped and tented up with Juvenal clamps and the rectus muscle dissected bluntly. The rectus muscles were then in the midline and the peritoneum identified, tented up and entered sharply with Metzenbaum scissors. The peritoneal incision was then extended superiorly and inferiorly with good visualization of the bladder. The Cliff O retractor was then inserted and the vesicouterine peritoneum identified, grasped with pickups and entered sharply with Metzenbaum scissors. This incision was then extended laterally and the bladder flap created digitally. The uterus incised in a low transverse fashion with the scalpel. The uterine incision was then extended with the bandage scissors. The infant was then delivered in the cephalic presentation atraumatically at []. The nose and the mouth were suctioned with bulb and the cord clamped and cut. The cord was normal and had three vessels. Amniotic fluid was clear. The placenta was then removed manually and the uterus exteriorized and cleared of all clots and debris. The uterine incision was repaired with 0 Vicryl in a running-locked fashion. A second layer of the same suture was used to obtain excellent hemostasis. The gutters were cleared of all clots. The left fallopian tube was identified and grasped with a Mitesh clamp. The tube was then followed out to the fimbria. An avascular midsection of the fallopian tube was grasped with a [place] clamp and brought into a knuckle. The tube was doubly ligated with an O-plain suture and transected. The specimen was sent to pathology. Excellent hemostasis was noted. The same procedure was performed on the opposite fallopian tube. The uterus was then returned to the abdomen. The rectus muscles were approximated with 3-0 chromic gut. The ON-Q pain management system placed. The fascia was reapproximated with 0 Vicryl in an interrupted running fashion. The skin was closed with Insorb?s subcuticular absorbable serene. The patient tolerated the procedure well. The sponge, lap and needle counts were correct times three.
== END ==
PROVIDERS: PCP Family Medicine; Visit Provider Obstetrics & Gynecology
DX: O09.899 Supervision of other high risk pregnancies, unspecified trimester (principal); Z3A.00 Weeks of gestation of pregnancy not specified
CPT/HCPCS: 81000; 87081

== ENCOUNTER 2023-08-19 15:20 | Emergency (ER) | payer MEDICAID, SELFPAY ==
[2023-08-19 15:27] VITALS: BP 131/85; PULSE 102; RESP 16; TEMP 36.6; O2SAT 94; BMI 39.1
--- NOTE | 2023-08-19 15:38 | ECG_ITS ---
[facility] Test Date: 2023-08-19 Pat Name: Delfina Oleary Department: Room: Gender: Female Grips: : 2000 Requested By: Marcy Harman Order Number: [id number] Horton MD: Abrahan Dobbs M.D. Measurements Intervals Kathryn Rate: 101 P: 11 NE: 141 QRS: 37 QRSD: 85 T: 5 QT: 322 QTc: 418 Interpretive Statements SINUS TACHYCARDIA Compared to ECG 05/07/2023 10:31:28 Sinus rhythm no longer present Sinus arrhythmia no longer present Electronically Signed On 08-19-2023 16:43:28 PRESS OPERATOR APPRENTICE by Abrahan Dobbs M.D. [id number]
--- NOTE | 2023-08-19 16:13 | ED_ITS ---
Documented by User: AVELINA Conner 08/22/23 13:00 HPI - Chest Pain 2 General: Chief Complaint: Chest Pain Stated Complaint: chest pain Time Seen by Provider: 08/19/23 15:37 Source: patient Mode of arrival: ambulatory Limitations: no limitations History of Present Illness: Patient is a 23-year-old female at approximately 36.5 weeks here for complaints of right-sided chest pain. Patient states over the past month or so she has been having issues with elevated blood pressure readings. She states when her blood pressure would elevate she would develop right-sided chest pain that would subside/resolve when her blood pressure lowered. Patient states on Friday of this week her blood pressure was as high as 170s/120s and again had the associated right-sided chest pain however this time it has not went away. She feels like pain somewhat radiates into the right shoulder and down her arm. She does feel short of breath but is not sure how much of this is just physiologic secondary to . She also has a concern for excessive weight gain reporting she is gaining approximately 3 pounds a week. MD complaint: chest pain Onset (ago): day(s) Timing of current episode: episodic Prior episodes: Yes Pain location: right chest Pain radiation: right arm Severity: moderate Quality: sharp Relieving factors: nothing Exacerbating factors: other (elevated bp readings) Context: other (36.5 weeks ) Associated symptoms: Deny abdominal pain, dyspnea, fever(s), nausea, palpitations, syncope or vomiting Risk Factors: Coronary artery disease risk factors: none Thoracic aortic dissection risk factors: none Pulmonary embolism risk factors: Related Data: On Oral Contraceptives: No Review of Systems 2 Const: Denies: fever(s), chills, body aches, fatigue or malaise Eyes: Denies: change in vision or blurry vision Card: Reports: chest pain, edema and swelling of feet/ankles; Denies: palpitations, irregular heart rhythm, lightheadedness, syncope, pre- syncope, dyspnea on exertion, orthopnea, leg pain with exertion or acrocyanosis Resp: Denies: dyspnea, productive cough, pain on inspiration, hemoptysis or chest congestion GI: Denies: abdominal pain, nausea, vomiting, heartburn or diarrhea : Denies: flank pain or dysuria Musc: Denies: neck pain, back pain, extremity pain or joint pain Skin/Breast: Denies: rash Neuro: Denies: headache(s), numbness in extremities, weakness in extremities, sensory changes, difficulty walking or dizziness PFSH ED 2 PFSH: Medical History Colitis just finished abx 01/24/2023 No pertinent past medical history neghx:dm,dvt/pe PCP: Dr Sommer Idiopathic intracranial hypertension (~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 Grandmother Hypertension paternal Grandfather Hypertension paternal Diabetes paternal Family/Other Diabetes paternal uncle Denies family history of Colon cancer Ovarian cancer Heart disease Hypercholesteremia Breast cancer Uterine cancer Thyroid disease Social History Smoking and tobacco/nicotine status: never used tobacco/nicotine Substance/Drug Use: never Physical Exam 2 Const: COMMON NORMALS: no acute distress, patient oriented x3, no limitations, healthy appearing, alert and well nourished GENERAL APPEARANCE: cooperative ORIENTATION/CONSCIOUSNESS: Yes awake, Yes oriented to person, Yes oriented to place and Yes oriented to time HENMT: COMMON NORMALS: normocephalic and atraumatic HEAD & SCALP: normal to inspection, normocephalic and atraumatic Eye: GENERAL EYE: appearance normal, both eyes and all related structures Chest: COMMONS NORMALS: normal inspection of the chest and normal palpation of entire chest wall Resp: COMMON NORMALS: normal respiratory effort and clear to auscultation bilaterally AUSCULTATION: clear to auscultation bilaterally Cardio: COMMON NORMALS: regular rate and regular rhythm RATE: regular rate RHYTHM: regular rhythm GI: INSPECTION: Yes gravid abdomen Neuro: ALIREZA COMA SCALE: document GCS findings Cruger coma scale eye opening: Spontaneous Cruger coma scale verbal response: Orientated Alireza coma scale motor response: Obey commands Alireza coma scale total score: 15 COMMON NORMALS: patient oriented x3, CN's II-XII intact bilaterally, moves all extremities, no focal motor deficits and no sensory deficits noted S ENSORIUM/ORIENTATION: Yes alert, Yes oriented to person, Yes oriented to place and Yes oriented to time Skin: COMMON NORMALS: no rashes or lesions noted GENERAL SKIN EXAM: no rashes or lesions noted Course 2 Vital Signs: Vital signs: Vital Signs Temperature 97.9 F 08/19/23 15:27 Pulse Rate 98 08/19/23 17:06 Respiratory Rate 16 08/19/23 15:27 Blood Pressure 169/118 08/19/23 17:06 Pulse Oximetry 98 08/19/23 17:06 Oxygen Delivery Me thod Room Air 08/19/23 15:27 MDM - Chest Pain Medical Decision Making Patient is a 36.5-week individual here for right-sided chest pain. She reportedly went to OB who instructed her to come to the emergency department. Upon arrival here blood pressures are 130s/80s. Workup initiated including CBC, CMP, UA, BNP, CXR, LDH, and EKG. Shortly after my initial examination RN alerted me that patient's repeat blood pressure is now 150s/100s and she is complaining of blurry vision. I immediately spoke to my supervising physician Dr. Duvall who recommended we immediately discharge patient to OB. I did speak to patient's OB provider Dr. Lopez who agreed with decision to discharge to OB. Nursing staff has called OB to alert them that she is coming. I have started her IV labetalol. Lab Data 08/19/23 16:04 08/19/23 16:04 Radiology Impressions Chest X-Ray 08/19/23 16:18 IMPRESSION: No acute findings. Laboratory Results WBC 12.52 10^3/uL (3.29-11.43) H 08/19/23 16:04 RBC 3.89 10^6/uL (3.85-5.65) 08/19/23 16:04 Hgb 9.20 g/dL (11.27-16.99) L 08/19/23 16:04 Hct 31.0 % (36-47) L 08/19/23 16:04 MCV 79.7 fl (85-98) L 08/19/23 16:04 MCH 23.7 pg (27-33) L 08/19/23 16:04 MCHC 29.7 g/dL (30-55) L 08/19/23 16:04 RDW 16.6 % (12.1-15.1) H 08/19/23 16:04 Plt Count 192 10^3/cmm (157-399) 08/19/23 16:04 MPV 13.5 fL (7.4-10.4) H 08/19/23 16:04 Lymph % (Auto) Not Reportable 08/19/23 16:04 [place] % (Auto) Not Reportable 08/19/23 16:04 Lymph # (Auto) Not Reportable 08/19/23 16:04 [place] # (Auto) Not Reportable 08/19/23 16:04 Total Counted 100 (0-100) 08/19/23 16:04 Atypical Lymphs % 2.0 % (0-5) 08/19/23 16:04 Absolute Neutrophils 7.9 10^3/cmm (1.4-6.5) H 08/19/23 16:04 Segmented Neutrophils 63 % 08/19/23 16:04 Abs Segm Neuts (Man) 7.9 10/cmm (1.6-7.1) H 08/19/23 16:04 Band Neutrophils 0.0 % 08/19/23 16:04 Abs Band Neuts (Man) 0.0 10^3/cmm (0.0-1.2) 08/19/23 16:04 Absolute Lymphocytes 3.4 10^3/cmm (1.2-3.4) 08/19/23 16:04 Lymphocytes (Manual) 25 % 08/19/23 16:04 Monocytes (Manual) 6.0 % 08/19/23 16:04 Absolute Monocytes 0.8 10^3/cmm (0.1-0.6) H 08/19/23 16:04 Eosinophils (Manual) 0 % 08/19/23 16:04 Absolute Eosinophils 0.0 10^3/cmm (0.0-0.7) 08/19/23 16:04 Basophils (Manual) 0.0 % 08/19/23 16:04 Absolute Basophils 0.0 10^3/cmm (0.0-0.2) 08/19/23 16:04 Metamyelocytes 2.0 % 08/19/23 16:04 Myelocytes 2.0 % 08/19/23 16:04 Platelet Estimate Normal (Normal) 08/19/23 16:04 Giant Platelets 1+ H 08/19/23 16:04 Polychromasia 2+ H 08/19/23 16:04 Anisocytosis 1+ H 08/19/23 16:04 Microcytosis 1+ H 08/19/23 16:04 Sodium 137 mmol/L (136-145) 08/19/23 16:04 Potassium 4.0 mmol/L (3.5-5.1) 08/19/23 16:04 Chloride 104 mmol/L (98-107) 08/19/23 16:04 Carbon Dioxide 20 mmol/L (22-29) L 08/19/23 16:04 Anion Gap 17.0 (5-19) 08/19/23 16:04 BUN 9 mg/dL (6-20) 08/19/23 16:04 Creatinine 0.5 mg/dL (0.5-0.9) 08/19/23 16:04 GFR Calculation 154.3 mL/min (90-130) H 08/19/23 16:04 Glucose 82 mg/dL (65-115) 08/19/23 16:04 Calculated Osmolality 282 mOsm/kg (285-295) L 08/19/23 16:04 Calcium 9.0 mg/dL (8.5-10.5) 08/19/23 16:04 Total Bilirubin 0.2 mg/dL (0.15-1.2) 08/19/23 16:04 AST 12 U/L (0-32) 08/19/23 16:04 ALT 12 U/L (0-33) 08/19/23 16:04 Alkaline Phosphatase 64 U/L (35-105) 08/19/23 16:04 Lactate Dehydrogenase 210 U/L (135-214) 08/19/23 16:04 NT-Pro-B Natriuret Pep < 36 pg/mL (0-125) 08/19/23 16:04 Total Protein 6.4 g/dL (6.6-8.7) L 08/19/23 16:04 Albumin 3.4 g/dL (3.5-5.2) L 08/19/23 16:04 Globulin 3.0 g/dL (1.3-4.6) 08/19/23 16:04 Urine Color Yellow (Yellow) 08/19/23 16:12 Urine Appearance Sl hazy (CLEAR) A 08/19/23 16:12 Urine pH 6 (5-7) 08/19/23 16:12 Ur Specific [place] 1.020 (1.005-1.030) 08/19/23 16:12 Urine Protein Trace (Negative) 08/19/23 16:12 Urine Glucose (UA) Norm (Normal) 08/19/23 16:12 Urine Ketones Negative (Negative) 08/19/23 16:12 Urine Blood Neg (Negative) 08/19/23 16:12 Urine Nitrate Negative (Negative) 08/19/23 16:12 Urine Bilirubin Neg (Negative) 08/19/23 16:12 Urine Urobilinogen Norm mg/dL (Negative) 08/19/23 16:12 Ur Leukocyte Esterase 2+ (Negative) H 08/19/23 16:12 Urine RBC 0-4 /hpf (0-2) H 08/19/23 16:12 Urine WBC 5-10 /hpf (0-5) H 08/19/23 16:12 Ur Squamous Epith Cells 0-4 /hpf (0-5) H 08/19/23 16:12 Ur Transition Epith Cell 0-4 /hpf 08/19/23 16:12 Amorphous Sediment Trace /hpf 08/19/23 16:12 Urine Bacteria Trace /hpf (NONE) 08/19/23 16:12 Urine Mucus 2+ /hpf 08/19/23 16:12 Urine Yeast 1+ /hpf H 08/19/23 16:12 Discharge Plan Discharge Patient Disposition: Transfer to ED Condition: Stable Prescriptions: No Action acetazolamide 500 mg capsule, extended release 1,500 mg PO BID metronidazole 500 mg tablet 500 mg PO BID 7 Days Qty: 14 0RF nitrofurantoin macrocrystal 100 mg capsule 100 mg PO BID Qty: 10 0RF Rx Instructions: must administer with a meal/food aspirin 81 mg Capsule 81 mg PO DAILY 1 tab PO DAILY Referrals: Fay Sommer DO [Primary Care Provider] - Coding Level of Care Code ED [employer] for [employer] Documented by User: Jeramie Duvall MD 08/20/23 10:06 HPI - Chest Pain 2 General: Chief Complaint: Chest Pain Stated Complaint: chest pain Time Seen by Provider: 08/19/23 15:37 PFSH ED 2 PFSH: Medical History Colitis just finished abx 01/24/2023 No pertinent past medical history neghx:dm,dvt/pe PCP: Dr Sommer Idiopathic intracranial hypertension (~07/2022) Kelsey at [facility]--neuro-opthamologist Terry Lguo at [facility] Supervision of other high-risk Surgical History S/P breast biopsy Benign cyst - bilateral breasts Family History Father Seizures Hypertension Stroke Mother No problems noted. Grandmother Hypertension paternal Grandfather Hypertension paternal Diabetes paternal Family/Other Diabetes paternal uncle Denies family history of Colon cancer Ovarian cancer Heart disease Hypercholesteremia Breast cancer Uterine cancer Thyroid disease Social History Smoking and tobacco/nicotine status: never used tobacco/nicotine Substance/Drug Use: never Physical Exam 2 Neuro: ALIREZA COMA SCALE: document GCS findings Alireza coma scale total score: 15 Course 2 Vital Signs: Vital signs: Vital Signs Temperature 97.9 F 08/19/23 15:27 Pulse Rate 98 08/19/23 17:06 Respiratory Rate 16 08/19/23 15:27 Blood Pressure 169/118 08/19/23 17:06 Pulse Oximetry 98 08/19/23 17:06 Oxygen Delivery Me thod Room Air 08/19/23 15:27 MDM - Chest Pain Lab Data 08/19/23 16:04 08/19/23 16:04 Radiology Impressions Chest X-Ray 08/19/23 16:18 IMPRESSION: No acute findings. Laboratory Results WBC 12.52 10^3/uL (3.29-11.43) H 08/19/23 16:04 RBC 3.89 10^6/uL (3.85-5.65) 08/19/23 16:04 Hgb 9.20 g/dL (11.27-16.99) L 08/19/23 16:04 Hct 31.0 % (36-47) L 08/19/23 16:04 MCV 79.7 fl (85-98) L 08/19/23 16:04 MCH 23.7 pg (27-33) L 08/19/23 16:04 MCHC 29.7 g/dL (30-55) L 08/19/23 16:04 RDW 16.6 % (12.1-15.1) H 08/19/23 16:04 Plt Count 192 10^3/cmm (157-399) 08/19/23 16:04 MPV 13.5 fL (7.4-10.4) H 08/19/23 16:04 Lymph % (Auto) Not Reportable 08/19/23 16:04 [place] % (Auto) Not Reportable 08/19/23 16:04 Lymph # (Auto) Not Reportable 08/19/23 16:04 [place] # (Auto) Not Reportable 08/19/23 16:04 Total Counted 100 (0-100) 08/19/23 16:04 Atypical Lymphs % 2.0 % (0-5) 08/19/23 16:04 Absolute Neutrophils 7.9 10^3/cmm (1.4-6.5) H 08/19/23 16:04 Segmented Neutrophils 63 % 08/19/23 16:04 Abs Segm Neuts (Man) 7.9 10/cmm (1.6-7.1) H 08/19/23 16:04 Band Neutrophils 0.0 % 08/19/23 16:04 Abs Band Neuts (Man) 0.0 10^3/cmm (0.0-1.2) 08/19/23 16:04 Absolute Lymphocytes 3.4 10^3/cmm (1.2-3.4) 08/19/23 16:04 Lymphocytes (Manual) 25 % 08/19/23 16:04 Monocytes (Manual) 6.0 % 08/19/23 16:04 Absolute Monocytes 0.8 10^3/cmm (0.1-0.6) H 08/19/23 16:04 Eosinophils (Manual) 0 % 08/19/23 16:04 Absolute Eosinophils 0.0 10^3/cmm (0.0-0.7) 08/19/23 16:04 Basophils (Manual) 0.0 % 08/19/23 16:04 Absolute Basophils 0.0 10^3/cmm (0.0-0.2) 08/19/23 16:04 Metamyelocytes 2.0 % 08/19/23 16:04 Myelocytes 2.0 % 08/19/23 16:04 Platelet Estimate Normal (Normal) 08/19/23 16:04 Giant Platelets 1+ H 08/19/23 16:04 Polychromasia 2+ H 08/19/23 16:04 Anisocytosis 1+ H 08/19/23 16:04 Microcytosis 1+ H 08/19/23 16:04 Sodium 137 mmol/L (136-145) 08/19/23 16:04 Potassium 4.0 mmol/L (3.5-5.1) 08/19/23 16:04 Chloride 104 mmol/L (98-107) 08/19/23 16:04 Carbon Dioxide 20 mmol/L (22-29) L 08/19/23 16:04 Anion Gap 17.0 (5-19) 08/19/23 16:04 BUN 9 mg/dL (6-20) 08/19/23 16:04 Creatinine 0.5 mg/dL (0.5-0.9) 08/19/23 16:04 GFR Calculation 154.3 mL/min (90-130) H 08/19/23 16:04 Glucose 82 mg/dL (65-115) 08/19/23 16:04 Calculated Osmolality 282 mOsm/kg (285-295) L 08/19/23 16:04 Calcium 9.0 mg/dL (8.5-10.5) 08/19/23 16:04 Total Bilirubin 0.2 mg/dL (0.15-1.2) 08/19/23 16:04 AST 12 U/L (0-32) 08/19/23 16:04 ALT 12 U/L (0-33) 08/19/23 16:04 Alkaline Phosphatase 64 U/L (35-105) 08/19/23 16:04 Lactate Dehydrogenase 210 U/L (135-214) 08/19/23 16:04 NT-Pro-B Natriuret Pep < 36 pg/mL (0-125) 08/19/23 16:04 Total Protein 6.4 g/dL (6.6-8.7) L 08/19/23 16:04 Albumin 3.4 g/dL (3.5-5.2) L 08/19/23 16:04 Globulin 3.0 g/dL (1.3-4.6) 08/19/23 16:04 Urine Color Yellow (Yellow) 08/19/23 16:12 Urine Appearance Sl hazy (CLEAR) A 08/19/23 16:12 Urine pH 6 (5-7) 08/19/23 16:12 Ur Specific [place] 1.020 (1.005-1.030) 08/19/23 16:12 Urine Protein Trace (Negative) 08/19/23 16:12 Urine Glucose (UA) Norm (Normal) 08/19/23 16:12 Urine Ketones Negative (Negative) 08/19/23 16:12 Urine Blood Neg (Negative) 08/19/23 16:12 Urine Nitrate Negative (Negative) 08/19/23 16:12 Urine Bilirubin Neg (Negative) 08/19/23 16:12 Urine Urobilinogen Norm mg/dL (Negative) 08/19/23 16:12 Ur Leukocyte Esterase 2+ (Negative) H 08/19/23 16:12 Urine RBC 0-4 /hpf (0-2) H 08/19/23 16:12 Urine WBC 5-10 /hpf (0-5) H 08/19/23 16:12 Ur Squamous Epith Cells 0-4 /hpf (0-5) H 08/19/23 16:12 Ur Transition Epith Cell 0-4 /hpf 08/19/23 16:12 Amorphous Sediment Trace /hpf 08/19/23 16:12 Urine Bacteria Trace /hpf (NONE) 08/19/23 16:12 Urine Mucus 2+ /hpf 08/19/23 16:12 Urine Yeast 1+ /hpf H 08/19/23 16:12 No radiology studies performed this visit Discharge Plan Discharge Patient Disposition: Transfer to ED Condition: Stable Prescriptions: No Action acetazolamide 500 mg capsule, extended release 1,500 mg PO BID metronidazole 500 mg tablet 500 mg PO BID 7 Days Qty: 14 0RF nitrofurantoin macrocrystal 100 mg capsule 100 mg PO BID Qty: 10 0RF Rx Instructions: must administer with a meal/food aspirin 81 mg Capsule 81 mg PO DAILY 1 tab PO DAILY Referrals: Fay Sommer DO [Primary Care Provider] - Coding Level of Care Code ED [employer] for Jesse Plunkett
[2023-08-19 16:17] LABS: Mean Corpuscular HGB Conc 29.7 g/dL (30-55); Mean Corpuscular Hemoglobin 23.7 pg (27-33); Mean Corpuscular Volume 79.7 fl (85-98); Mean Platelet Volume 13.5 fL (7.4-10.4); Platelet Count 192 10^3/cmm (157-399); Red Blood Count 3.89 10^6/uL (3.85-5.65); Red Cell Distribution Width 16.6 % (12.1-15.1); White Blood Count 12.52 10^3/uL (3.29-11.43)
--- NOTE | 2023-08-19 16:18 | XRR_ITS ---
PROCEDURE INFORMATION: Exam: XR Chest Exam date and time: 08/19/2023 4:25 PM Age: 23 years old Clinical indication: Pain; Chest pressure; Additional info: R upper chest pain; 36 weeks PT shielded TECHNIQUE: Imaging protocol: Radiologic exam of the chest. Views: 1 view. COMPARISON: CR (CHEST, ) 07/21/2022 9:17 PM FINDINGS: Lungs: Reduced lung volumes. No consolidation. Pleural spaces: Unremarkable. No pleural effusion. No pneumothorax. Heart/Mediastinum: Unremarkable. No cardiomegaly. Bones/joints: Unremarkable. XR/XR chest 1V portable [id number] IMPRESSION: No acute findings.
[2023-08-19 16:26] LABS: Bilirubin Urine Neg (Negative); Blood Urine Neg (Negative); Glucose Urine UA Norm (Normal); Ketones Urine Negative (Negative); Leukocyte Esterase Urine 2+ (Negative); Nitrate Urine Negative (Negative); Protein Urine Trace (Negative); Urine Appearance SL Hazy (CLEAR); Urine Color Yellow (Yellow); Urobilinogen Urine Norm (Negative); pH Urine 6 (5-7)
[2023-08-19 16:39] LABS: Add Urine Microscopic? YES
[2023-08-19 16:43] LABS: Add Urine Culture? Yes; Amorphous Sediment Urine TRACE /hpf; Bacteria Urine TRACE /hpf; Mucus Urine 2+ /hpf; RBC Urine 0-4 /hpf (0-2); Squamous Epithelial Cell Urine 0-4 /hpf (0-5); Transitional Epi Cells Urine 0-4 /hpf
[2023-08-19 16:47] LABS: Alanine Aminotransferase 12 U/L (0-33); Albumin Level 3.4 g/dL (3.5-5.2); Alkaline Phosphatase 64 U/L (35-105); Aspartate Amino Transferase 12 U/L (0-32); Blood Urea Nitrogen 9 mg/dL (6-20); Carbon Dioxide 20 mmol/L (22-29); Chloride 104 mmol/L (98-107); Glomerular Filtration Rate 154.3 mL/min (90-130); Glucose 82 mg/dL (65-115); Osmolality Calculated 282 mOsm/kg (285-295); Sodium 137 mmol/L (136-145); Total Bilirubin 0.2 mg/dL (0.15-1.2); Total Protein 6.4 g/dL (6.6-8.7)
[2023-08-19 16:49] VITALS: BP 150/108; PULSE 98; O2SAT 97
[2023-08-19 16:58] VITALS: BP 169/118; PULSE 97; O2SAT 98
[2023-08-19 17:06] VITALS: BP 169/118; PULSE 98; O2SAT 98
[2023-08-19 17:17] LABS: Lactate Dehydrogenase 210 U/L (135-214); NT Pro B Type Natriuretic Pept < 36 pg/mL (0-125); Slide Review Slide Review Perform
[2023-08-19 17:18] LABS: Absolute Neutrophil 7.9 10^3/cmm (1.4-6.5); Absolute Segmented Neutrophil 7.9 10/cmm (1.6-7.1); Anisocytosis 1+; Eosinophils 0 %; Giant Platelets 1+; Lymphocytes 25 %; Lymphocytes Absolute 3.4 10^3/cmm (1.2-3.4); Monocytes Absolute 0.8 10^3/cmm (0.1-0.6); Platelet Estimate Normal (Normal); Polychromasia 2+; Segmented Neutrophils 63 %; Total Cells Counted 100 (0-100)
[2023-08-19 17:19] LABS: Microcytosis 1+
== END 2023-08-19 17:07 ==
PROVIDERS: Emergency Provider Physician Assistant; PCP Family Medicine
DX: R07.9 Chest pain, unspecified (principal); Z79.82 Long term (current) use of aspirin
CPT/HCPCS: 36415; 71045; 80053; 81001; 83615; 83880; 85007; 85025; 87086; 93005; 99285

== ENCOUNTER 2023-08-19 16:57 | Outpatient (CLI) | payer MEDICAID, SELFPAY ==
[2023-08-19] VITALS (23 sets, daily range): BP systolic 123–149; BP diastolic 63–86; PULSE 84–107; RESP 16; TEMP 35.8; O2SAT 97–100; BMI 38.6
[2023-08-19 17:50] LABS: Uric Acid 4.7 mg/dL (2.4-5.7)
[2023-08-19 18:33] LABS: Urine Creatinine 94 mg/dL (28-217); Urine Protein Random 14 mg/dL
[2023-08-19 18:35] LABS: UPRO/UCREAT Ratio 0.15 mg/mg CR
[2023-08-19] MEDS: NIFEdipine ER (24 hr) 30 mg Tablet PO (19:18)
== END 2023-08-19 19:25 | disposition home or self-care (01) ==
LOC: OPOB 16:59 → OBGYN 17:01
PROVIDERS: PCP Family Medicine; Visit Provider Obstetrics & Gynecology
DX: O16.9 Unspecified maternal hypertension, unspecified trimester (principal); Z3A.00 Weeks of gestation of pregnancy not specified; H53.8 Other visual disturbances
CPT/HCPCS: 59025; 82570; 84156; 84550; 99211

== ENCOUNTER 2023-08-21 10:27 | Outpatient (CLI) | payer MEDICAID, SELFPAY ==
[2023-08-21 10:27] VITALS: BMI 39.3
[2023-08-21 10:56] VITALS: BP 129/78; PULSE 114
[2023-08-21 11:11] VITALS: BP 127/62; PULSE 115
--- NOTE | 2023-08-21 11:16 | US_ITS ---
WS: [id number] ULTRASOUND OB LIMITED TECHNIQUE: Limited ultrasound examination of the fetus. CLINICAL INFORMATION: maternal chest pain COMPARISON: 08/18/2023 FINDINGS: Cervix appears long and closed measuring 3.8 cm. Single interuterine gestation. presentation is cephalic Placental location is posterior fundal.. Placenta grade: 2 heart rate 157 BPM. Normal RAJ 15.0 cm Biophysical profile 8 out of 8. breathin movement: 2 tone: 2 Amniotic fluid: 2 IMPRESSION Normal biophysical profile 8 out of 8
[2023-08-21 11:26] VITALS: BP 123/60; PULSE 106
[2023-08-21 11:41] VITALS: BP 121/63; PULSE 96
[2023-08-21 11:54] LABS: Urine Creatinine 192 mg/dL (28-217)
[2023-08-21 11:55] LABS: UPRO/UCREAT Ratio 0.12 mg/mg CR; Urine Protein Random 23 mg/dL
[2023-08-21 11:56] VITALS: BP 114/73; PULSE 99
== END 2023-08-21 12:27 | disposition home or self-care (01) ==
LOC: OPOB 10:30 → OBGYN 10:31
PROVIDERS: PCP Family Medicine; Visit Provider Obstetrics & Gynecology
DX: O16.9 Unspecified maternal hypertension, unspecified trimester (principal); Z3A.00 Weeks of gestation of pregnancy not specified; R10.9 Unspecified abdominal pain
CPT/HCPCS: 59025; 76819; 82570; 84156; 99211

== ENCOUNTER → 2023-08-22 08:45 | Outpatient (BNVA) | payer MEDICAID, SELFPAY | PROVIDERS: PCP Family Medicine; Visit Provider Obstetrics & Gynecology | DX: O09.899 Supervision of other high risk pregnancies, unspecified trimester (principal) | CPT/HCPCS: 81000 ==

== ENCOUNTER → 2023-08-25 08:04 | Outpatient (BNVA) | payer MEDICAID, SELFPAY | PROVIDERS: PCP Family Medicine; Visit Provider Obstetrics & Gynecology | DX: Z36.89 Encounter for other specified antenatal screening (principal); O16.3 Unspecified maternal hypertension, third trimester; Z3A.37 37 weeks gestation of pregnancy | CPT/HCPCS: 76819 ==

== ENCOUNTER 2023-08-25 09:40 | Outpatient (CLI) | payer MEDICAID, SELFPAY ==
[2023-08-25 09:40] VITALS: BMI 39.6
[2023-08-25 09:56] VITALS: BP 140/82; PULSE 96
[2023-08-25 10:17] VITALS: BP 135/78; PULSE 101
== END 2023-08-25 10:21 | disposition home or self-care (01) ==
LOC: OPOB 09:43 → OBGYN 09:45
PROVIDERS: PCP Family Medicine; Visit Provider Obstetrics & Gynecology
DX: O16.9 Unspecified maternal hypertension, unspecified trimester (principal); Z3A.00 Weeks of gestation of pregnancy not specified
CPT/HCPCS: 59025; 84315

== ENCOUNTER 2023-08-25 17:29 | Outpatient (CLI) | payer MEDICAID, SELFPAY ==
[2023-08-25] VITALS (10 sets, daily range): BP systolic 126–151; BP diastolic 59–87; PULSE 88–109; RESP 15; TEMP 36.6; BMI 39.6
--- NOTE | 2023-08-25 18:15 | USR_ITS ---
PROCEDURE INFORMATION: Exam: US , Limited Exam date and time: 08/25/2023 7:22 PM Age: 23 years old Clinical indication: Lmp or gestational age (in weeks): Order says position ; LABS AND CLINICAL REPORTS: Last menstrual period start date: 12/08/2022 Gestational age (Established): 37 w 1 d Estimated due date (Established): 09/14/2023 TECHNIQUE: Imaging protocol: Real-time ultrasound of the maternal uterus with image documentation. Exam focused on the clinical indication. COMPARISON: US OB BPP NST [id number] 08/25/2023 8:09 AM FINDINGS: Gestation: Single intrauterine in cephalic presentation. heart rate: 131 bpm presentation: Cephalic Placenta: Posterior and Right and Fundal grade 2 placenta without previa. Amniotic fluid: Amniotic fluid volume is normal. Amniotic fluid index: RAJ is 22.15 cm. BIOMETRY: Gestational age (AUA): 37 w 1 d Estimated due date (AUA): 09/14/2023 MATERNAL: Cervix: Cervical length measures 3.19 cm. US/US OB limited [id number] IMPRESSION: Single intrauterine in cephalic presentation.
[2023-08-25 20:37] LABS: Nitrazine Paper, PH Negative
== END 2023-08-25 20:25 | disposition home or self-care (01) ==
LOC: OPOB 17:35 → OBGYN 17:36
PROVIDERS: Obstetrics & Gynecology; PCP Family Medicine; Visit Provider Obstetrics & Gynecology
DX: O26.899 Other specified pregnancy related conditions, unspecified trimester (principal); Z3A.00 Weeks of gestation of pregnancy not specified; R10.9 Unspecified abdominal pain
CPT/HCPCS: 59025; 76815; 83986; 99211

== ENCOUNTER 2023-08-26 08:57 | Outpatient (CLI) | payer MEDICAID, SELFPAY ==
[2023-08-26] VITALS (11 sets, daily range): BP systolic 126–140; BP diastolic 61–95; PULSE 88–110; BMI 40.4
== END 2023-08-26 11:42 | disposition home or self-care (01) ==
LOC: OPOB 08:58 → OBGYN 08:59
PROVIDERS: PCP Family Medicine; Visit Provider Obstetrics & Gynecology
DX: O26.899 Other specified pregnancy related conditions, unspecified trimester (principal); Z3A.00 Weeks of gestation of pregnancy not specified; R10.9 Unspecified abdominal pain
CPT/HCPCS: 59025; 99211

== ENCOUNTER 2023-09-01 19:54 | Outpatient (CLI) | payer MEDICAID, SELFPAY ==
[2023-09-01 19:57] VITALS: BMI 40.9
[2023-09-01 20:00] VITALS: BP 148/102; PULSE 121
[2023-09-01 20:14] LABS: Nitrazine Paper, PH Negative
[2023-09-01 20:19] VITALS: BP 145/76; PULSE 109
[2023-09-01 20:28] VITALS: BP 133/68; PULSE 113
[2023-09-01 20:45] VITALS: BP 133/68; PULSE 113; RESP 15; TEMP 36.6
== END 2023-09-01 20:42 | disposition home or self-care (01) ==
LOC: OPOB 19:54 → OBGYN 19:56
PROVIDERS: PCP Family Medicine; Visit Provider Obstetrics & Gynecology
DX: O26.899 Other specified pregnancy related conditions, unspecified trimester (principal); Z3A.00 Weeks of gestation of pregnancy not specified; N89.8 Other specified noninflammatory disorders of vagina
CPT/HCPCS: 59025; 83986; 99211

== ENCOUNTER → 2023-09-03 14:45 | Outpatient (BNVA) | payer MEDICAID, SELFPAY | PROVIDERS: PCP Family Medicine; Visit Provider Obstetrics & Gynecology | DX: O09.899 Supervision of other high risk pregnancies, unspecified trimester (principal); Z34.90 Encounter for supervision of normal pregnancy, unspecified, unspecified trimester | CPT/HCPCS: 76815; 76819; 81000 ==

== ENCOUNTER 2023-09-09 05:25 | Inpatient (IN) | payer MEDICAID, SELFPAY ==
--- NOTE | 2023-06-19 15:51 | P.CONIM_ITS ---
Providers/Reason For Consult 2 Consulting Physician/Specialty*: Dr. Lopez Reason for Consult*: Visual and auditory loss Attending Physician: Adryan Lopez MD Primary Care Provider: Fay Sommer DO History of Present Illness History of Present Illness Delfina Oleary is a 23 year old female seen stat in labor and delivery for altered neurologic state. Dr. Lopez called me because the patient is unable to see clearly out of her left eye since this morning and she has lost hearing in her left ear. She has had continuous headaches for the last several months. Her headaches are severe, throbbing and pounding. I saw her 07/25/2022 for severe headaches that started after the of her daughter in March 2022. Her pain was throbbing, holocephalic, nauseating and sometimes causing vomiting. She had bilateral blurred vision, lightheadedness, photophobia and phonophobia. 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 Her previous was complicated by preeclampsia. While she was in October 2021 she had a terrible headache, worst of her life, accompanied by left-sided weakness. On my examination that day I did a careful funduscopic exam and found normal disc margins with normal venous pulsations, no sign of papilledema. I started her on amitriptyline and she was unable to come for her appointment a month later in August 2022 and I have not seen her since then. She came to the ER with a syncopal episode 09/05/2022 and was referred back to my office but did not make an appointment. She believes it was in October that she attended an eye appointment at [facility] and was discovered to have papilledema. She was referred to Dr. Soriano who arranged for her to have a lumbar puncture performed at the surgery center. She does not know the results. She was referred to an felt hat mellowing machine operator at [facility], Rebecca Garcia MD, who has been seeing her at 2 to 4-week intervals. An MRV was ordered but she was not able to travel to the appointment and she was doing better at the time that that was scheduled. She continued to have severe headaches and a very high blood pressure with concern for preeclampsia. She was on Diamox 500 mg twice daily and on her June 18 appointment, Dr. Garcia increased Diamox 1500 mg a day. Her headaches have continued unabated. Its only been a day since she increased her Diamox. The last time she had her eyes checked by Dr. Soriano her pressure was down. Review of Systems 2 Const: Denies: fever(s), change in weight or fatigue Eyes: Reports: change in vision, blurry vision, blind spots and photophobia; Denies: eye discomfort, seeing flashes or other (Glaucoma) ENMT: Reports: change in hearing and tinnitus; Denies: hoarseness, sinus pain or other (Loss of taste/smell) Card: Denies: chest pain, palpitations, syncope or other (Calf cramps) Resp: Denies: dyspnea, non-productive cough, wheezing or hemoptysis GI: Denies: abdominal pain, nausea, heartburn, diarrhea, constipation or hematochezia : Denies: urinary frequency or urinary incontinence Musc: Denies: neck pain, muscle weakness or other (Muscle pain) Skin/Breast: Denies: rash, new lesions or breast mass Neuro: Reports: headache(s) and other (Sleep Apnea); Denies: weakness in extremities, sensory changes, difficulty walking, Slurred speech present or seizure-like activity Psych: Reports: difficulty concentrating; Denies: depression, irritability, memory loss or other (Personality changes) Endo: Denies: polyuria, polydipsia, excessive sweating or change in body appearance Jaciel/Lymph: Denies: easy bruising, easy bleeding or enlarged lymph nodes Medications/Allergies Home Medications Medication Instructions Recorded Confirmed Last Taken Type acetazolamide 500 mg 1,000 mg PO BID 03/25/23 06/07/23 06/07/23 History capsule,extended release aspirin 81 mg capsule 81 mg PO DAILY 06/07/23 06/07/23 06/07/23 History Allergies Allergy/AdvReac Type Severity Reaction Status Date / Time adhesive tape Allergy burning Verified 06/07/23 22:27 skin, rash flare up PFSH Acute 2 PFSH: Medical History Colitis just finished abx 01/24/2023 Idiopathic intracranial hypertension (~07/2022) Kelsey at [facility]--neuro-opthamologist Terry Lugo at [facility] No pertinent past medical history neghx:dm,dvt/pe PCP: Dr Sommer Supervision of other high-risk Surgical History S/P breast biopsy Benign cyst - bilateral breasts Family History Father Seizures Hypertension Stroke Mother No problems noted. Grandmother Hypertension paternal Grandfather Hypertension paternal Diabetes paternal Family/Other Diabetes paternal uncle Denies family history of Colon cancer Ovarian cancer Heart disease Hypercholesteremia Breast cancer Uterine cancer Thyroid disease Social History Smoking and tobacco/nicotine status: never used tobacco/nicotine Substance/Drug Use: never Female Reproductive History: : 3 Vitals/I&O/Wt Last Vital Signs Pulse 80 06/19/23 14:29 Resp 17 06/19/23 12:33 BP 121/66 06/19/23 14:29 O2 Del Method Room Air 06/19/23 13:33 Weight last 48 hrs Weight 212 lb Physical Exam 2 Narrative: GENERAL: The patient was well-nourished with a healthy appearance and appropriately groomed. MENTAL STATUS: Orientation was full to 10 of 10 questions of orientation. Speech was fluent without word hesitation. No difficulty following a complex command. The affect was euthymic. CRANIAL NERVES: Funduscopic exam reveals mild blurring of the disc margins on both sides with no hemorrhages. Visual woodson full to confrontation. She was able to read small print out of the left eye. Visual acuity was not tested. She could hear a very softly whispered number in each ear. Speech was clear and fluent. MOTOR: There was no drift of the extended arms. Fine movements in the hands were rapid and symmetric. Sales Representative Metals were strong. SENSATION: Pin, touch intact in the four extremities distally. COORDINATION: Tfvmte-idzw-olnajc, zqzu-hhyc-gaad and rapid alternating movements were performed smoothly without evidence of tremor or ataxia. DEEP TENDON REFLEXES: 2/4 throughout. GAIT: Not tested HEENT: Normocephalic without dysmorphic features. Conjunctivae were not injected and sclerae were nonicteric. NECK: Carotid upstroke was strong bilaterally without bruits. The thyroid was not enlarged and there were no palpable lymph nodes. CHEST: Clear to auscultation. CARDIOVASCULAR: The heart sounds were normal without murmur or gallop. Regular rate and rhythm. EXTREMITIES: There was no edema or cyanosis. The skin was unremarkable. The spine exhibited normal thoracic kyphosis and normal lumbar lordosis without deformities. Data 06/19/23 13:14 06/19/23 13:14 A&P Assessment and plan (1) Idiopathic intracranial hypertension: Benign intracranial hypertension diagnosed by ophthalmology and managed by ophthalmology at [place]. She has new symptoms of left-sided hearing loss and reduced vision in the left eye but these changes are mild as demonstrated on exam as she is able to read small print out of the left eye and was able to hear a softly whispered number in the left ear. I think at this point she needs to go ahead and have MR venogram to make sure that she does not have central venous thrombosis as a cause for her intracranial hypertension. Recommend continuing Diamox 500 mg 3 times a day. She needs to follow-up with her felt hat mellowing machine operator at [facility] and with Dr. Soriano locally for ongoing monitoring of her visual woodson. Once Dr. Lopez is comfortable that she does not have preeclampsia and her MR venogram is completed I think she can go home. 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
[2023-09-09] VITALS (20 sets, daily range): BP systolic 109–135; BP diastolic 50–76; PULSE 52–81; RESP 16–17; TEMP 36.8; O2SAT 93–100; BMI 41.1
[2023-09-09 06:00] LABS: Basophils # 0.1 10^3/uL (0.0-0.1); Basophils % 0.9 %; Eosinophils # 0.2 10^3/uL (0.0-0.8); Eosinophils % 1.4 %; Hematocrit 31.2 % (36-47); Lymphocytes # 2.7 10^3/uL (0.8-4.8); Lymphocytes % 21.7 %; Mean Corpuscular HGB Conc 29.2 g/dL (30-55); Mean Corpuscular Hemoglobin 22.6 pg (27-33); Mean Corpuscular Volume 77.6 fl (85-98); Monocytes # 0.7 10^3/uL (0.2-0.9); Monocytes % 5.8 %; Neutrophils # 8.27 10^3/uL (1.8-7.7); Neutrophils % 66.4 %; Nucleated Red Blood Cells # 0.1 /100WBC; Nucleated Red Blood Cells % 0.6 %; Platelet Count 209 10^3/cmm (157-399); Red Blood Count 4.02 10^6/uL (3.85-5.65); Red Cell Distribution Width 18.4 % (12.1-15.1); White Blood Count 12.48 10^3/uL (3.29-11.43)
[2023-09-09] MEDS: metoclopramide 5 mg/mL SDV 2 mL 10 MG IVP (07:00)
[2023-09-09] MEDS: citric acid-sodium citrate 30 mL UDC PO (07:00)
[2023-09-09] MEDS: famotidine 20 mg/2 mL INJ IVP (07:00)
[2023-09-09] MEDS: BUPivacaine liposome 266 MG, BUPivacaine 0.25% 30 ML in sodium chloride 0.9% 50 ML 100 MG INFILTRATI (07:20)
--- NOTE | 2023-09-09 08:00 | PC.NURSE ---
Pt in OR
--- NOTE | 2023-09-09 08:57 | PM.OP ---
Operative Report Date of procedure: September 09, 2023 Pre-op diagnosis: Term Desire permanent sterilization Post-op diagnosis: Term delivered Desire permanent sterilization Procedure done: Primary low-transverse delivery Bilateral salpingectomy Specimens removed/disposition: Left and right fallopian tubes Surgeon: Adryan Lopez MD Estimated blood loss (mL): 800 IV fluids (mL): 1,700 Urine output (mL): 300 Complications: None Procedure: After assuring informed consent, the patient was taken to the operating room and anesthesia was initiated. She was placed in the dorsal supine position with a left lateral tilt. The abdomen was prepped and draped in the usual sterile manner. A time-out procedure was performed. Preop antibiotics was administered. A Pfannenstiel skin incision was made with the scalpel and carried through to the underlying layer of fascia with the Bovie. The fascia was nicked in the midline and the incision extended laterally with the Pina scissors. The superior aspect of the fascial incision was then grasped with Juvenal clamps and elevated and the underlying rectus muscle dissected off bluntly and sharp with pina scissors. Attention was then turned to the inferior aspect of the incision which, in similar fashion, was grasped and tented up with Juvenal clamps and the rectus muscle dissected bluntly. The rectus muscles were then in the midline and the peritoneum identified, tented up and entered sharply with Metzenbaum scissors. The peritoneal incision was then extended superiorly and inferiorly with good visualization of the bladder. The Cliff O retractor was then inserted and the vesicouterine peritoneum identified, grasped with pickups and entered sharply with Metzenbaum scissors. This incision was then extended laterally and the bladder flap created digitally. The uterus incised in a low transverse fashion with the scalpel. The uterine incision was then extended with the bandage scissors. The infant was then delivered in the cephalic presentation atraumatically. The nose and the mouth were suctioned with bulb and the cord clamped and cut. The cord was normal and had three vessels. Amniotic fluid was clear. The placenta was then removed manually and the uterus exteriorized and cleared of all clots and debris. The uterine incision was repaired with 0 Vicryl in a running-locked fashion. A second layer of the same suture was used to obtain excellent hemostasis. The gutters were cleared of all clots. The left fallopian tube was identified and grasped with a Mitesh clamp. The tube was then followed out to the fimbria. Alongside the mesosalpinx ligament with Voyant Open Fusion Device. The tube was serially clamped sealed and cut off the mesosalpinx ligament. The specimen was sent to pathology. Excellent hemostasis was noted. The same procedure was performed on the opposite fallopian tube. The uterus was then returned to the abdomen. The rectus muscles were approximated with 3-0 chromic gut. Exparel was infiltrated at the incision site. The fascia was reapproximated with 0 Vicryl in an interrupted running fashion. The skin was closed with Insorb?s subcuticular absorbable serene. The patient tolerated the procedure well. The sponge, lap and needle counts were correct times three.
--- NOTE | 2023-09-09 09:45 | PC.NURSE ---
pt on bed, this nurse taking pt from OR to room via bed. pt holding infant in arms.
[2023-09-09] MEDS: ondansetron 2 mg/ML SDV 2 mL 4 MG IVP ×2 (11:00→15:50)
--- NOTE | 2023-09-09 13:10 | PC.NURSE ---
pt has IHH, pt is unable to push due increased fluid on brain.
[2023-09-09] MEDS: HYDROcodone-acetaminophen 5-325 mg Tablet PO (14:49)
[2023-09-09] MEDS: dextrose 5%-lactated ringers 1,000 ML 125 ML IV (14:49)
[2023-09-09] MEDS: ketorolac 30 mg/mL INJ IVP ×2 (14:49→19:51)
[2023-09-09] MEDS: simethicone 80 mg Chew PO (19:50)
[2023-09-09] MEDS: docusate sodium 100 mg Capsule PO (19:52)
[2023-09-09 20:49] LABS: Hematocrit 28.1 % (36-47); Mean Corpuscular HGB Conc 28.1 g/dL (30-55); Mean Corpuscular Hemoglobin 22.8 pg (27-33); Mean Corpuscular Volume 81.2 fl (85-98); Mean Platelet Volume 13.5 fL (7.4-10.4); Platelet Count 161 10^3/cmm (157-399); Red Blood Count 3.46 10^6/uL (3.85-5.65); Red Cell Distribution Width 18.6 % (12.1-15.1); White Blood Count 12.81 10^3/uL (3.29-11.43)
[2023-09-10] VITALS (18 sets, daily range): BP systolic 103–142; BP diastolic 59–94; PULSE 81–100; RESP 16–18; TEMP 36.9–37; O2SAT 96–98
[2023-09-10] MEDS: HYDROcodone-acetaminophen 5-325 mg Tablet PO ×3 (05:40→15:46)
[2023-09-10] MEDS: ketorolac 30 mg/mL INJ IVP ×2 (05:48→18:45)
[2023-09-10] MEDS: dextrose 5%-lactated ringers 1,000 ML 125 ML IV (05:50)
[2023-09-10 06:14] LABS: Basophils % 0.4 %; Eosinophils # 0.2 10^3/uL (0.0-0.8); Eosinophils % 1.8 %; Hematocrit 26.1 % (36-47); Lymphocytes # 2.3 10^3/uL (0.8-4.8); Lymphocytes % 23.1 %; Mean Corpuscular HGB Conc 28.7 g/dL (30-55); Mean Corpuscular Hemoglobin 22.9 pg (27-33); Mean Corpuscular Volume 79.6 fl (85-98); Monocytes # 0.6 10^3/uL (0.2-0.9); Monocytes % 6.1 %; Neutrophils # 6.55 10^3/uL (1.8-7.7); Neutrophils % 66.1 %; Nucleated Red Blood Cells # 0.1 /100WBC; Nucleated Red Blood Cells % 0.5 %; Platelet Count 153 10^3/cmm (157-399); Red Blood Count 3.28 10^6/uL (3.85-5.65); Red Cell Distribution Width 18.6 % (12.1-15.1); White Blood Count 9.91 10^3/uL (3.29-11.43)
[2023-09-10 06:18] LABS: Glucose Point of Care 115 mg/dL (70-110)
--- NOTE | 2023-09-10 06:21 | PC.NURSE ---
Nurses Phi Agarwal RN, Munira Overton RN, Maria Victoria Toth, Amrit Ricks arrived to pt room after pt pulled emergency light. Entered bathroom to find pt stating she was dizzy, lightheaded, ringing in ears, and nauseous. Amrit Ricks took vital signs at approx 0553 BP 92/59, 98%, 62 HR. Pt stated she wanted to get back in bed after having her sit there for 2 min. Phi Agarwal and Munira Overton attempted to get pt up from toilet to walk her to bed. Pt stood to her feet and passed out. Munira Overton and Phi Agarwal lowered her to the toilet. Pt head was slumped over. Head was leaned back to open airway. Pt was sternal rubbed by Munira Overton and Phi Agarwal until she opened her eyes approx. 10 seconds. Pt stated name, , place, and time. Pt asked what happened and could not remember. Rapid response was called by Maria Victoria Toth. Security was first to arrive and assisted Phi Agarwal and Munira Overton with pt back to bed. Rapid response team then arrived at approx 0555. V/s were taken 133/77, 99%, HR 101. Dr. Lopez was then called by Amrit Ricks. Orders were received for a CBC and for pt to eat. Blood sugar was taken by Munria Overton resulting in 115. Dr. Buck arrived and assessed pt. Labs were ordered and stated he would be collaborating with Dr. Lopez since pt was currently stable. V/s were taken again 108/64, 97%, HR 87.
[2023-09-10 06:24] LABS: Reflex FDPQ test REFLEX FDP QUEST TES
--- NOTE | 2023-09-10 06:29 | ECG_ITS ---
[facility] Test Date: 2023-09-10 Pat Name: Delfina Oleary Department: Room: OB11 Gender: Female Photographer Motion Picture: : 2000 Requested By: Mesfin Larry Order Number: [id number] Clifford MD: Abrahan Dobbs M.D. Measurements Intervals [place] Rate: 91 P: 13 [place]: 149 QRS: 43 QRSD: 106 T: 15 QT: 349 QTc: 431 Interpretive Statements SINUS RHYTHM Compared to ECG 08/19/2023 15:24:07 Sinus tachycardia no longer present Electronically Signed On 09-10-2023 9:12:01 PRIVACY OFFICER by Abrahan Dobbs M.D. [id number]
[2023-09-10 06:30] LABS: Alanine Aminotransferase 10 U/L (0-33); Albumin Level 2.9 g/dL (3.5-5.2); Alkaline Phosphatase 69 U/L (35-105); Aspartate Amino Transferase 13 U/L (0-32); Blood Urea Nitrogen 8 mg/dL (6-20); Calcium 7.8 mg/dL (8.5-10.5); Carbon Dioxide 21 mmol/L (22-29); Chloride 106 mmol/L (98-107); Creatinine Clr Calc Pharmacy 170.7264; Glucose 99 mg/dL (65-115); Osmolality Calculated 286 mOsm/kg (285-295); Sodium 139 mmol/L (136-145); Total Bilirubin 0.2 mg/dL (0.15-1.2); Total Protein 4.9 g/dL (6.6-8.7)
[2023-09-10 06:35] LABS: Troponin(5th) Baseline 7 ng/L (0-10)
--- NOTE | 2023-09-10 06:39 | XRR_ITS ---
PROCEDURE INFORMATION: Exam: XR Chest Exam date and time: 09/10/2023 6:50 AM Age: 23 years old Clinical indication: Other: Syncope; Prior surgery; Surgery date: <1 month; Surgery type: C section TECHNIQUE: Imaging protocol: Radiologic exam of the chest. Views: 1 view. COMPARISON: CR XR chest 1V portable [id number] 08/19/2023 4:25 PM FINDINGS: Lungs: Hypoinflation, without acute airspace disease. Pleural spaces: No pleural effusion. Heart/Mediastinum: No cardiomegaly. Bones/joints: Unremarkable. XR/XR chest 1V portable [id number] IMPRESSION: No acute airspace or pleural disease.
--- NOTE | 2023-09-10 06:40 | P.CONIM_ITS ---
Providers/Reason For Consult 2 Consulting Physician/Specialty*: Obs/angle roll operator Dr Lopez Reason for Consult*: Syncope and collapse Attending Physician: Adryan Lopez MD Primary Care Provider: Fay Sommer DO History of Present Illness History of Present Illness Delfina Oleary is a 23 year old female with IIH, status post yesterday morning had a rapid response at shift change this morning when she became pre-syncopal after getting up to the restroom and then had syncope and collapse trying to stand up to get back to bed. Regained consciousness after brief unconsciousness. Was helped into bed. Systolic blood pressure when measured was found down into the 90s. Prior to that baseline 100 and teens- 120s. She reports that she got lightheaded. Denies past history of orthostatic hypotension. Denies other new symptoms, has had some unchanged soreness at lower abdomen. Denies noticing any new/worsened bleeding. Denies chest pain or pressure. Not short of breath. She is awake and alert, providing history. Denies any headache. Review of Systems 2 Const: Reports: other (Got lightheaded when she was standing/walking. ); Denies: fever(s), chills or body aches Eyes: Denies: change in vision Card: Reports: pre-syncope; Denies: chest pain, edema or orthopnea Resp: Denies: dyspnea GI: Denies: nausea, vomiting or diarrhea : Reports: other (Soreness in lower abdomen unchanged. ) Musc: Denies: extremity pain or extremity swelling Skin/Breast: Denies: rash Neuro: Denies: headache(s), numbness in extremities, weakness in extremities, confusion, behavioral changes or difficulty communicating thoughts Medications/Allergies Home Medications Medication Instructions Recorded Confirmed Last Taken Type acetazolamide 500 mg 1,500 mg PO BID 06/23/23 09/09/23 08/02/23 History capsule,extended release 1 tab PO DAILY 08/02/23 09/09/23 08/02/23 History Allergies Allergy/AdvReac Type Severity Reaction Status Date / Time adhesive tape Allergy burning Verified 09/09/23 06:44 skin, rash flare up Current Medications Generic Name Dose Route Start Last Admin Trade Name Freq PRN Reason Stop Dose Admin Hydrocodone Bitart/Acetaminophen 1 - 2 tab 09/09/23 13:14 09/10/23 05:40 Hydrocodone-Acetaminophen 5-325 Mg Tablet PO 2 tab Q4H PRN Administration MODERATE TO SEVERE PAIN Docusate Sodium 100 mg 09/09/23 18:00 09/09/23 19:52 Docusate Sodium 100 Mg Capsule PO 100 mg BID GOOD Administration Dextrose/Lactated Ringer's 1,000 mls @ 125 mls/hr 09/09/23 13:15 09/10/23 05:51 Dextrose 5%-Lactated Ringers IV Not Given .Q8H GOOD Ketorolac Tromethamine 30 mg 09/09/23 14:05 09/10/23 05:48 Ketorolac 30 Mg/Ml Inj IVP 09/10/23 08:06 30 mg Q6H GOOD Administration Ondansetron HCl 4 mg 09/09/23 13:14 09/09/23 15:50 Ondansetron 2 Mg/Ml Sdv 2 Ml IVP 4 mg Q4H PRN Administration NAUSEA AND VOMITING Simethicone 80 mg 09/09/23 13:14 09/09/23 19:50 Simethicone 80 Mg Chew PO 80 mg QID PRN Administration Gas distention PFSH Acute 2 PFSH: Medical History Colitis just finished abx 01/24/2023 No pertinent past medical history neghx:dm,dvt/pe PCP: Dr Sommer Idiopathic intracranial hypertension (~07/2022) [facility] at [facility]--neuro-opthamologist Terry Lugo at [facility] Supervision of other high-risk Surgical History S/P breast biopsy Benign cyst - bilateral breasts Family History Father Seizures Hypertension Stroke Mother No problems noted. Grandmother Hypertension paternal Grandfather Hypertension paternal Diabetes paternal Family/Other Diabetes paternal uncle Denies family history of Colon cancer Ovarian cancer Heart disease Hypercholesteremia Breast cancer Uterine cancer Thyroid disease Social History Smoking and tobacco/nicotine status: never used tobacco/nicotine Substance/Drug Use: never Female Reproductive History: : 3 Vitals/I&O/Wt Last Vital Signs Temp 98.4 F 09/10/23 04:00 Pulse 100 09/10/23 04:00 Resp 18 09/10/23 04:00 BP 118/72 09/10/23 04:00 Pulse Ox 98 09/10/23 04:00 O2 Del Method Room Air 09/10/23 04:00 09/09/23 09/09/23 09/10/23 14:59 22:59 06:59 Intake Total 50 / 50 710.417 / 760.417 0 / 760.417 Output Total 350 / 350 600 / 950 100 / 1050 Balance -300 / -300 110.417 / -189.583 -100 / -289.583 Weight last 48 hrs Weight 105.233 kg Physical Exam 2 Const: COMMON NORMALS: patient oriented x3 and alert GENERAL APPEARANCE: c ooperative ORIENTATION/CONSCIOUSNESS: Yes awake HENMT: COMMON NORMALS: oropharynx normal Neck/C-Spine: COMMON NORMALS: no JVD Resp: COMMON NORMALS: normal respiratory effort and clear to auscultation bilaterally AUSCULTATION: clear to auscultation bilaterally Cardio: COMMON NORMALS: no JVD, regular rhythm, S1 normal heart sound present, S2 normal heart sound present and No murmurs present (Cardio) RHYTHM: regular rhythm HEART SOUNDS: S1 normal heart sound present and S2 normal heart sound present GI: COMMON NORMALS: Normal to inspection, nondistended, normoactive bowel sounds present, Soft to palpation and non-tender PALPATION: Yes Soft to palpation Extremity: COMMON NORMALS: no joint enlargement and no pedal edema Neuro: COMMON NORMALS: patient oriented x3 and moves all extremities S ENSORIUM/ORIENTATION: Yes alert Skin: COMMON NORMALS: no rashes or lesions noted GENERAL SKIN EXAM: no rashes or lesions noted Urinary Catheter Management: Fonseca: Cath Placed During This Visit: yes, but has since been removed by the nurse Reason for Continuing Indwelling Catheter: Decision to DC Catheter Urinary Catheter Date of Insertion: 09/09/23 Urinary Catheter Time of Insertion: 07:15 Date Urinary Catheter Removed: 09/10/23 Time Urinary Catheter Discontinued: 01:38 Data 09/10/23 06:05 09/10/23 06:05 A&P Assessment and plan (1) Syncope and collapse: Syncope and collapse in her room when trying to go to the bathroom and trying to stand up. Blood pressure measured at that time decreased. Denies chest pain or pressure. Not short of breath. Reviewed vitals, reviewed prior CBC, reviewed gynecology note. Discussed with integrated circuits inspector. She did feel lightheaded which is new for her, does not have history of orthostatic hypotension. Requested bed- rest. Reviewing her medications did not really have anything that should cause orthostasis. Has been n.p.o. since , but has been receiving some IV fluid support with LR. Continue for now. Blood pressure did improve up into 130s systolic with laying down in bed. Still no chest pain or pressure, not short of breath. Lightheadedness improved. She did not notice any worsening or new heavy bleeding. Is noted to have some leukocytosis yesterday, she is afebrile, CBC repeated, with noted WBC normalized. However, noted acute blood loss anemia compared to baseline with hemoglobin 9-10, it was down to 7.9 last night, repeat today slightly less down to 7.5. Also noted some thrombocytopenia 153. Discussed with gynecology, will request DIC profile, peripheral smear, troponin series. No LE swelling, no SOB, chest pain, cough, lower likelihood VTE, check DDimer. EKG with NSR. Per discussion with gynecology amniotic fluid embolism likelihood low with her presentation. Has had no respiratory distress, no chest pain or pressure, blood pressure did improve with just laying down. Continue to monitor. Added cardiac monitoring. Gynecology request consultation. Signed out to morning hospitalist team. (2) Hypotension: No obvious medications that should contribute to orthostasis. Noted acute blood loss anemia, gynecology is going to transfuse RBC. Monitor for any complications with transfusion, transfusion reaction, taco, trauma, etc. Requested follow-up CBC. Additional workup as above. Bedrest. Telemetry monitoring. Check lactic acid. (3) Acute anemia: Hemoglobin down to 7.9 last night compared to baseline 9-10. This morning slight worsening down to 7.5. Some thrombocytopenia noted as well. As above requesting DIC profile, D-dimer, peripheral smear. Will hold NSAIDs. Hemoccult. Requesting LDH, haptoglobin. Per discussion with gynecology she is going to get RBC transfusion. Requested follow-up hemoglobin again for this afternoon. Noted microcytic anemia, will request iron studies. Plan S/p C section yesterday morning. IIH: s/p and could not push. He is awake and alert, lucid. Provides history and review of systems. Denies any headache. This does not appear to be an active issue at current time, however, consider follow-up in case of headache, changes in mental status, or other concerning symptoms. Consult Attestations 2 Medical Necessity Statement: Continue admission following , additional assessment after syncope and collapse, acute blood loss anemia, thrombocytopenia. Diagnoses Syncope and collapse R55 Hypotension I95.9 Acute anemia D64.9
[2023-09-10 06:46] LABS: INR 1.04 (0.8-1.2)
[2023-09-10 06:47] LABS: Partial Thromboplastin Time 23.2 SECONDS (23.9-36.7)
[2023-09-10 06:48] LABS: Fibrinogen 327 mg/dL (174-498)
[2023-09-10 06:53] LABS: D Dimer 3.16 ug/mLFEU (0-0.59)
[2023-09-10 07:18] LABS: Lactate Dehydrogenase 213 U/L (135-214)
[2023-09-10 07:33] LABS: Ferritin 9 ng/mL (15-150); Iron 56 ug/dL (37-145); Percent Saturation 13.2 % (20-50); Total Iron Binding Capacity 422 mcg/dl; Unsaturated Iron Binding 366 ug/dL (112-347)
[2023-09-10 07:48] LABS: LAB Peripheral Smear Sent for Review
[2023-09-10 08:09] LABS: Lactic Sepsis W/Reflex 2.4 mmol/L (0.5-2.2)
--- NOTE | 2023-09-10 08:09 | ECG_ITS ---
[facility] Test Date: 2023-09-10 Pat Name: Delfina Oleary Department: Room: OB11 Gender: Female Six Horse Hitch Driver: : 2000 Requested By: Mesfin Larry Order Number: [id number] Clifford MD: Abrahan Dobbs M.D. Measurements Intervals [place] Rate: 89 P: 27 IN: 139 QRS: 19 QRSD: 88 T: 17 QT: 338 QTc: 412 Interpretive Statements SINUS RHYTHM Compared to ECG 09/10/2023 06:29:03 No significant changes Electronically Signed On 09-10-2023 11:08:43 MECHANICAL DESIGN DRAFTER by Abrahan Dobbs M.D. [email or web address] hospitalBionic [email or web address] GmbHsumma health barberton [email or web address]/[id number]
[2023-09-10 08:16] LABS: Troponin 5 2HR 7.85 ng/L (0-10); Troponin 5 2HR Delta 0.85 ABS# (0-10)
--- NOTE | 2023-09-10 09:00 | P.PN_ITS ---
Subjective 2 Subjective: Mrs. Oleary is a 23-year-old female G3, P3 status post primary low-transverse delivery postoperative day 1. Refers doing better than last night. Called by nurse patient experienced an syncope episode when she went to the bathroom. Vitals/I&O/Wt Last Vital Signs Temp 98.4 F 09/10/23 04:00 Pulse 89 09/10/23 06:45 Resp 18 09/10/23 04:00 BP 103/63 09/10/23 06:45 Pulse Ox 97 09/10/23 06:45 O2 Del Method Room Air 09/10/23 04:00 09/09/23 09/10/23 09/10/23 22:59 06:59 14:59 Intake Total 710.417 / 760.417 700 / 1460.417 Output Total 600 / 950 100 / 1050 Balance 110.417 / -189.583 600 / 410.417 Weight last 48 hrs Weight 105.233 kg Physical Exam 2 Narrative: GA; alert and oriented x 3 HEENT: normal Breasts: engorged Nipples - skin intact Lungs; clear to auscultation Heart: regular rhythm, no murmurs. Abd: Appropriately tender. BS+. Uterine fundus below umbilicus. No Fundal Tenderness. incision minimal tenderness, incision clean and dry, no redness, pain or edema. Perineum: normal lochia. Extremities: no edema, no cyanosis, no tenderness. Urinary Catheter Management: Fonseca: Cath Placed During This Visit: yes, but has since been removed by the nurse Reason for Continuing Indwelling Catheter: Decision to DC Catheter Urinary Catheter Date of Insertion: 09/09/23 Urinary Catheter Time of Insertion: 07:15 Date Urinary Catheter Removed: 09/10/23 Time Urinary Catheter Discontinued: 01:38 Data 09/10/23 06:05 09/10/23 06:05 A&P Assessment and plan (1) delivery, delivered, current hospitalization: Ms. Oleary 23-year-old female G3, P3 status post primary low-transverse delivery postoperative day 1. Currently she is afebrile and hemodynamically stable. However last night she had a syncopal episode when she got up to go to the bathroom. Rapid response team was called. It was determined she had a hypotensive episode. IM hospitalist was consulted. Hemoglobin had decreased to 7.5 g/dL. (2) Anemia, : Plan Blood transfusion: 2 units of packed RBC. Continue postop observation. Attestations 2 Medical Necessity Statement*: In my professional opinion per admitting diagnosis. Coding Level of Care Code Acute Code for Chg Fwd Diagnoses delivery, delivered, current hospitalization O82 Anemia, O90.81
[2023-09-10 09:37] LABS: Reflex Lactate Order REFLEX LACTIC ORDERD
[2023-09-10] MEDS: docusate sodium 100 mg Capsule PO ×2 (09:50→18:45)
[2023-09-10] MEDS: ferrous sulfate EC 325 mg Tablet PO ×2 (09:50→18:45)
[2023-09-10] MEDS: prenatal vitamin Capsule 1 CAP PO (09:50)
--- NOTE | 2023-09-10 09:57 | W.PM.EVENTAC ---
Event Note Event Note: Assumed care of patient in consultation. Vital signs currently stable. She is receiving blood. I have asked for orthostatic blood pressures following this. At this point, I do not feel the need for telemetry as this would also necessitate moving the patient off the unit. I believe her care is appropriate on the unit she is on, with close monitoring of her vitals. Dimer was elevated, but she is not tachycardic currently. Oxygen saturation is 98% on room air. She has no pleuritic discomfort. This is likely secondary to recent . No fever or concerns of infection currently.
[2023-09-10 11:15] LABS: Lactic Acid level (Lactate) 1.1 mmol/L (0.5-2.2)
[2023-09-10] MEDS: simethicone 80 mg Chew PO ×2 (15:47→18:45)
[2023-09-10 16:34] LABS: Basophils # 0.1 10^3/uL (0.0-0.1); Basophils % 0.5 %; Eosinophils # 0.3 10^3/uL (0.0-0.8); Eosinophils % 2.1 %; Lymphocytes # 2.4 10^3/uL (0.8-4.8); Mean Corpuscular HGB Conc 30.3 g/dL (30-55); Mean Corpuscular Hemoglobin 24.7 pg (27-33); Mean Corpuscular Volume 81.6 fl (85-98); Monocytes # 0.9 10^3/uL (0.2-0.9); Monocytes % 7.5 %; Neutrophils # 8.43 10^3/uL (1.8-7.7); Neutrophils % 67.2 %; Nucleated Red Blood Cells # 0.1 /100WBC; Nucleated Red Blood Cells % 0.6 %; Platelet Count 173 10^3/cmm (157-399); Red Cell Distribution Width 18.2 % (12.1-15.1); White Blood Count 12.53 10^3/uL (3.29-11.43)
[2023-09-10 16:43] LABS: Slide Review Slide Review Perform
[2023-09-10] MEDS: oxyCODONE-APAP 5-325 mg Tablet PO (19:33)
[2023-09-11] MEDS: simethicone 80 mg Chew PO (00:25)
[2023-09-11 03:05] VITALS: BP 76/38; PULSE 107; RESP 18; TEMP 36.9; O2SAT 98
[2023-09-11 03:07] VITALS: BP 157/80; PULSE 82; RESP 16; O2SAT 98
[2023-09-11] MEDS: ibuprofen 800 mg tablet PO (03:36)
[2023-09-11 04:00] VITALS: BP 130/89; BP 137/90; BP 156/95; PULSE 82; O2SAT 97
[2023-09-11 04:48] LABS: Basophils # 0.1 10^3/uL (0.0-0.1); Basophils % 0.6 %; Eosinophils # 0.4 10^3/uL (0.0-0.8); Eosinophils % 2.9 %; Hematocrit 28.4 % (36-47); Lymphocytes # 2.3 10^3/uL (0.8-4.8); Lymphocytes % 18.7 %; Mean Corpuscular HGB Conc 30.3 g/dL (30-55); Mean Corpuscular Hemoglobin 24.5 pg (27-33); Mean Corpuscular Volume 80.9 fl (85-98); Mean Platelet Volume 12.8 fL (7.4-10.4); Monocytes # 0.8 10^3/uL (0.2-0.9); Monocytes % 6.8 %; Neutrophils # 8.07 10^3/uL (1.8-7.7); Neutrophils % 66.4 %; Nucleated Red Blood Cells % 0.2 %; Platelet Count 162 10^3/cmm (157-399); Red Blood Count 3.51 10^6/uL (3.85-5.65); Red Cell Distribution Width 17.4 % (12.1-15.1); White Blood Count 12.15 10^3/uL (3.29-11.43)
[2023-09-11 05:09] LABS: Alanine Aminotransferase 10 U/L (0-33); Albumin Level 2.8 g/dL (3.5-5.2); Alkaline Phosphatase 61 U/L (35-105); Anion Gap 15.9 (5-19); Aspartate Amino Transferase 12 U/L (0-32); Blood Urea Nitrogen 8 mg/dL (6-20); Calcium 8.2 mg/dL (8.5-10.5); Carbon Dioxide 22 mmol/L (22-29); Chloride 108 mmol/L (98-107); Creatinine Clr Calc Pharmacy 146.3369; Globulin 2.3 g/dL (1.3-4.6); Glomerular Filtration Rate 104.6 mL/min (90-130); Glucose 90 mg/dL (65-115); Osmolality Calculated 292 mOsm/kg (285-295); Potassium 3.9 mmol/L (3.5-5.1); Sodium 142 mmol/L (136-145); Total Bilirubin 0.2 mg/dL (0.15-1.2); Total Protein 5.1 g/dL (6.6-8.7)
--- NOTE | 2023-09-11 05:44 | PC.NURSE ---
0305- This nurse answered patient call light. Upon entering patient was standing at bedside shaking. Patient Stated Im cold, cant stop shaking, and feel like pins and needles in my hands this nurse instructed her to sit on the bed so that vitals could be taken. Vitals at 0305 were BP- 76/38, HR 107, O2- 98%, Temp- 98.4. this nurse stayed with patient at bedside. 030- patient reported to feel less shaky and warm blankets were given to help patient get warm,, patient reported those to have helped 030- vitals 157/80 BP, 82 HR, 98% O2. Patient feeling better at this time. This Nurse placed call to Dr. Lopez at 0310 to update of patient status and drop in blood pressure. No Answer, message left. This Nurse placed call to Dr. Lopez at 0320 to attempt to update no answer.
[2023-09-11 08:54] VITALS: RESP 16
[2023-09-11] MEDS: prenatal vitamin Capsule 1 CAP PO (08:54)
[2023-09-11] MEDS: oxyCODONE-APAP 5-325 mg Tablet PO (08:54)
[2023-09-11] MEDS: ferrous sulfate EC 325 mg Tablet PO (08:54)
[2023-09-11] MEDS: docusate sodium 100 mg Capsule PO (08:54)
[2023-09-11 09:00] VITALS: BP 135/84; PULSE 86; RESP 16; TEMP 36.8
--- NOTE | 2023-09-11 09:18 | P.PN_ITS ---
Documented by User: TEQUILA Olivares STDINGRID 09/11/23 10:04 Subjective 2 Subjective: Patient sitting up in chair holding her baby this morning. Mrs. Oleary states that she has been moving positions when getting up very slowly. She has reported slight dizziness and low blood pressure when getting up. She denies pain at this time, and plans to try to shower later this afternoon. Medications: Reviewed: Yes Vitals/I&O/Wt Last Vital Signs Temp 98.4 F 09/11/23 03:05 Pulse 82 09/11/23 04:00 Resp 16 09/11/23 08:54 BP 156/95 09/11/23 04:00 Pulse Ox 97 09/11/23 04:00 O2 Del Method Room Air 09/11/23 03:07 09/10/23 09/11/23 09/11/23 22:59 06:59 14:59 Output Total 300 / 900 Balance -300 / -100 Physical Exam 2 Narrative: GENERAL; alert and oriented x 3 Neck supple, no lymphadenopathy Lungs; clear to auscultation Heart: regular rhythm, no murmurs. Abd: incision minimal tenderness. Extremities: no cyanosis, no tenderness. Edema 2+ noted. Urinary Catheter Management: Fonseca: Cath Placed During This Visit: yes, but has since been removed by the nurse Reason for Continuing Indwelling Catheter: Decision to DC Catheter Urinary Catheter Date of Insertion: 09/09/23 Urinary Catheter Time of Insertion: 07:15 Date Urinary Catheter Removed: 09/10/23 Time Urinary Catheter Discontinued: 01:38 Data 09/11/23 04:40 09/11/23 04:40 A&P Assessment and plan (1) Syncope and collapse: Slow position changes with movement. Slight dizziness reported when standing up. (2) Hypotension: No obvious medications that should contribute to orthostasis. Received 2 units of RBCs 09/10/23. Hbg noted to be 8.6 this am. (3) Acute anemia: Noted microcytic anemia, will request iron studies. Iron level WNL at 56. Coding Level of Care Code 54038 Diagnoses Syncope and collapse R55 Hypotension I95.9 Acute anemia D64.9 Time Spent (min) 23 Documented by User: Bahman Davis MD 09/11/23 10:33 Physical Exam 2 Urinary Catheter Management: Fonseca: Cath Placed During This Visit: yes, but has since been removed by the nurse Data 09/11/23 04:40 09/11/23 04:40 A&P Assessment and plan (1) Syncope and collapse: Slow position changes with movement. Slight dizziness reported when standing up. No orthostatic changes on blood pressure currently. (2) Hypotension: No obvious medications that should contribute to orthostasis. Received 2 units of RBCs 09/10/23. Hbg noted to be 8.6 this am. No ongoing blood loss (3) Acute anemia: Plan History of idiopathic cranial hypertension. Discussed with her to review with OB, and her neurologist when her acetazolamide should be resumed, and also whether this is okay to be resumed if breast-feeding. She appears to have improved significantly. Will sign off. Please call with any questions. Attestations 2 Medical Necessity Statement*: As per primary Diagnoses Syncope and collapse R55 Hypotension I95.9 Acute anemia D64.9 Time Spent (min) 23
--- NOTE | 2023-09-11 12:13 | PM.OBGYDC ---
Discharge Providers [employer] CO[employer] T[employer]ER Date of Admission: 09/09/23 05:25 Date of Discharge: 10/07/23 Attending Provider at Admission: Adryan Lopez MD Attending Provider at Discharge: Adryan Lopez MD Primary Care Provider: Fay Sommer DO Diagnoses at Discharge Discharge Diagnosis (1) delivery, delivered, current hospitalization: Status: Resolved (2) Term delivered: Status: Acute (3) Syncope and collapse: Status: Resolved (4) Hypotension: Status: Resolved (5) Acute anemia: Status: Resolved Reason for Visit Reason for Visit: Hospital Course Hospital Course nubia Oleary is a 23 yr old established patient with an LMP of 12/08/22, GEMA of 09/14/23, placing her at 39 2/7 weeks today. Admitted for planned primary low-transverse delivery and permanent sterilization. delivery was recommended by MFM and neurologist due to the patient idiopathic intracranialhypertension. The delivery and bilateral salpingectomy were performed without complication. /postop observation was significant for a syncope episode on postop day 2 due to anemia. She was given blood transfusion. The following postobservation time was uneventful. She is tolerating diet well. Ambulating without difficulty. She was counseled regarding pelvic rest for 6 weeks (no sex, no tampons, no vaginal douches). Return to the emergency room if any fever, increased bleeding or pain. Information Peripartum Data: Infant Delivery Method: Physical Exam Narrative: GA; alert and oriented x 3 HEENT: normal Breasts: engorged Nipples - skin intact Lungs; clear to auscultation Heart: regular rhythm, no murmurs. Abd: Appropriately tender. BS+. Uterine fundus below umbilicus. No Fundal Tenderness. Incision clean and dry no signs of infection. Perineum: normal lochia. Extremities: no edema, no cyanosis, no tenderness. Urinary Catheter Management: Fonseca: Cath Placed During This Visit: yes, but has since been removed by the nurse Reason for Continuing Indwelling Catheter: Decision to DC Catheter Urinary Catheter Date of Insertion: 09/09/23 Urinary Catheter Time of Insertion: 07:15 Date Urinary Catheter Removed: 09/10/23 Time Urinary Catheter Discontinued: 01:38 History History History 3 Term 3 0 Miscarriages/Ectopic 0 Living Children 3 Past Pregnancies Del. Date GA/Weeks Outcome Route Wt Inf Gender Labor Lgth Comp. Anesthesia Location 08/24/19 38 live - full term Vaginal 3.6 kg Female [place], [place]-Dr. Avina Discharge Data Studies Completed and Pending Completed Studies During Hospitalization Category Date Time Status CXRP [XR chest 1V portable [id number]] Routine Exams 09/10/23 06:39 Completed Pending at discharge Category Date Time Status Complete Blood Count w/Auto AM LABS Lab 09/12/23 04:00 Ordered Complete Blood Count w/Auto AM LABS Lab 09/13/23 04:00 Ordered Comprehensive Metabolic Panel AM LABS Lab 09/12/23 04:00 Ordered Comprehensive Metabolic Panel AM LABS Lab 09/13/23 04:00 Ordered Fibrinogen Degradation Product Routine Lab 09/10/23 06:24 Received Occult Blood Stool [Immunochemical Fecal OCB] Routine Lab 09/10/23 07:08 Uncollected UA w/Reflex to Microscope [Urinalysis] Routine Lab 09/10/23 06:38 Uncollected Pathology: Surgical [PTH] Routine Pth 09/09/23 13:19 Received Radiology Impressions Chest X-Ray 09/10/23 06:39 IMPRESSION: No acute airspace or pleural disease. Laboratory Results WBC 12.15 10^3/uL (3.29-11.43) H 09/11/23 04:40 RBC 3.51 10^6/uL (3.85-5.65) L 09/11/23 04:40 Hgb 8.60 g/dL (11.27-16.99) L 09/11/23 04:40 Hct 28.4 % (36-47) L 09/11/23 04:40 MCV 80.9 fl (85-98) L 09/11/23 04:40 MCH 24.5 pg (27-33) L 09/11/23 04:40 MCHC 30.3 g/dL (30-55) 09/11/23 04:40 RDW 17.4 % (12.1-15.1) H 09/11/23 04:40 Plt Count 162 10^3/cmm (157-399) 09/11/23 04:40 MPV 12.8 fL (7.4-10.4) H 09/11/23 04:40 Neut % (Auto) 66.4 % 09/11/23 04:40 Lymph % (Auto) 18.7 % 09/11/23 04:40 [place] % (Auto) 6.8 % 09/11/23 04:40 Eos % (Auto) 2.9 % 09/11/23 04:40 Baso % (Auto) 0.6 % 09/11/23 04:40 Neut # (Auto) 8.07 10^3/uL (1.8-7.7) H 09/11/23 04:40 Lymph # (Auto) 2.3 10^3/uL (0.8-4.8) 09/11/23 04:40 [place] # (Auto) 0.8 10^3/uL (0.2-0.9) 09/11/23 04:40 Eos # (Auto) 0.4 10^3/uL (0.0-0.8) 09/11/23 04:40 Baso # (Auto) 0.1 10^3/uL (0.0-0.1) 09/11/23 04:40 Nucleated RBC % (auto) 0.2 % 09/11/23 04:40 Nucleated RBCs # 0.0 /100WBC 09/11/23 04:40 Peripher Smr Path Cons Sent for review 09/10/23 06:05 Haptoglobin 146.0 mg/L (30-200) 09/10/23 06:05 PT 13.90 SECONDS (12.1-14.9) 09/10/23 06:05 INR 1.04 (0.8-1.2) 09/10/23 06:05 APTT 23.2 SECONDS (23.9-36.7) L 09/10/23 06:05 Fibrinogen 327 mg/dL (174-498) 09/10/23 06:05 D-Dimer 3.16 ug/mLFEU (0-0.59) H 09/10/23 06:05 Sodium 142 mmol/L (136-145) 09/11/23 04:40 Potassium 3.9 mmol/L (3.5-5.1) 09/11/23 04:40 Chloride 108 mmol/L (98-107) H 09/11/23 04:40 Carbon Dioxide 22 mmol/L (22-29) 09/11/23 04:40 Anion Gap 15.9 (5-19) 09/11/23 04:40 BUN 8 mg/dL (6-20) 09/11/23 04:40 Creatinine 0.7 mg/dL (0.5-0.9) 09/11/23 04:40 GFR Calculation 104.6 mL/min (90-130) 09/11/23 04:40 Glucose 90 mg/dL (65-115) 09/11/23 04:40 POC Glucose 115 mg/dL (70-110) H 09/10/23 05:57 Calculated Osmolality 292 mOsm/kg (285-295) 09/11/23 04:40 Lactic Acid 2.4 mmol/L (0.5-2.2) H 09/10/23 07:47 Lactic Acid (Sepsis) 1.1 mmol/L (0.5-2.2) 09/10/23 10:47 Calcium 8.2 mg/dL (8.5-10.5) L 09/11/23 04:40 Iron 56 ug/dL (37-145) 09/10/23 06:05 TIBC 422 mcg/dl 09/10/23 06:05 % Saturation 13.2 % (20-50) L 09/10/23 06:05 Unsat Iron Binding 366 ug/dL (112-347) H 09/10/23 06:05 Ferritin 9 ng/mL (15-150) L 09/10/23 06:05 Total Bilirubin 0.2 mg/dL (0.15-1.2) 09/11/23 04:40 AST 12 U/L (0-32) 09/11/23 04:40 ALT 10 U/L (0-33) 09/11/23 04:40 Alkaline Phosphatase 61 U/L (35-105) 09/11/23 04:40 Lactate Dehydrogenase 213 U/L (135-214) 09/10/23 06:05 Troponin T Baseline 7 ng/L (0-10) 09/10/23 06:05 Troponin T 120 Minute 7.85 ng/L (0-10) 09/10/23 07:47 Delta Troponin T 0.85 ABS# (0-10) 09/10/23 07:47 Troponin T Hi Sens 6Hr 6.00 ng/L (0-10) 09/10/23 12:04 Troponin T Hi Sens 6Hr Delta -1.00 ng/L (0-12) L 09/10/23 12:04 Total Protein 5.1 g/dL (6.6-8.7) L 09/11/23 04:40 Albumin 2.8 g/dL (3.5-5.2) L 09/11/23 04:40 Globulin 2.3 g/dL (1.3-4.6) 09/11/23 04:40 Blood Type A Positive 09/09/23 20:10 Rho(D) Type Rh positive 09/09/23 20:10 Antibody Screen Negative 09/09/23 20:10 Crossmatch See Detail 09/09/23 20:10 Vitals Last Vital Signs Temp 98.3 F 09/11/23 09:00 Pulse 86 09/11/23 09:00 Resp 16 09/11/23 09:00 BP 135/84 09/11/23 09:00 Pulse Ox 97 09/11/23 04:00 O2 Del Method Room Air 09/11/23 09:00 Results Labs OB ([facility]): Obstetrics US 08/25/23 Obstetrics US/Biophysical Profile 09/03/23 Blood Type A Positive 09/09/23 Antibody Screen Negative 09/09/23 Hct 41.6 % (36-47) 09/30/23 Hgb 12.40 g/dL (11.27-16.99) 09/30/23 Rho(D) Type Rh positive 09/09/23 Plt Count 344 10^3/cmm (157-399) 09/30/23 Hep Bs Antigen Non-reactive (Nonreactive) 02/18/23 Hep Bs Antibody 3.5 (11.5-1000) L 06/18/22 Hepatitis C Antibody Non-reactive (Nonreactive) 02/18/23 Rubella IgG Antibody 32.3 IU/mL (0.0-10.0) H 02/18/23 RPR Nonreactive (Nonreactive) 02/18/23 HIV 1&2 Ab & HIV 1 Ag Non-reactive (Non-Reactiv) 02/18/23 TSH 1.22 uIU/mL (0.27-4.20) 05/06/23 Free T4 1.13 ng/dL (0.82-1.77) 05/06/23 C.trachomatis RNA (TMA) Not detected (NOT DETECTED) 07/21/23 N.gonorrhoeae RNA (TMA) Not detected (NOT DETECTED) 07/21/23 Chlamydia/GC Comment See note 07/21/23 Cystic Fibrosis Screen Negative 02/26/23 Glucose 1 Hr 50 gm 141 mg/dL (85-140) H 02/18/23 Gest Glucose Tolerance 132 mg/dL (70-139) 06/02/23 Hemoglobin A1c 5.1 % (4.0-6.0) 10/04/22 Uric Acid 4.7 mg/dL (2.4-5.7) 08/19/23 VZV IgG Antibody <135.00 index L 06/18/22 Ser , Semi-Qnt 27166.00 mIU/mL 01/26/23 HCG, Qual Positive (Negative) H 01/07/23 Urine Opiates Screen Negative ng/mL (Negative) 05/07/23 Ur Barbiturates Screen Negative ng/mL (Negative) 05/07/23 Ur Phencyclidine Scrn Negative ng/mL (Negative) 05/07/23 Ur Amphetamines Screen Negative ng/mL (Negative) 05/07/23 U Benzodiazepines Scrn Negative ng/mL (Negative) 05/07/23 Urine Cocaine Screen Negative ng/mL (Negative) 05/07/23 U Marijuana (THC) Screen Negative ng/mL (Negative) 05/07/23 Micro Urine Specimen 08/19/23 Pap Smear Interpret See note 05/03/22 Prolactin 34.25 ng/mL (4.8-23.3) H 05/19/20 Discharge Plan Discharge Patient Disposition: Home Condition: Stable Prescriptions: New ibuprofen 800 mg tablet 800 mg PO TID PRN (Reason: pain) Qty: 60 0RF Iron (ferrous sulfate) 325 mg (65 mg iron) tablet 325 mg PO BID Qty: 60 0RF Colace 100 mg capsule 100 mg PO BID Qty: 60 0RF acetaminophen 325 mg capsule 325 mg PO Q4H PRN (Reason: fever or pain) Qty: 60 0RF Continued acetazolamide 500 mg capsule, extended release 1,500 mg PO BID No Action sertraline [Zoloft] 50 mg tablet 50 mg PO DAILY Qty: 30 2RF Rx Instructions: take 1/2 tab x 2 weeks then a full tab daily Discharge Orders: Discharge Order (Routine); Ordered 09/11/23 Ordered By: Adryan Lopez Referrals: Adryan Lopez MD [Physician] - 09/25/23 10:15 am (2 week 6 week (4-11 @ 1015 AM)) Discharge Diet: Usual diet Discharge Activity: Limit activity as instructed Patient Instructions: Oxycodone/Acetaminophen (By mouth) (Percocet, Roxicet), Depression (GEN), Preeclampsia and Eclampsia After Delivery (GEN), OB WHC, OB Food/Drug Interaction Guide, OB Care at Home, Opioid Safety, OB Home Care, Abnormal Bleeding Activity Restrictions/Additional Instructions: 1. Please call [facility] on next working day to make your post-operative appointment in 2 weeks. 2. Please stay home until you come back to the clinic on first post-hospatilization check up. 3. Please follow instructions on your medications CAREFULLY. 4. If you have abdominal incision, do not cover it unless dressing is necessary because of drainage. OK to shower, but avoid bath. Leave steri-strips until they fall off. If they are still on one week after surgery, you may remove them. 5. If you had vaginal surgery or vaginal repair, Dr. Lopez may instruct you to take SITZ bath. 6. Yellow, blood tinged odorous vaginal discharge is usually normal after hysterectomy or vaginal surgeries. 7. No SEXUAL INTERCOURSE, tampons, or douches until you are completely released from the post-operative care. 8. Avoid constipation by eating right and maybe using some Metamucil or Milk of Magnesia. 9. All prescription refills are given during the working hours. Please do no wait till it runs out. Call the clinic at [phone] before your medication runs out. The clinic will get in touch with your doctor to prescribe medications if necessary. 10. Please remain within 40 mile radius from our hospital because emergencies do happen now and then during the post-operative period. 11. If you have stairs at home, take one step at a time slowly and minimize the number of trips. It helps to stay in one floor for the next few days. No lifting except what you can lift by one hand until you are released from the post-operative care. 12. Driving is discouraged until you are well healed. It may be 3-4 weeks before you feel strong enough to drive. You should be able to turn and look through the rear window without pain and you should be able to push the brake pedal very hard without pain before you drive. No fast rules, but SAFETY should be your primary concern. DO NOT drive if you are on sedating medications such as narcotics. 13. Call the clinic (during working hours) to make urgent appointment or go to the Emergency room, if any of the following occurs: i. Vaginal bleeding becomes heavy, more than a period. ii. Incision becomes red and sore, or drains pus. iii. Your TEMPERATURE is over 100.4F or you have chill. iv. IV site becomes red and swollen (a little ``knot?? is usually OK) v. Persistent nausea and vomiting vi. Persistent constipation or diarrhea vii. Rash or allergic reaction to medications. Discharge Attestations [employer] T[employer]ER Time Spent in Discharge Care*: greater than 30 min Coding Level of Care Code Acute Code for Chg Fwd Diagnoses delivery, delivered, current hospitalization O82 Term delivered O80 Syncope and collapse R55 Hypotension I95.9 Acute anemia D64.9
[2023-09-11 14:30] VITALS: BP 135/81; PULSE 99; RESP 16; TEMP 36.8
[2023-09-18 00:04] LABS: Fibrinogen Degradation Product 5 mcg/mL (LESS THAN 5)
== END 2023-09-11 15:12 | disposition home or self-care (01) | DRG 784 ==
PROVIDERS: Internal Medicine; Admitting Provider Obstetrics & Gynecology; PCP Family Medicine; Visit Provider Obstetrics & Gynecology
PROC: 10D00Z1 Extraction of Products of Conception, Low, Open Approach (ICD-10-PCS; CPT 59514; principal; 2023-09-09 07:00)
DX: O99.354 Diseases of the nervous system complicating childbirth (principal); D62 Acute posthemorrhagic anemia; G93.2 Benign intracranial hypertension; Z3A.39 39 weeks gestation of pregnancy; Z37.0 Single live birth; I95.9 Hypotension, unspecified; O90.81 Anemia of the puerperium; O72.3 Postpartum coagulation defects; D69.6 Thrombocytopenia, unspecified; O99.43 Diseases of the circulatory system complicating the puerperium; Z30.2 Encounter for sterilization
CPT/HCPCS: 36415; 36416; 36430; 51702; 58611; 59409; 71045; 80053; 80503; 82728; 82962; 83010; 83540; 83550; 83605; 83615; 84484; 85025; 85027; 85362; 85378; 85384; 85610; 85730; 86850; 86900; 86920; 88302; 93005; 96374; 96376; C9290; J1885; J2405; J2765; J3490; J7030; J7121; P9040

== ENCOUNTER → 2023-09-30 08:43 | Outpatient (BNVA) | payer MEDICAID, SELFPAY | PROVIDERS: PCP Family Medicine; Visit Provider Nurse Practitioner Women's Health | DX: O90.81 Anemia of the puerperium (principal) | CPT/HCPCS: 85025 ==

== ENCOUNTER 2023-11-18 08:03 | Outpatient (CLI) | payer MEDICAID, SELFPAY ==
[2023-11-18 08:51] LABS: Free T4 Free Thyroxine 1.46 ng/dL (0.82-1.77); Thyroid Stimulating Hormone 0.01 uIU/mL (0.27-4.20)
[2023-11-18 14:41] LABS: Iron 51 ug/dL (37-145); Percent Saturation 15.6 % (20-50); Total Iron Binding Capacity 325 mcg/dl; Unsaturated Iron Binding 274 ug/dL (112-347)
== END 2023-11-18 08:04 | disposition home or self-care (01) ==
LOC: LAB 08:05
PROVIDERS: PCP Family Medicine; Visit Provider Internal Medicine
DX: E03.9 Hypothyroidism, unspecified (principal); E06.3 Autoimmune thyroiditis; O90.81 Anemia of the puerperium
CPT/HCPCS: 36415; 83540; 83550; 84439; 84443

== ENCOUNTER → 2023-12-11 16:05 | Outpatient (BNVA) | payer MEDICAID, SELFPAY | PROVIDERS: PCP Family Medicine; Visit Provider Family Medicine | DX: Z13.6 Encounter for screening for cardiovascular disorders (principal); E66.9 Obesity, unspecified | CPT/HCPCS: 80053; 83036; 85025 ==

== ENCOUNTER → 2024-02-13 09:48 | Outpatient (BNVA) | payer MEDICAID, SELFPAY | PROVIDERS: PCP Family Medicine; Visit Provider Family Medicine | DX: E06.3 Autoimmune thyroiditis (principal) | CPT/HCPCS: 80053; 82728; 83550; 84439; 84443; 86376 ==

== ENCOUNTER 2024-02-25 07:13 | Outpatient (CLI) | payer MEDICAID, SELFPAY ==
--- NOTE | 2024-02-25 07:15 | US_ITS ---
WS: [id number] ULTRASOUND THYROID TECHNIQUE: Ultrasound of the thyroid. CLINICAL INFORMATION: enlarged tender thyroid COMPARISON: 2022 FINDINGS: Thyroid: Large heterogeneous thyroid with micronodularity. 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 Normal bilateral vascularity. No dominant nodules to target for biopsy. Overall gla nd size has decreased slightly compared to previous Right thyroid lobe: 5.2 cm x 3.2 cm x 2.6 cm Left thyroid lobe: 5.4 cm x 2.7 cm x 2.4 cm. Isthmus: 0.8 mm. Cervical lymphadenopathy: None. 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 Vascularity is normal today.
== END 2024-02-25 07:14 | disposition home or self-care (01) ==
LOC: RAD 07:13
PROVIDERS: PCP Family Medicine; Visit Provider Family Medicine
DX: E04.8 Other specified nontoxic goiter (principal)
CPT/HCPCS: 76536; 80053; 82728; 83550; 84439; 84443; 86376

== ENCOUNTER 2024-02-27 16:01 | Outpatient (CLI) | payer MEDICAID, SELFPAY ==
[2024-02-27 16:58] LABS: Iron 36 ug/dL (37-145)
[2024-03-01 10:38] LABS: Thyroid Peroxidase Antobodies 844 IU/mL (<9)
== END 2024-02-27 16:02 | disposition home or self-care (01) ==
LOC: LAB 16:03
PROVIDERS: PCP Family Medicine; Visit Provider Family Medicine
DX: E06.3 Autoimmune thyroiditis (principal); Z86.39 Personal history of other endocrine, nutritional and metabolic disease; E06.9 Thyroiditis, unspecified
CPT/HCPCS: 36415; 83540; 86376

== ENCOUNTER → 2024-03-31 10:22 | Outpatient (BNVA) | payer MEDICAID, SELFPAY | PROVIDERS: PCP Family Medicine; Visit Provider Internal Medicine | DX: E03.9 Hypothyroidism, unspecified (principal); E07.9 Disorder of thyroid, unspecified | CPT/HCPCS: 36415; 84439; 84443 ==

== ENCOUNTER 2024-06-28 10:59 | Outpatient (CLI) | payer MEDICAID, SELFPAY ==
[2024-06-28 12:11] LABS: Free T4 Free Thyroxine 1.16 ng/dL (0.82-1.77); Thyroid Stimulating Hormone 1.24 uIU/mL (0.27-4.20)
== END 2024-06-28 11:00 | disposition home or self-care (01) ==
LOC: LAB 11:02
PROVIDERS: PCP Family Medicine; Visit Provider Internal Medicine
DX: E03.9 Hypothyroidism, unspecified (principal); E07.9 Disorder of thyroid, unspecified
CPT/HCPCS: 36415; 84439; 84443

== ENCOUNTER → 2024-10-05 09:43 | Outpatient (BNVA) | payer MEDICAID, SELFPAY | PROVIDERS: PCP Family Medicine; Visit Provider Podiatrist Foot & Ankle Surgery | DX: L60.3 Nail dystrophy (principal) | CPT/HCPCS: 36415; 80053 ==

== ENCOUNTER → 2024-11-01 08:56 | Outpatient (BNVA) | payer MEDICAID, SELFPAY | PROVIDERS: PCP Family Medicine; Visit Provider Podiatrist Foot & Ankle Surgery | DX: B35.1 Tinea unguium (principal); L60.8 Other nail disorders | CPT/HCPCS: 99214 ==

== ENCOUNTER 2024-12-21 13:34 | Emergency (ER) | payer MEDICAID, SELFPAY ==
[2024-12-21 13:51] VITALS: BP 133/89; PULSE 71; RESP 17; TEMP 36.7; O2SAT 99; BMI 37.0
[2024-12-21 14:12] VITALS: BP 125/81; PULSE 72; RESP 16; O2SAT 98
--- NOTE | 2024-12-21 14:19 | ED_ITS ---
HPI - Headache 2 General: Chief Complaint: Headache Stated Complaint: blurred vision, MARIE, congestion Time Seen by Provider: 12/21/24 13:40 History of Present Illness: 24-year-old female presents emergency ro om clinic of headache blurred vision sinus congestion she recently started on antibiotic for this. She said recurrent sinus issues some pressure fullness in her ear she has been on multiple courses of antibiotics no fevers at this time. Associated symptoms: Deny chest pain, fever(s) or rash Related Data Previous Rx's ?Medication ?Instructions ?Recorded escitalopram oxalate 10 mg tablet 10 mg PO DAILY #90 t abs 07/26/24 (Lexapro) terbinafine HCl 250 mg tablet 250 mg PO DAILY #30 tabs 11/01/24 amoxicillin 875 mg-potassium 1 tab PO BID 7 days #14 t abs 12/17/24 clavulanate 125 mg tablet cetirizine 10 mg tablet (All Day 10 mg PO DAILY #30 ta bs 12/17/24 Allergy (cetirizine)) Allergies Allergy/AdvReac Type Severity Reaction Status Date / Time adhesive tape Allergy burning Verified 12/17/24 09:59 skin, rash flare up Review of Systems 2 Const: Denies: fever(s) or chills Card: Denies: chest pain Resp: Denies: dyspnea GI: Denies: abdominal pain : Denies: dysuria, urinary frequency or urinary urgency Musc: Denies: neck pain or back pain Skin/Breast: Denies: rash PFSH ED 2 PFSH: Medical History Rash Adult BMI 35.0-35.9 kg/sq m History of gestational hypertension (~2019) dx late term in her first ; induced at 38 weeks Colitis just finished abx 01/24/2023 No pertinent past medical history neghx:dm,dvt/pe PCP: Dr Sommer Idiopathic intracranial hypertension (~07/2022) Kelsey at [facility]--neuro-opthamologist Terry Lugo at [facility] Surgical History H/O bilateral salpingectomy (~09/09/23) Performed at the time of section by Dr. Lopez at [facility] Status post primary low transverse section (~09/09/23) Primary LTCS with bilateral salpingectomy for term , idiopathic intracranial hypertension and desired infertility. Performed by Dr. Lopez at [facility] S/P breast biopsy Benign cyst - bilateral breasts Family History Father Seizures Hypertension Stroke Mother No problems noted. Grandmother Hypertension paternal Grandfather Hypertension paternal Diabetes paternal Family/Other Diabetes paternal uncle Denies family history of Colon cancer Ovarian cancer Heart disease Hypercholesteremia Breast cancer Uterine cancer Thyroid disease Social History Smoking and tobacco/nicotine status: never used tobacco/nicotine Alcohol intake: current Alcohol intake frequency: holidays/special occasions only Substance/Drug Use: never Physical Exam 2 Const: COMMON NORMALS: no acute distress GENERAL APPEARANCE: cooperative and comfortable ORIENTATION/CONSCIOUSNESS: Yes awake, Yes oriented to person, Yes oriented to place and Yes oriented to time HENMT: COMMON NORMALS: normocephalic, atraumatic and hearing grossly normal bilaterally HEAD & SCALP: normocephalic and atraumatic Resp: COMMON NORMALS: normal respiratory effort, No retractions, No use of accessory muscles and clear to auscultation bilaterally AUSCULTATION: clear to auscultation bilaterally Cardio: COMMON NORMALS: regular rate, regular rhythm and No murmurs present (Cardio) RATE: regular rate RHYTHM: regular rhythm GI: COMMON NORMALS: Soft to palpation and No hepatosplenomegaly present A USCULTATION: Yes normoactive bowel sounds PALPATION: Yes Soft to palpation, No Tenderness to palpation present (GI), No Guarding due to palpation present (GI) and Yes No hepatosplenomegaly present Extremity: COMMON NORMALS: normal to inspection, capillary refill normal, no clubbing, cyanosis or edema, no calf tenderness and no pedal edema Neuro: SENSORIUM/ORIENTATION: Yes oriented to person, Yes oriented to place and Yes oriented to time OTHER: Neurologically intact no focal neurologic deficits are noted Skin: COMMON NORMALS: no rashes or lesions noted GENERAL SKIN EXAM: no rashes or lesions noted Course 2 Vital Signs: Vital signs: Vital Signs Temperature 98.0 F 12/21/24 13:51 Pulse Rate 56 L 12/21/24 15:58 Respiratory Rate 16 12/21/24 15:58 Blood Pressure 120/76 12/21/24 15:58 Pulse Oximetry 100 12/21/24 15:58 Oxygen Delivery Me thod Room Air 12/21/24 13:51 MDM - Headache Medical Decision Making No acute emergent findings neurologically exam is normal. Continue Augmentin. Will refer to ENT Lab Data 12/21/24 14:47 12/21/24 14:47 Laboratory Results WBC 7.62 10^3/uL (3.29-11.43) 12/21/24 14:47 RBC 4.87 10^6/uL (3.85-5.65) 12/21/24 14:47 Hgb 13.80 g/dL (11.27-16.99) 12/21/24 14:47 Hct 43.4 % (36-47) 12/21/24 14:47 MCV 89.1 fl (85-98) 12/21/24 14:47 MCH 28.3 pg (27-33) 12/21/24 14:47 MCHC 31.8 g/dL (30-55) 12/21/24 14:47 RDW 13.3 % (12.1-15.1) 12/21/24 14:47 Plt Count 230 10^3/cmm (157-399) 12/21/24 14:47 MPV 13.5 fL (7.4-10.4) H 12/21/24 14:47 Neut % (Auto) 57.3 % 12/21/24 14:47 Lymph % (Auto) 31.0 % 12/21/24 14:47 [place] % (Auto) 6.6 % 12/21/24 14:47 Eos % (Auto) 3.8 % 12/21/24 14:47 Baso % (Auto) 0.8 % 12/21/24 14:47 Neut # (Auto) 4.37 10^3/uL (1.8-7.7) 12/21/24 14:47 Lymph # (Auto) 2.4 10^3/uL (0.8-4.8) 12/21/24 14:47 [place] # (Auto) 0.5 10^3/uL (0.2-0.9) 12/21/24 14:47 Eos # (Auto) 0.3 10^3/uL (0.0-0.8) 12/21/24 14:47 Baso # (Auto) 0.1 10^3/uL (0.0-0.1) 12/21/24 14:47 Nucleated RBC % (auto) 0 % 12/21/24 14:47 Nucleated RBCs # 0.0 /100WBC 12/21/24 14:47 Sodium 140 mmol/L (136-145) 12/21/24 14:47 Potassium 4.1 mmol/L (3.5-5.1) 12/21/24 14:47 Chloride 105 mmol/L (98-107) 12/21/24 14:47 Carbon Dioxide 24 mmol/L (22-29) 12/21/24 14:47 Anion Gap 15.1 (5-19) 12/21/24 14:47 BUN 15 mg/dL (6-20) 12/21/24 14:47 Creatinine 0.6 mg/dL (0.5-0.9) 12/21/24 14:47 GFR Calculation 123.9 mL/min (90-130) 12/21/24 14:47 Glucose 86 mg/dL (65-115) 12/21/24 14:47 Calculated Osmolality 290 mOsm/kg (285-295) 12/21/24 14:47 Calcium 9.0 mg/dL (8.5-10.5) 12/21/24 14:47 Total Bilirubin 0.2 mg/dL (0.15-1.2) 12/21/24 14:47 AST 15 U/L (0-32) 12/21/24 14:47 ALT 16 U/L (0-33) 12/21/24 14:47 Alkaline Phosphatase 66 U/L (35-105) 12/21/24 14:47 Total Protein 6.9 g/dL (6.6-8.7) 12/21/24 14:47 Albumin 4.3 g/dL (3.5-5.2) 12/21/24 14:47 Globulin 2.6 g/dL (1.3-4.6) 12/21/24 14:47 Urine Color Yellow (Yellow) 12/21/24 14:24 Urine Appearance Clear (CLEAR) 12/21/24 14:24 Urine pH 6.0 (5-7) 12/21/24 14:24 Ur Specific [place] 1.017 (1.005-1.030) 12/21/24 14:24 Urine Protein Negative (Negative) 12/21/24 14:24 Urine Glucose (UA) Negative (Normal) 12/21/24 14:24 Urine Ketones Negative (Negative) 12/21/24 14:24 Urine Blood Negative (Negative) 12/21/24 14:24 Urine Nitrate Negative (Negative) 12/21/24 14:24 Urine Bilirubin Negative (Negative) 12/21/24 14:24 Urine Urobilinogen 1.0 mg/dL (Negative) 12/21/24 14:24 Ur Leukocyte Esterase 1+ (Negative) A 12/21/24 14:24 Urine RBC 0-2 /hpf (0-2) 12/21/24 14:24 Urine WBC 11-20 /hpf (0-5) H 12/21/24 14:24 Ur Squamous Epith Cells 0-5 /hpf (0-5) 12/21/24 14:24 Amorphous Sediment Not Reportable 12/21/24 14:24 Urine Bacteria None seen /hpf (NONE) 12/21/24 14:24 Hyaline Casts 0-4 /lpf H 12/21/24 14:24 No radiology studies performed this visit Discharge Plan Discharge Patient Disposition: Home Clinical Impression: Chronic recurrent sinusitis Condition: Stable Prescriptions: No Action terbinafine HCl 250 mg tablet 250 mg PO DAILY Qty: 30 2RF cetirizine [All Day Allergy (cetirizine)] 10 mg tablet 10 mg PO DAILY Qty: 30 0RF amoxicillin-pot clavulanate 875-125 mg tablet 1 tab PO BID 7 Days Qty: 14 0RF escitalopram oxalate [Lexapro] 10 mg tablet 10 mg PO DAILY Qty: 90 1RF Discharge Orders: Discharge ED (Routine); Ordered 12/21/24 Ordered By: Adam Hylton Referrals: Carlos Espinoza MD [Primary Care Provider, Family Practice] Discharge Diet: Usual diet Discharge Activity: Resume usual activity Patient Instructions: Opioid Safety, Pain Management Activity Restrictions/Additional Instructions: Thank you for choosing [facility] for your healthcare needs today. It is very important that you follow up as instructed or that you return to the Emergency Department should you have concerns or if your condition changes or worsens in any way. You are seen emergency room with complaint of chronic headache and recurrent chronic sinusitis. Recommend completing the antibiotics you are currently on case packer will try to make arrangements. I will follow-up with Dr. Vieyra's office. Complete the antibiotic you are currently taking for now. Print Language: [place]an Coding Level of Care Code ED R D Intern for Jesse Plunkett
--- NOTE | 2024-12-21 14:27 | ECG_ITS ---
[employer] Test Date: 2024-12-21 Pat Name: Delfina Oleary Department: Room: Gender: Female Legal Officer: : 2000 Requested By: Adam Rivas Order Number: [id number] Horton MD: Yassine Jarrell M.D. Measurements Intervals [place] Rate: 66 P: 30 VA: 165 QRS: 34 QRSD: 98 T: 18 QT: 397 QTc: 418 Interpretive Statements SINUS RHYTHM WITH SINUS ARRHYTHMIA Compared to ECG 09/10/2023 09:32:47 No significant changes Electronically Signed On 12-22-2024 22:04:06 CDT by Yassine Jarrell M.D. [email or web address]
[2024-12-21 14:36] LABS: Bilirubin Urine Negative (Negative); Blood Urine Negative (Negative); Glucose Urine UA Negative (Normal); Ketones Urine Negative (Negative); Leukocyte Esterase Urine 1+ (Negative); Nitrate Urine Negative (Negative); Protein Urine Negative (Negative); Specific Gravity, Urine 1.017 (1.005-1.030); Urine Appearance Clear (CLEAR); Urine Color Yellow (Yellow)
[2024-12-21] MEDS: promethazine 25 mg/mL SDV 1 mL IM (14:38)
[2024-12-21] MEDS: ketorolac 30 mg/mL INJ IVP (14:39)
[2024-12-21 14:41] LABS: Add Urine Microscopic? YES; Bacteria Urine None Seen /hpf; Hyaline Casts Urine 0-4 /lpf; RBC Urine 0-2 /hpf (0-2); Squamous Epithelial Cell Urine 0-5 /hpf (0-5)
[2024-12-21 15:13] VITALS: BP 120/76; PULSE 58; RESP 16; O2SAT 99
[2024-12-21 15:13] LABS: Basophils # 0.1 10^3/uL (0.0-0.1); Basophils % 0.8 %; Eosinophils # 0.3 10^3/uL (0.0-0.8); Eosinophils % 3.8 %; Hematocrit 43.4 % (36-47); Lymphocytes # 2.4 10^3/uL (0.8-4.8); Mean Corpuscular HGB Conc 31.8 g/dL (30-55); Mean Corpuscular Hemoglobin 28.3 pg (27-33); Mean Corpuscular Volume 89.1 fl (85-98); Mean Platelet Volume 13.5 fL (7.4-10.4); Monocytes # 0.5 10^3/uL (0.2-0.9); Monocytes % 6.6 %; Neutrophils # 4.37 10^3/uL (1.8-7.7); Neutrophils % 57.3 %; Nucleated Red Blood Cells % 0 %; Platelet Count 230 10^3/cmm (157-399); Red Blood Count 4.87 10^6/uL (3.85-5.65); Red Cell Distribution Width 13.3 % (12.1-15.1); White Blood Count 7.62 10^3/uL (3.29-11.43)
[2024-12-21 15:21] LABS: Slide Review Slide Review Perform
[2024-12-21 15:36] LABS: Alanine Aminotransferase 16 U/L (0-33); Albumin Level 4.3 g/dL (3.5-5.2); Alkaline Phosphatase 66 U/L (35-105); Anion Gap 15.1 (5-19); Aspartate Amino Transferase 15 U/L (0-32); Blood Urea Nitrogen 15 mg/dL (6-20); Carbon Dioxide 24 mmol/L (22-29); Chloride 105 mmol/L (98-107); Creatinine Clr Calc Pharmacy 159.6734; Globulin 2.6 g/dL (1.3-4.6); Glomerular Filtration Rate 123.9 mL/min (90-130); Glucose 86 mg/dL (65-115); Osmolality Calculated 290 mOsm/kg (285-295); Potassium 4.1 mmol/L (3.5-5.1); Sodium 140 mmol/L (136-145); Total Bilirubin 0.2 mg/dL (0.15-1.2); Total Protein 6.9 g/dL (6.6-8.7)
[2024-12-21 15:42] VITALS: BP 120/76; PULSE 56; RESP 16; O2SAT 99
[2024-12-21 15:58] VITALS: BP 120/76; PULSE 56; RESP 16; O2SAT 100
--- NOTE | 2024-12-23 11:15 | DCPLANNER ---
faxed referral packet to [facility]
== END 2024-12-21 16:01 | disposition home or self-care (01) ==
PROVIDERS: Emergency Provider Family Medicine; PCP Family Medicine
DX: J32.8 Other chronic sinusitis (principal)
CPT/HCPCS: 36415; 80053; 81001; 85025; 93005; 96372; 96374; 99284; J1885; J2550

== ENCOUNTER 2025-02-23 15:53 | Outpatient (CLI) | payer MEDICAID, SELFPAY ==
[2025-02-23 20:38] LABS: Free T4 Free Thyroxine 1.33 ng/dL (0.82-1.77); Thyroid Stimulating Hormone 0.88 uIU/mL (0.27-4.20)
== END 2025-02-23 15:54 | disposition home or self-care (01) ==
LOC: LAB 15:56
PROVIDERS: PCP Family Medicine; Visit Provider Internal Medicine
DX: E06.9 Thyroiditis, unspecified (principal); R13.10 Dysphagia, unspecified; E03.9 Hypothyroidism, unspecified
CPT/HCPCS: 36415; 84439; 84443